=== PATIENT | female | born 1955 | race Caucasian/White ===

== ENCOUNTER → 2019-09-02 16:20 | Outpatient (CLI) | payer OTHER, SELFPAY ==
[2016-01-26 11:03] VITALS: BMI 23.6
== END ==
PROVIDERS: PCP Family Medicine; Referring Provider Urology; Visit Provider Urology
DX: N20.9 Urinary calculus, unspecified (principal)
CPT/HCPCS: 82360

== ENCOUNTER 2021-10-18 10:05 | Outpatient (CLI) | payer OTHER, SELFPAY ==
--- NOTE | 2021-10-18 10:16 | RAD_ITS ---
STUDY: AP SUPINE ABDOMEN AND PELVIS X-RAY--2 VIEWS OF 223 HOURS ON 10/18/2021 REASON FOR EXAM: 66-year-old female with flank pain--evaluate for urinary calculus. TECHNIQUE: A 2 view supine AP abdomen/pelvis x-ray series was performed per protocol. COMPARISON: None. FINDINGS: Mild demineralization. No organomegaly. Presence of multiple calcifications or calculi in both kidneys. Largest measures 6 mm in diameter. No calcifications or calculi in the region of the ureters or bladder. There are 2 pelvic phleboliths in the left pelvis. There is a question of an 8 centimeter diameter mass-like density overlying or part of the left kidney on one view. This may be artifactual. Computed tomography would be elucidative. There is [id number] constipation. There is no demonstration of other abnormalities. RAD/Abdomen Single View IMPRESSION: 1. Multiple calcifications are calculated regions of both kidneys, with the largest measuring 6 mm in diameter. 2. No calcifications or calculi in the region of the ureters or bladder. 3. Two pelvic phleboliths in the left pelvis. 4. Mild to moderate constipation. 5. Questionable 8 cm in diameter mass-like density overlying or part of the left kidney on one view. This may be artifactual. Computed tomography would be elucidative. Electronically Signed: Gaurav Sanchez MD at 17:33 EDT ,
== END 2021-10-18 23:59 | disposition home or self-care (01) ==
PROVIDERS: PCP Family Medicine; Referring Provider Registered Nurse; Visit Provider Registered Nurse
DX: N20.9 Urinary calculus, unspecified (principal)
CPT/HCPCS: 74018

== ENCOUNTER → 2022-02-13 | Outpatient (CLI) | payer OTHER, SELFPAY ==
--- NOTE | 2022-02-13 17:31 | CT_ITS ---
STUDY: CT ABDOMEN AND PELVIS WITH CONTRAST REASON FOR EXAM: Female, 66 years old. History of left renal cyst. RADIATION DOSAGE (If Supplied By Facility): CTDIvol = ( 15.43 ) mGy, DLP = ( 900.09 ) mGycm TECHNIQUE: Transaxial images were obtained from the dome of the diaphragm to the symphysis pubis without oral contrast. IV 100mL Isovue-300 was administered. Sagittal and coronal images were reconstructed. Individualized dose optimization techniques were used for this CT. COMPARISON: Comparison is made with prior study 01/26/2016. FINDINGS: Stable mild degree of increased markings in the anterior aspect of the left lower lobe suggestive of scarring. The visualized portions of the heart are within normal limits. There is decreased attenuation of the liver consistent with steatosis. Normal gallbladder and extrahepatic biliary system. Normal spleen. Normal pancreas. Normal bilateral adrenal glands. Multiple nonobstructive right intrarenal calculi. 1.3 cm cyst in the upper pole of the right kidney. There is a 7.5 cm x 6.6 cm cyst in the anterior lateral superior and midportion of the left kidney. Multiple nonobstructive left intrarenal calculi. These are essentially unchanged. Medullary sponge kidney should be ruled out. There is a small hiatal hernia. Normal small intestine. There are scattered colonic diverticula consistent with diverticulosis. The appendix is visualized and appears normal. There is diffuse atherosclerotic calcification of the abdominal aorta, without a demonstrated aneurysm. Normal inferior vena cava. Normal retroperitoneum. Normal urinary bladder. There is a small umbilical hernia containing fat. There are degenerative changes of the visualized lumbar spine. CT/Abdomen/Pelvis W IV Cont ONLY IMPRESSION: Large cyst in the left kidney. Multiple bilateral nonobstructive intrarenal calculi. These are unchanged. Medullary sponge kidney should be ruled out. Fatty infiltration of the liver. Electronically Signed: Boubacar Humphreys MD at 9:04 EDT ,
[2022-02-13 18:00] LABS: CREATININE FINGERSTICK < 0.9 mg/dL (0.55-1.02); EGFR FINGERSTICK > 60.0000 mL/min (>60)
== END | disposition home or self-care (01) ==
LOC: CT 17:26
PROVIDERS: PCP Family Medicine; Visit Provider Urology
DX: N28.1 Cyst of kidney, acquired (principal)
CPT/HCPCS: 74177; Q9967

== ENCOUNTER → 2025-06-02 | Outpatient (CLI) | payer MEDICARE, OTHER, SELFPAY ==
[2025-06-02 08:26] LABS: Mucous, Urine 0 SEEN /hpf (<or=2+); Red Blood Cells-Urine 0 SEEN /hpf (0-5)
[2025-06-02 10:19] LABS: Color, Urine Yellow (Yellow); Glucose, Dipstick Normal (Normal); Ketone-Dipstick Negative (Negative); Leukocyte Esterase-Dipstick 25 /ul (Negative); Nitrite-Dipstick Negative (Negative); Occult Blood-Urine 10 /ul (Negative); Protein-Dipstick 15 mg/dl (Negative); Specific Gravity, Urine 1.010 (1.002-1.030); Urine Bilirubin Dipstick Negative (Negative)
[2025-06-02 10:20] LABS: Hematocrit 46.8 % (37-47); Hemoglobin 15.4 g/dL (12.0-15.0); Immature Granulocytes Count 0.010 X10^3/uL (0.0-0.0); Mean Corp Hgb Conc 32.9 g/dL (32-36); Mean Corpuscular Volume 94.5 fL (81-99); Mean Platelet Vol. 9.8 fl (6.2-12.0); NRBC Flagged by Analyzer 0 % (0-5); Platelet Count 216 K/mm3 (150-450); RBC Distribution Width CV 12.3 % (11.6-14.6); RBC Distribution Width SD 42.5 fl (35.1-43.9); Red Blood Count 4.95 M/mm3 (4.2-5.4); White Blood Count 4.3 K/mm3 (4.4-11.0)
[2025-06-02 10:42] LABS: Creatinine, Urine (random) 80.50 mg/dL (28.00-217.00); Microalbumin,Random Urine 22.1 mg/L (<20 mg/L)
[2025-06-02 10:50] LABS: Squamous Epithelial Cells - UA 0-5 SEEN /hpf (5-10)
[2025-06-02 11:04] LABS: AST(SGOT) 30 U/L (<=31); Alanine Aminotransfer ALT/SGPT 31 U/L (<=34); Albumin, Serum 4.1 g/dL (3.4-4.8); Alkaline Phosphatase 55 U/L (35-104); Anion Gap 9 (5-15); BUN 14 mg/dL (4-19); BUN/Creat Ratio 15.6 RATIO (10-20); Calcium,Total 8.8 mg/dL (7.6-11.0); Carbon Dioxide 27.4 mmol/L (21.0-32.0); Chloride 105 mmol/L (98-108); Cholesterol 152 mg/dL (<=200); Globulin 2.8 g/dL (2.2-4.2); Glucose 100 mg/dL (70-99); Hepatitis C Antibody Nonreactive (Nonreactive); Low Density Lipoprotein Calc. 74 mg/dL; Potassium 4.2 mmol/L (3.3-5.1); Triglycerides 93 mg/dL; Very Low Density Lipoprotein 19 mg/dL (5-40); Vitamin D,25 Hydroxy 42.3 ng/mL (30-100); cholesterol:hdl ratio screen 2.51
== END | disposition home or self-care (01) ==
LOC: CIMLAB 08:24
PROVIDERS: PCP Internal Medicine; Referring Provider Internal Medicine; Visit Provider Internal Medicine
DX: E78.00 Pure hypercholesterolemia, unspecified (principal); Z86.32 Personal history of gestational diabetes; E03.9 Hypothyroidism, unspecified; M85.80 Other specified disorders of bone density and structure, unspecified site; I10 Essential (primary) hypertension
CPT/HCPCS: 36415; 80053; 80061; 81001; 82043; 82306; 82570; 83036; 84443; 85025; 86803

== ENCOUNTER → 2025-06-17 | Outpatient (CLI) | payer MEDICARE, OTHER, SELFPAY ==
--- NOTE | 2025-06-17 07:16 | BI_ITS ---
EXAM: SCRN MAMM (CAD)W/AMY BILAT DATE: 06/17/2025 CLINICAL HISTORY: F, Age 69 y/o , SCRN MAMM (CAD)W/AMY BILAT TECHNIQUE: Procedure Code: [id number] Modality: MG Procedure: SCRN MAMM (CAD)W/AMY BILAT COMPARISON: Prior exam(s) dated 05/18/2024, 12/10/2022. FINDINGS: TISSUE DENSITY: The breasts are heterogeneously dense, which may obscure small masses. The mammogram demonstrates that the patient has dense breasts. Supplemental screening with whole breast ultrasound or MRI may be considered for further evaluation. Bilateral Breast Mammographic Findings: No significant masses, calcifications or other abnormalities are identified. BI/SCRN MAMM (CAD)W/AMY BILAT IMPRESSION: There is no mammographic evidence of malignancy. OVERALL FINAL ASSESSMENT BI-RADS 1: NEGATIVE. RECOMMENDATION: Routine annual follow-up in 1 Year Additional Recommendation none A letter with findings and recommendations will be mailed to the patient. Reading Location: [id number]
--- OUTSIDE RECORDS SUMMARY | 2025-06-17 07:36 | XMS RPT_ITS | CCD ---
Author Organization [facility] Care Team Providers Care Composing Room Machinist Name Role Phone Keshawn French Primary Care Provider Mauro Tomlinson DO Primary Care Provider Mauro Tomlinson DO Primary Care Provider Keshawn French DO Primary Care Provider Keshawn French DO Primary Care Provider Mauro Tomlinson DO Primary Care Provider Keshawn French DO Primary Care Provider Davi SHOOK Mauro Wili Primary Care Provide r SELF Referring Unavailable [facility] Primary Care Unavail able RYAN BARBOSA Attending Unavailabl e [facility] Referring Unavail able [facility] Primary Care Unavail able MORENITA KAN Attending Unavailable [facility] Primary Care Unavail able RYAN BARBOSA Referring Unavailabl e [facility] Primary Care Unavail able RYAN BARBOSA Referring [facility]abl [facility] Primary Care Unavail able RYAN BARBOSA Referring Unavailabl e [facility] Primary Care Unavail able ELDON, YUMI Admitting Unavailable ELDON, YUMI Attending Unavailable ELDON, YUMI Referring Unavailable PETRIA, ADAMS Primary Care Unavailable PETRIA, ADAMS Primary Care Unavailable ELDON, YUMI Attending Unavailable PETRILLA, ADAMS Primary Care Unavailable MoecassoKeshawn Primary Care Unavailable Fast, Doris Attending Unavailable Fast, Doris Referring Unavailable Fast, Doris Primary Care Unavailable Fast, Doris Attending Unavailable Fast, Doris Primary Care Unavailable Fast, Doris Attending Unavailable Fast, Doris Referring Unavailable Allergies Allergy Classification Reported Allergen(s) Allergy Type Date of Onset Reaction(s) Facility Adhesive Tape (1 source) Adhesive Tape Substance Allergy 1 [facility] (1 source) Adhesive Tape Propensity to adverse reactions to drug 1 [facility] (20 sources) Wound Dressing Adhesive Drug Intolerance 1 [facility] (20 sources) Lisinopril; Translations: [LISINOPRIL] Propensity to adverse reactions 3 Cough [facility] (13 sources) Lisinopril Drug Allergy 4 Cough [facility] Medications Current Medications Medication Drug Class(es) Dates Sig (Normalized) Sig (Original) acetaminophen 325 mg / HYDROcodone bitartrate 5 mg oral tablet (3 sources) Opioid Agonist Start: 01-26-2016 take 1 tablet by mouth every four hours as needed Hydrocodone-Aceta minophen Active 1 - 2 TABLET PO EVERY 4 HOURS NEEDED January 26, 2016 1:32pm alendronic acid 70 mg oral tablet (20 sources) Bisphosphonate Start: 07-01-2022 End: 02-03-2025 take 1 tablet by mouth every week alendronate (Fosamax) 70 MG tablet Take 70 mg by mouth once a week. 07/01/2022 Active Comment on above: Take 1 tablet by tyrone one time a week. In AM with cup of water on empty stomach. Nothing else by mouth and stay upright for 30 min. atorvastatin 10 mg oral tablet (2 sources) HMG-CoA Reductase Inhibitor Start: 08-03-2022 End: 11-01-2022 take 1 tablet by mouth once daily atorvastatin (Lipitor) 10 MG tablet Take 1 tablet (10 mg) by mouth daily. 90 tablet 1 08/03/2022 11/01/2022 Active cetirizine hydrochloride 10 mg oral tablet (20 sources) Histamine-1 Receptor Antagonist Start: 04-14-2023 End: 08-29-2025 take 1 tablet by mouth once daily cetirizine (ZyrTEC) 10 MG tablet Indications: Sinus congestion Take 1 tablet (10 mg) by mouth daily. 90 tablet 3 09/03/2024 08/29/2025 Active Start: 11-13-2022 End: 03-25-2023 take 1 tablet by mouth once daily cetirizine (ZyrTEC) 10 MG tablet Indications: Sinus congestion Take 1 tablet (10 mg) by mouth daily. 30 tablet 1 01/24/2023 03/25/2023 Active cholecalciferol 0.125 mg oral tablet (20 sources) Vitamin D Start: 07-01-2020 take 1 tablet by mouth once daily cholecalciferol (VITAMIN D-3) 5,000 unit tab Indications: Vitamin D deficiency Take 1 tablet by mouth once daily. 90 tablet 3 07/01/2020 Active Start: 05-02-2016 take 1 capsule by mo [facility] in the morning cholecalciferol (Vitamin D-3) 25 MCG (1000 UT) capsule Take 5,000 Units by mouth in the morning. 05/02/2016 Active Start: 05-02-2016 vitamin D 1000 UNITS CAPS Take 5,000 Units by mouth daily 0 05/02/2016 Active Start: 05-02-2016 take 1 capsule by mo [facility] once daily vitamin D 1000 UNITS CAPS Take 1,000 Units by mouth daily 0 05/02/2016 Active Comment on above: Take 1 tablet by [facility] once daily. fluorouracil 50 mg/ml topical cream (7 sources) Nucleoside Metabolic Inhibitor Start: 01-07-20 25 Fluorouracil 5 % cream Apply to affected area two times a day. 01/06/2025 Active fluticasone propionate 0.05 mg/actuat metered dose nasal spray (20 sources) Corticosteroid Start: 04-16-20 End: 05-10-20 take 1 spray(s) nasal route once daily fluticasone (Flonase) 50 MCG/ACT nasal spray Administer 1 spray into each nostril daily. Shake gently. Before first use, prime pump. After use, clean tip and replace cap. 16 g 1 05/10/2025 Active Start: 11-13-2022 End: 04-28-2024 take 2 spray(s) nasal route twice daily fluticasone (Flonase) 50 MCG/ACT nasal spray Indications: Sinus congestion Administer 2 sprays into each nostril 2 times daily. Shake gently. Before first use, prime pump. After use, clean tip and replace cap. 16 g 1 04/29/2023 01/27/2024 Discontinued (Alternate therapy) levothyroxine sodium 0.075 mg oral tablet (20 sources) l-Thyroxine Start: 04-17-2022 Synthroid 75 M CG tablet 04/17/2022 Active Start: 01-26-2016 End: 02-15-2025 levothyroxine (SYNTHROID) 75 mcg tablet Indications: Postoperative hypothyroidism Take one pill daily, no pill on Sundays. 90 tablet 3 01/19/2024 02/15/2025 Discontinued Comment on above: Take one pill daily, no pill on Sundays. lisinopril 5 mg oral tablet (19 sources) Angiotensin Converting Enzyme Inhibitor Start: 0 End: 4 take 1 tablet by mouth once daily lisinopril 5 MG tablet Take 1 tablet (5 mg) by mouth daily. 90 tablet 1 07/18/2022 Active Comment on above: Take 5 mg by mouth o nce daily. losartan potassium 25 mg oral tablet (20 sources) Angiotensin 2 Receptor Angus Start: 4 End: 5 take 1 tablet by mouth once daily losartan (Cozaar) 50 MG tablet Take 1 tablet (50 mg) by mouth daily. 30 tablet 11 05/13/2024 05/17/2024 Discontinued (Patient refused) Start: 04-16-2024 End: 05-17-2025 take 1 tablet by mouth once daily losartan (Cozaar) 25 MG tablet Take 1 tablet (25 mg) by mouth daily. \ 90 tablet 1 03/08/2025 Active ondansetron 4 mg disintegrating oral tablet (3 sources) Serotonin-3 Receptor Antagonist Start: 01-26-2016 take 4 mg by mouth every eight hours as needed Ondansetron Active 4 MG PO EVERY 8 HOURS NEEDED January 26, 2016 1:32pm predniSONE 10 mg oral tablet (1 source) Start: 07-13-2020 predniSONE (DELTASONE) 10 MG tablet one q.i.d. for 2 days then one t.i.d. for 2 days then one b.i.d. for 2 days and one daily for 2 days. 20 tablet 0 07/13/2020 Active rosuvastatin calcium 10 mg oral tablet (5 sources) HMG-CoA Reductase Inhibitor Start: 01-21-2025 take 1 tablet by mouth once daily rosuvastatin (CRESTOR) 10 mg tablet Indications: Hypercholesterolemia Take 1 tablet by mouth once daily. 90 tablet 3 01/21/2025 Active Completed/Discontinued Medications Medication Drug Class(es) Dates Sig (Normalized) Sig (Original) docosahexaenoic acid 120 mg / eicosapentaenoic acid 180 mg oral capsule (11 sources) End: 07-25-2023 omega-3 (Fish Oil) 1000 MG capsule Take 3,000 mg by mouth. 0 07/25/2023 Discontinued (Therapy completed) Red Yeast Rice Extract (RED YEAST RICE PO) (5 sources) End: 07-25-2023 take 600 mg by mouth once daily Red Yeast Rice Extract (RED YEAST RICE PO) Take 600 mg by mouth daily. 0 07/25/2023 Discontinued (Therapy completed) take 600 mg by mouth once daily Red Yeast Rice Extract (RED YEAST RICE PO) Take 600 mg by mouth daily. 0 Active Problems Active Problems Problem Classification Problem Date Documented Da te Episodic/Chronic Complications of surgical procedures or medical care (20 sources) Postoperative hypothyroidism; Translations: [Postprocedural hypothyroidism] Onset: 03-05-2011 Chronic Diabetes or abnormal glucose tolerance complicating ; childbirth; or the puerperium (1 source) Personal history of gestational diabetes; Translations: [Personal history of gestational diabetes] Onset: 06-02-2025 Episodic Disorders of lipid metabolism (20 sources) Hypercholesterolemia ; Translations: [Pure hypercholesterolemia , unspecified] Onset: 12-18-2016 08-22-2017 Chronic Essential hypertension (20 sources) Essential hypertension; Translations: [Essential (primary) hypertension] Onset: 01-16-2023 01-16-2023 Chronic Genitourinary congenital anomalies (20 sources) Medullary sponge kidney; 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] Onset: 03-05-2011 08-22-2017 Chronic Menopausal disorders (6 sources) Premature menopause; Translations: [Asymptomatic premature menopause] Onset: 01-19-2025 01-19-2025 Chronic Nonspecific chest pain (1 source) Chest discomfort; Translations: [Other chest pain] 01-16-2023 Episodic Nutritional deficiencies (20 sources) Vitamin D deficiency; Translations: [Vitamin D deficiency, unspecified] Onset: 05-02-2016 Chronic Osteoarthritis (2 sources) Osteoarthritis of joint of right shoulder region; Translations: [Primary osteoarthritis, right shoulder] 04-27-2024 Chronic Other bone disease and musculoskeletal deformities (2 sources) Other specified disorders of bone density and structure, unspecified site; Translations: [Osteopenia, unspecified location] Onset: 08-16-2021 Episodic Other lower respiratory disease (1 source) Snoring; Translations: [Snoring] 04-16-2024 Episodic Other non-traumatic joint disorders (1 source) Chronic ankle pain; Translations: [Chronic pain of left ankle] Episodic Other non-traumatic joint disorders (5 sources) Pain in right shoulder; Translations: [Pain in joint, shoulder region] 04-16-2024 Episodic Other screening for suspected conditions (not mental disorders or infectious disease) (8 sources) Patient encounter status; Translations: [Encounter for screening for diabetes mellitus] Onset: 05-18-2024 01-16-2023 Episodic Other upper respiratory disease (18 sources) Allergic rhinitis; Translations: [Allergic rhinitis, unspecified] 04-16-2024 Chronic Other upper respiratory disease (5 sources) Congestion of nasal sinus; Translations: [Nasal congestion] 01-24-2023 Episodic Residual codes; unclassified (1 source) Other specified health status; Translations: [Other drug allergy] 01-16-2023 Episodic Spondylosis; intervertebral disc disorders; other back problems (1 source) Acute low back pain; Translations: [Acute low back pain without sciatica, unspecified back pain laterality] 06-07-2022 Episodic Thyroid disorders (20 sources) Hypothyroidism; Translations: [Hypothyroidism, unspecified] Onset: 03-05-2011 Resolved: 01-27-2024 08-22-2017 Chronic Past or Other Problems Problem Classification Problem Date Documented Da te Episodic/Chronic Other and unspecified benign neoplasm (20 sources) Polyp of ascending colon; Translations: [Polyp of colon] Onset: 01-16-2023 Resolved: 07-25-2023 01-16-2023 Episodic Other bone disease and musculoskeletal deformities (20 sources) Osteopenia; Translations: [Other specified disorders of bone density and structure, unspecified site] Onset: 04-14-2014 Episodic Other connective tissue disease (1 source) Pain in right thumb Episodic Other connective tissue disease (1 source) Digital mucous cyst Episodic Other endocrine disorders (15 sources) Hyperparathyroidism; Translations: [Hyperparathyroidism ] Onset: 04-02-2003 Resolved: 03-05-2011 03-05-2011 Chronic Other endocrine disorders (15 sources) Primary hyperparathyroidism; Translations: [Primary hyperparathyroidism] Onset: 03-05-2011 Resolved: 03-05-2011 03-05-2011 Chronic Other lower respiratory disease (20 sources) Angiotensin-converti ng-enzyme inhibitor adverse reaction; Translations: [Cough secondary to angiotensin converting enzyme inhibitor (DEVON-I)] Onset: 07-25-2023 07-25-2023 Episodic Other nutritional; endocrine; and metabolic disorders (20 sources) H/O: endocrine disorder; Translations: [Personal history of other endocrine, nutritional and metabolic disease] Onset: 08-22-2017 08-22-2017 Episodic Residual codes; unclassified (20 sources) History of colonoscopy; Translations: [Other specified postprocedural states] Onset: 07-25-2023 07-25-2023 Episodic Results Test Name Value Interpretation Reference Range Facility CBC W/Diff, Automatedon 11-0 Absolute Lymph 1.84 X10 3/uL Normal 0.83-4.51 [facility] Comment on above: Performed By: #### L 400.0001, L500.4050, L506.1001, L3890.6301, L501.9985, L100.0100, L501.9520, L500.4100, L502.0250 #### [facility] [address] [place], [address] Absolute Neut 2.0 X10 3/uL Normal 2.0-7.7 [facility] Comment on above: Performed By: #### L 400.0001, L500.4050, L506.1001, L3890.6301, L501.9985, L100.0100, L501.9520, L500.4100, L502.0250 #### [facility] [address] [place], [address] Basophils/100 WBC (Bld) 0.7 % Normal 0-1 [facility] Comment on above: Performed By: #### L 400.0001, L500.4050, L506.1001, L3890.6301, L501.9985, L100.0100, L501.9520, L500.4100, L502.0250 #### [facility] [address] [place], [address] Eosinophils/100 WBC (Bld) 1.6 % Normal 0-5 [facility] Comment on above: Performed By: #### L 400.0001, L500.4050, L506.1001, L3890.6301, L501.9985, L100.0100, L501.9520, L500.4100, L502.0250 #### [facility] [address] [place], [address] Erythrocyte distribution width (RBC) [Ratio] 12.3 % Normal 11.6-14.6 [facility] Comment on above: Performed By: #### L 400.0001, L500.4050, L506.1001, L3890.6301, L501.9985, L100.0100, L501.9520, L500.4100, L502.0250 #### [facility] [address] [place], [address] Hematocrit (Bld) [Volume fraction] 46.8 % Normal 37-47 [facility] Comment on above: Performed By: #### L 400.0001, L500.4050, L506.1001, L3890.6301, L501.9985, L100.0100, L501.9520, L500.4100, L502.0250 #### [facility] [address] [place], [address] Hemoglobin (Bld) [Mass/Vol] 15.4 g/dL High 12.0-15.0 [facility] Comment on above: Performed By: #### L 400.0001, L500.4050, L506.1001, L3890.6301, L501.9985, L100.0100, L501.9520, L500.4100, L502.0250 #### [facility] [address] [place], [address] IG% 0.200 Normal 0.0-0.9 [facility] Comment on above: Result Comment: IG% - Immature Granulocytes (promyelocytes, myelocytes and metamyelocytes) > 1% indicates that a LEFT SHIFT is Present. Performed By: #### L 400.0001, L500.4050, L506.1001, L3890.6301, L501.9985, L100.0100, L501.9520, L500.4100, L502.0250 #### [facility] [address] [place], [address] Lymphocytes/100 WBC (Bld) 42.8 % High 19-41 [facility] Comment on above: Performed By: #### L 400.0001, L500.4050, L506.1001, L3890.6301, L501.9985, L100.0100, L501.9520, L500.4100, L502.0250 #### [facility] [address] [place], [address] MCH (RBC) [Entitic mass] 31.1 pg Normal 27.0-32.0 [facility] Comment on above: Performed By: #### L 400.0001, L500.4050, L506.1001, L3890.6301, L501.9985, L100.0100, L501.9520, L500.4100, L502.0250 #### [facility] [address] [place], [address] MCHC (RBC) [Mass/Vol] 32.9 g/dL Normal 32-36 [facility] Comment on above: Performed By: #### L 400.0001, L500.4050, L506.1001, L3890.6301, L501.9985, L100.0100, L501.9520, L500.4100, L502.0250 #### [facility] [address] [place], [address] MCV (RBC) [Entitic vol] 94.5 fL Normal 81-99 [facility] Comment on above: Performed By: #### L 400.0001, L500.4050, L506.1001, L3890.6301, L501.9985, L100.0100, L501.9520, L500.4100, L502.0250 #### [facility] [address] [place], [address] Monocytes/100 WBC (Bld) 7.9 % Normal 0-10 [facility] Comment on above: Performed By: #### L 400.0001, L500.4050, L506.1001, L3890.6301, L501.9985, L100.0100, L501.9520, L500.4100, L502.0250 #### [facility] [address] [place], [address] Neutrophils/100 WBC (Bld) 46.8 % Low 47-70 [facility] Comment on above: Performed By: #### L 400.0001, L500.4050, L506.1001, L3890.6301, L501.9985, L100.0100, L501.9520, L500.4100, L502.0250 #### [facility] [address] [place], [address] Nucleated RBC (Bld) [#/Vol] 0 10*3/uL Normal 0-5 [facility] Comment on above: Performed By: #### L 400.0001, L500.4050, L506.1001, L3890.6301, L501.9985, L100.0100, L501.9520, L500.4100, L502.0250 #### [facility] [address] [place], [address] Platelet mean volume (Bld) [Entitic vol] 9.8 fL Normal 6.2-12.0 [facility] Comment on above: Performed By: #### L 400.0001, L500.4050, L506.1001, L3890.6301, L501.9985, L100.0100, L501.9520, L500.4100, L502.0250 #### [facility] [address] [place], [address] Platelets (Bld) [#/Vol] 216 10*3/uL Normal 150-450 [facility] Comment on above: Performed By: #### L 400.0001, L500.4050, L506.1001, L3890.6301, L501.9985, L100.0100, L501.9520, L500.4100, L502.0250 #### [facility] [address] [facility] [place], [address] RBC (Bld) [#/Vol] 4.95 10*6/uL Normal 4.2-5.4 [facility] Comment on above: Performed By: #### L 400.0001, L500.4050, L506.1001, L3890.6301, L501.9985, L100.0100, L501.9520, L500.4100, L502.0250 #### [facility] [address] [facility] [place], [address] RDW SD 42.5 fl Normal 35.1-43.9 [facility] Comment on above: Performed By: #### L 400.0001, L500.4050, L506.1001, L3890.6301, L501.9985, L100.0100, L501.9520, L500.4100, L502.0250 #### [facility] [address] [facility] [address] [place], [address] WBC (Bld) [#/Vol] 4.3 10*3/uL Low 4.4-11.0 [facility] Comment on above: Performed By: #### L 400.0001, L500.4050, L506.1001, L3890.6301, L501.9985, L100.0100, L501.9520, L500.4100, L502.0250 #### [facility] [address] [place], [place], [id number] Comprehensive Metabolic Prof ilon 06-02-2025 Albumin [Mass/Vol] 4.1 g/dL Normal 3.4-4.8 [facility] Comment on above: Performed By: #### L 400.0001, L500.4050, L506.1001, L3890.6301, L501.9985, L100.0100, L501.9520, L500.4100, L502.0250 #### [facility] [address] [place], [place], [id number] Albumin/Globulin [Mass ratio] 1.5 {ratio} Normal 0.9-2.4 [facility] Comment on above: Performed By: #### L 400.0001, L500.4050, L506.1001, L3890.6301, L501.9985, L100.0100, L501.9520, L500.4100, L502.0250 #### [facility] [address] [place], [place], [id number] ALK PHOS 55 U/L Normal 35-104 [facility] Comment on above: Performed By: #### L 400.0001, L500.4050, L506.1001, L3890.6301, L501.9985, L100.0100, L501.9520, L500.4100, L502.0250 #### [facility] [address] [place], [address] ALT [Catalytic activity/Vol] 31 U/L Normal <=34 [facility] Comment on above: Performed By: #### L 400.0001, L500.4050, L506.1001, L3890.6301, L501.9985, L100.0100, L501.9520, L500.4100, L502.0250 #### [facility] [address] [place], [address] AST [Catalytic activity/Vol] 30 U/L Normal <=31 [facility] Comment on above: Performed By: #### L 400.0001, L500.4050, L506.1001, L3890.6301, L501.9985, L100.0100, L501.9520, L500.4100, L502.0250 #### [facility] [address] [place], [address] Bilirubin [Mass/Vol] 0.76 mg/dL Normal 0.00-1.30 [facility] Comment on above: Performed By: #### L 400.0001, L500.4050, L506.1001, L3890.6301, L501.9985, L100.0100, L501.9520, L500.4100, L502.0250 #### [facility] [address] [place], [address] BUN/CRE 15.6 RATIO Normal 10-20 [facility] Comment on above: Performed By: #### L 400.0001, L500.4050, L506.1001, L3890.6301, L501.9985, L100.0100, L501.9520, L500.4100, L502.0250 #### [facility] [address] [place], [address] Calcium [Mass/Vol] 8.8 mg/dL Normal 7.6-11.0 [facility] Comment on above: Performed By: #### L 400.0001, L500.4050, L506.1001, L3890.6301, L501.9985, L100.0100, L501.9520, L500.4100, L502.0250 #### [facility] [address] [place], [address] Chloride [Moles/Vol] 105 mmol/L Normal 98-108 [facility] Comment on above: Performed By: #### L 400.0001, L500.4050, L506.1001, L3890.6301, L501.9985, L100.0100, L501.9520, L500.4100, L502.0250 #### [facility] [address] [place], [place], [id number] (968) CO2 [Moles/Vol] 27.4 mmol/L Normal 21.0-32.0 [facility] Comment on above: Performed By: #### L 400.0001, L500.4050, L506.1001, L3890.6301, L501.9985, L100.0100, L501.9520, L500.4100, L502.0250 #### [facility] [address] [place], [address] (100) Creatinine [Mass/Vol] 0.89 mg/dL Normal 0.70-1.20 [facility] Comment on above: Performed By: #### L 400.0001, L500.4050, L506.1001, L3890.6301, L501.9985, L100.0100, L501.9520, L500.4100, L502.0250 #### [facility] [address] [place], [place], [id number] [phone] Normal 5-15 [facility] Comment on above: Performed By: #### L 400.0001, L500.4050, L506.1001, L3890.6301, L501.9985, L100.0100, L501.9520, L500.4100, L502.0250 #### [facility] [address] [place], [place], [id number] (084 GFR/1.73 sq M.predicted among non-blacks MDRD (S/P/Bld) [Vol rate/Area] 70 mL/min/{1.73_m2} Normal >60 [facility] Comment on above: Result Comment: mL/m in/1.73m2 CKD-EPI Creatinine Equation (2020) Performed By: #### L 400.0001, L500.4050, L506.1001, L3890.6301, L501.9985, L100.0100, L501.9520, L500.4100, L502.0250 #### [facility] [address] [place], [address] Globulin (S) [Mass/Vol] 2.8 g/dL Normal 2.2-4.2 [facility] Comment on above: Performed By: #### L 400.0001, L500.4050, L506.1001, L3890.6301, L501.9985, L100.0100, L501.9520, L500.4100, L502.0250 #### [facility] [address] [place], [address] Glucose [Mass/Vol] 100 mg/dL High 70-99 [facility] Comment on above: Performed By: #### L 400.0001, L500.4050, L506.1001, L3890.6301, L501.9985, L100.0100, L501.9520, L500.4100, L502.0250 #### [facility] [address] [place], [address] Potassium [Moles/Vol] 4.2 mmol/L Normal 3.3-5.1 [facility] Comment on above: Performed By: #### L 400.0001, L500.4050, L506.1001, L3890.6301, L501.9985, L100.0100, L501.9520, L500.4100, L502.0250 #### [facility] [address] [place], [address] Sodium [Moles/Vol] 141 mmol/L Normal 133-145 [facility] Comment on above: Performed By: #### L 400.0001, L500.4050, L506.1001, L3890.6301, L501.9985, L100.0100, L501.9520, L500.4100, L502.0250 #### [facility] [address] [place], [address] T PROT 7.0 g/dL Normal 5.9-8.4 [facility] Comment on above: Performed By: #### L 400.0001, L500.4050, L506.1001, L3890.6301, L501.9985, L100.0100, L501.9520, L500.4100, L502.0250 #### [facility] [address] [place], [address] Urea nitrogen [Mass/Vol] 14 mg/dL Normal 4-19 [facility] Comment on above: Performed By: #### L 400.0001, L500.4050, L506.1001, L3890.6301, L501.9985, L100.0100, L501.9520, L500.4100, L502.0250 #### [facility] [address] [place], [address] Hemoglobin A1con 06-02-2025 HbA1c (Bld) [Mass fraction] 5.9 % High <=5.6 [facility] Comment on above: Result Comment: Norm al < 5.7 % Prediabetic 5.7 - 6.4 % Diabetic >or= 6.5 % Please note range changes. Performed By: #### L 400.0001, L500.4050, L506.1001, L3890.6301, L501.9985, L100.0100, L501.9520, L500.4100, L502.0250 #### [facility] [address] [place], [address] Hepatitis C Antibodyon 06-02 Hepatitis C Ab Non-Reactive Normal Nonreactive [facility] Comment on above: Result Comment: Reac tive: Presumptive evidence of antibodies to HCV. Follow CDC recommendations for supplemental testing. Non-Reactive: Antibodies to HCV were not detected; does not exclude the possibility of exposure to HCV Reactive Results are presumptive evidence of antibodies to HCV. Follow CDC recommendations for supplemental testing. Order confirmation testing: HCV Quant by PCR testing - HCVPCR #[id number] Non Reactive: < 0.8 Equivocal: >/= 0.8 to < 1.0 Reactive: >/= 1.0 The CDC requires that a reactive/equivocal HCV antibody result be sent out for confirmation. HCV Quant by PCR testing. Performed By: #### L 400.0001, L500.4050, L506.1001, L3890.6301, L501.9985, L100.0100, L501.9520, L500.4100, L502.0250 #### [facility] [address] [place], [place], [id number] Lipid Profileon 06-02-2025 CHOL:HDL 2.51 Normal [facility] Comment on above: Performed By: #### L 400.0001, L500.4050, L506.1001, L3890.6301, L501.9985, L100.0100, L501.9520, L500.4100, L502.0250 #### [facility] [address] [place], [place], [id number] Cholesterol [Mass/Vol] 152 mg/dL Normal <=200 [facility] Comment on above: Result Comment: Chol esterol level, Desirable <200 mg/dL Borderline high cholesterol 200-239 mg/dL High cholesterol >=240 mg/dL Recommendations of the NCEP Adult Treatment Panel for the following risk-cutoff thresholds for the [place] population. Performed By: #### L 400.0001, L500.4050, L506.1001, L3890.6301, L501.9985, L100.0100, L501.9520, L500.4100, L502.0250 #### [facility] [address] [place], [address] Cholesterol in HDL [Mass/Vol] 61 mg/dL Normal [facility] Comment on above: Result Comment: Kayy onal Cholesterol Education Program (NCEP) guidelines: <40 mg/dL: Low HDL-cholesterol (major risk factor for CHD) >= 60 mg/dL: High HDL-cholesterol (negative risk factor for CHD) HDL-cholesterol is affected by a number of factors, e.g. smoking, exercise, hormones, sex and age. Performed By: #### L 400.0001, L500.4050, L506.1001, L3890.6301, L501.9985, L100.0100, L501.9520, L500.4100, L502.0250 #### [facility] [address] [place], [place], [id number] Cholesterol in LDL [Mass/Vol] 74 mg/dL Normal [facility] Comment on above: Result Comment: Bord sqtoxk=934-496 mg/dL Higher Qnpa=388 mg/dL or greater Barry Equation 2020 for LDL-C Performed By: #### L 400.0001, L500.4050, L506.1001, L3890.6301, L501.9985, L100.0100, L501.9520, L500.4100, L502.0250 #### [facility] [address] [place], [address] Cholesterol in VLDL [Mass/Vol] 19 mg/dL Normal 5-40 [facility] Comment on above: Performed By: #### L 400.0001, L500.4050, L506.1001, L3890.6301, L501.9985, L100.0100, L501.9520, L500.4100, L502.0250 #### [facility] [address] [place], [address] Triglyceride [Mass/Vol] 93 mg/dL Normal [facility] Comment on above: Result Comment: The drugs N-Acetylcysteine and Metamizole may falsely depress this assay. Normal range: <150 mg/dL Borderline High: 150-199 mg/dL High: 200-499 mg/dL Very High: >500 mg/dL Performed By: #### L 400.0001, L500.4050, L506.1001, L3890.6301, L501.9985, L100.0100, L501.9520, L500.4100, L502.0250 #### [facility] [address] [place], [address] Microalb:Creat Ratio,Random URon 06-02-2025 Creatinine [Mass/Vol] 80.50 mg/dL Normal 28.00-217.00 [facility] Comment on above: Performed By: #### L 400.0001, L500.4050, L506.1001, L3890.6301, L501.9985, L100.0100, L501.9520, L500.4100, L502.0250 #### [facility] [address] [place], [address] MALB:CREAT 27.5 mg/g CRE Normal <30 mg/g CRE [facility] Comment on above: Performed By: #### L 400.0001, L500.4050, L506.1001, L3890.6301, L501.9985, L100.0100, L501.9520, L500.4100, L502.0250 #### [facility] [address] [place], [address] MICROALBUMIN,UR 22.1 mg/L Normal <20 mg/L [facility] Comment on above: Performed By: #### L 400.0001, L500.4050, L506.1001, L3890.6301, L501.9985, L100.0100, L501.9520, L500.4100, L502.0250 #### [facility] [address] [facility] [place], [address] Thyroid Stim Hormone (TSH)on 06-02-2025 TSH 1.300 uIU/mL Normal 0.300-4.200 [facility] Comment on above: Performed By: #### L 400.0001, L500.4050, L506.1001, L3890.6301, L501.9985, L100.0100, L501.9520, L500.4100, L502.0250 #### [facility] [address] [place], [place], [id number] Urinalysis, Completeon 06-02 EPI,SQUAMOUS 0-5 SEEN Normal 5-10 [facility] Comment on above: Order Comment: Urine , Random Performed By: #### L 400.0001, L500.4050, L506.1001, L3890.6301, L501.9985, L100.0100, L501.9520, L500.4100, L502.0250 #### [facility] [address] [place], [place], [id number] BACTERIA 0 SEEN Normal None Seen [facility] Comment on above: Order Comment: Urine , Random Performed By: #### L 400.0001, L500.4050, L506.1001, L3890.6301, L501.9985, L100.0100, L501.9520, L500.4100, L502.0250 #### [facility] [address] [place], [place], [id number] Mucus Ql (Urine sed) 0 SEEN Normal [facility] Comment on above: Order Comment: Urine , Random Performed By: #### L 400.0001, L500.4050, L506.1001, L3890.6301, L501.9985, L100.0100, L501.9520, L500.4100, L502.0250 #### [facility] [address] [place], [address] RBC 0 SEEN Normal 0-5 [facility] Comment on above: Order Comment: Urine , Random Performed By: #### L 400.0001, L500.4050, L506.1001, L3890.6301, L501.9985, L100.0100, L501.9520, L500.4100, L502.0250 #### [facility] [address] [place], [address] WBC 0 SEEN Normal 0-5 [facility] Comment on above: Order Comment: Urine , Random Performed By: #### L 400.0001, L500.4050, L506.1001, L3890.6301, L501.9985, L100.0100, L501.9520, L500.4100, L502.0250 #### [facility] [address] [place], [address] Vitamin D,25 Hydroxyon 06-02 Vitamin D 25-OH 42.3 ng/mL Normal 30-100 [facility] Comment on above: Result Comment: Denice min D Status Deficiency: <20 ng/mL (50nmol/L) Insufficiency: 20-30 ng/mL (50-75 nmol/L) Sufficiency: 30-100 ng/mL (75-250 nmol/L) Toxicity: >100 ng/mL (>250 nmol/L) Performed By: #### L 400.0001, L500.4050, L506.1001, L3890.6301, L501.9985, L100.0100, L501.9520, L500.4100, L502.0250 #### [facility] [address] [place], [address] 36on 05-10-2025 36 05/13/24 last seen No future appointment Normal [facility] BD DXA - AXIAL SKELETONon BD DXA - AXIAL SKELETON * * *Final Report* * * DATE OF EXAM: Mar 22 2025 8:31AM REJI 0804 - BD DXA - AXIAL SKELETON / PROCEDURE REASON: E28.319-Premature menopause * * * * Physician Interpretation * * * * EXAMINATION: DXA BONE DENSITOMETRY BD DXA - AXIAL SKELETON, BD DXA TRABECLR BONE SCORE (TBS) PATIENT DEMOGRAPHICS: Age: 69 years, Gender: Female SCANNER INFORMATION: DXA Model: [id number] Date Scanned: 03/22/2025 8:31 AM CLINICAL HISTORY: DIAGNOSTIC Premature menopause . RISK FACTORS FOR OSTEOPOROSIS AND ASSOCIATED FRACTURES REPORTED BY THIS PATIENT: Please refer to Bone Health Questionnaire in the EMR CURRENT THERAPY: Please refer to Bone Health Questionnaire in the EMR TECHNICAL LIMITATIONS: Degenerative disease of the spine RESULTS: Lumbar Spine (L1, L2, L3, L4): Total BMD: 1.060 g/cm2, T-score: -1.0 , Z-score: 0.3 Right Femoral Neck: 0.789 g/cm2 , T-score -1.8, Z-score -0.4 Right Total Hip: 0.889 g/cm2 , T-score -0.9, Z-score 0.2 Left Femoral Neck: 0.767 g/cm2 , T-score -2.0, Z-score -0.5 Left Total Hip: 0.897 g/cm2 , T-score -0.9 , Z-score 0.3 No comparison data - the patient has not had a previous bone density in the [facility] or the previous bone density was performed on a different DXA machine (new, updated model or different location) within the [facility]. VERTEBRAL FRACTURE ASSESSMENT Not performed. TRABECULAR BONE ASSESSMENT TBS score: 1.336 Bone micro-architecture: : normal (> 1.310) IMPRESSION: THE LOWEST T-SCORE IS -2.0 IN THE LEFT HIP 1) DIAGNOSIS (based on BMD alone): OSTEOPENIA Caution: Medical conditions other than osteoporosis may cause low bone density, such as osteomalacia or renal osteodystrophy. Clinical correlation is necessary. 2) FRACTURE RISK (Based on TBS adjusted FRAX): 10-year absolute fracture risk: - major osteoporotic fracture =10.9 % % - hip fracture = 1.9 % % - A diagnosis of Osteoporosis, a 10 year probability of hip fracture greater than or equal to 3% or a 10 year probability of any major osteoporosis-related fracture greater than or equal to 20% should be considered for treatment. - DXA scanner generated FRAX calculations may slightly differ from online FRAX calculations due to differences in software versions. - All recommendations and calculations are to be considered as guidelines and should not replace sound clinical judgement - Caution: Fracture risk may be increased independent of BMD in patients with corticosteroid use, age greater than 65 years, or a history of prior fragility fracture. RECOMMENDATIONS: Follow-up in 2 years or as clinically indicated. Patients that are taking corticosteroids, are transplant recipients or have hyperparathyroidism should have annual follow-up. Follow-up scans should always be done on the same machine for accurate comparison. FOR MORE INFORMATION ABOUT DIAGNOSIS AND TREATMENT: [facility] Center for Osteoporosis and Metabolic Bone Disease:? www.ccf.org/arthritis/ osteo National Osteoporosis Foundation:? www.nof.org International Society of Clinical Densitometry www.iscd.org Identification Clerk: PSCAlbert Transcribe Date/Time: Mar 22 2025 8:43A Dictated by : ELVI HOOVER DO This examination was interpreted and the report reviewed and electronically signed by: ELVI HOOVER DO on Mar 22 2025 8:44AM EST [id number] -2.0 [facility] BD DXA TRABECLR BONE SCORE ( TBS)on 03-22-2025 BD DXA TRABECLR BONE SCORE (TBS) * * *Final Report* * * DATE OF EXAM: Mar 22 2025 8:31AM REJI 0801 - BD DXA TRABECLR BONE SCORE (TBS) / PROCEDURE REASON: E28.319-Premature menopause * * * * Physician Interpretation * * * * EXAMINATION: DXA BONE DENSITOMETRY BD DXA - AXIAL SKELETON, BD DXA TRABECLR BONE SCORE (TBS) PATIENT DEMOGRAPHICS: Age: 69 years, Gender: Female SCANNER INFORMATION: DXA Model: [employer] [id number] Date Scanned: 03/22/2025 8:31 AM CLINICAL HISTORY: DIAGNOSTIC Premature menopause . RISK FACTORS FOR OSTEOPOROSIS AND ASSOCIATED FRACTURES REPORTED BY THIS PATIENT: Please refer to Bone Health Questionnaire in the EMR CURRENT THERAPY: Please refer to Bone Health Questionnaire in the EMR TECHNICAL LIMITATIONS: Degenerative disease of the spine RESULTS: Lumbar Spine (L1, L2, L3, L4): Total BMD: 1.060 g/cm2, T-score: -1.0 , Z-score: 0.3 Right Femoral Neck: 0.789 g/cm2 , T-score -1.8, Z-score -0.4 Right Total Hip: 0.889 g/cm2 , T-score -0.9, Z-score 0.2 Left Femoral Neck: 0.767 g/cm2 , T-score -2.0, Z-score -0.5 Left Total Hip: 0.897 g/cm2 , T-score -0.9 , Z-score 0.3 No comparison data - the patient has not had a previous bone density in the [facility] or the previous bone density was performed on a different DXA machine (new, updated model or different location) within the [facility]. VERTEBRAL FRACTURE ASSESSMENT Not performed. TRABECULAR BONE ASSESSMENT TBS score: 1.336 Bone micro-architecture: : normal (> 1.310) IMPRESSION: THE LOWEST T-SCORE IS -2.0 IN THE LEFT HIP 1) DIAGNOSIS (based on BMD alone): OSTEOPENIA Caution: Medical conditions other than osteoporosis may cause low bone density, such as osteomalacia or renal osteodystrophy. Clinical correlation is necessary. 2) FRACTURE RISK (Based on TBS adjusted FRAX): 10-year absolute fracture risk: - major osteoporotic fracture =10.9 % % - hip fracture = 1.9 % % - A diagnosis of Osteoporosis, a 10 year probability of hip fracture greater than or equal to 3% or a 10 year probability of any major osteoporosis-related fracture greater than or equal to 20% should be considered for treatment. - DXA scanner generated FRAX calculations may slightly differ from online FRAX calculations due to differences in software versions. - All recommendations and calculations are to be considered as guidelines and should not replace sound clinical judgement - Caution: Fracture risk may be increased independent of BMD in patients with corticosteroid use, age greater than 65 years, or a history of prior fragility fracture. RECOMMENDATIONS: Follow-up in 2 years or as clinically indicated. Patients that are taking corticosteroids, are transplant recipients or have hyperparathyroidism should have annual follow-up. Follow-up scans should always be done on the same machine for accurate comparison. FOR MORE INFORMATION ABOUT DIAGNOSIS AND TREATMENT: [facility] Center for Osteoporosis and Metabolic Bone Disease:? www.ccf.org/arthritis/ osteo National Osteoporosis Foundation:? www.nof.org International Society of Clinical Densitometry www.iscd.org Identification Clerk: JOANNE Transcribe Date/Time: Mar 22 2025 8:43A Dictated by : ELVI HOOVER, DO This examination was interpreted and the report reviewed and electronically signed by: ELVI HOOVER DO on Mar 22 2025 8:44AM EST [id number] -2.0 Normal [facility] DXA Femur [T-score] Mitchell martin 03-22-2025 * * *Final Report* * * DATE OF EXAM: Mar 22 2025 8:31AM REJI Burdick - BD DXA TRABECLR BONE SCORE (TBS) / PROCEDURE REASON: E28.319-Premature menopause * * * * Physician Interpretation * * * * EXAMINATION: DXA BONE DENSITOMETRY BD DXA - AXIAL SKELETON, BD DXA TRABECLR BONE SCORE (TBS) PATIENT DEMOGRAPHICS: Age: 69 years, Gender: Female SCANNER INFORMATION: DXA Model: [employer]+[id number] Date Scanned: 03/22/2025 8:31 AM CLINICAL HISTORY: DIAGNOSTIC Premature menopause . RISK FACTORS FOR OSTEOPOROSIS AND ASSOCIATED FRACTURES REPORTED BY THIS PATIENT: Please refer to Bone Health Questionnaire in the EMR CURRENT THERAPY: Please refer to Bone Health Questionnaire in the EMR TECHNICAL LIMITATIONS: Degenerative disease of the spine RESULTS: Lumbar Spine (L1, L2, L3, L4): Total BMD: 1.060 g/cm2, T-score: -1.0 , Z-score: 0.3 Right Femoral Neck: 0.789 g/cm2 , T-score -1.8, Z-score -0.4 Right Total Hip: 0.889 g/cm2 , T-score -0.9, Z-score 0.2 Left Femoral Neck: 0.767 g/cm2 , T-score -2.0, Z-score -0.5 Left Total Hip: 0.897 g/cm2 , T-score -0.9 , Z-score 0.3 No comparison data - the patient has not had a previous bone density in the [facility] or the previous bone density was performed on a different DXA machine (new, updated model or different location) within the [facility]. VERTEBRAL FRACTURE ASSESSMENT Not performed. TRABECULAR BONE ASSESSMENT TBS score: 1.336 Bone micro-architecture: : normal (> 1.310) [facility] Provider, Tina Stoner - 03/22/2025 * * *Final Report* * * DATE OF EXAM: Mar 22 2025 8:31AM REJI Burdick - BD DXA TRABECLR BONE SCORE (TBS) / PROCEDURE REASON: E28.319-Premature menopause * * * * Physician Interpretation * * * * EXAMINATION: DXA BONE DENSITOMETRY BD DXA - AXIAL SKELETON, BD DXA TRABECLR BONE SCORE (TBS) PATIENT DEMOGRAPHICS: Age: 69 years, Gender: Female SCANNER INFORMATION: DXA Model: [employer]+[id number] Date Scanned: 03/22/2025 8:31 AM CLINICAL HISTORY: DIAGNOSTIC Premature menopause . RISK FACTORS FOR OSTEOPOROSIS AND ASSOCIATED FRACTURES REPORTED BY THIS PATIENT: Please refer to Bone Health Questionnaire in the EMR CURRENT THERAPY: Please refer to Bone Health Questionnaire in the EMR TECHNICAL LIMITATIONS: Degenerative disease of the spine RESULTS: Lumbar Spine (L1, L2, L3, L4): Total BMD: 1.060 g/cm2, T-score: -1.0 , Z-score: 0.3 Right Femoral Neck: 0.789 g/cm2 , T-score -1.8, Z-score -0.4 Right Total Hip: 0.889 g/cm2 , T-score -0.9, Z-score 0.2 Left Femoral Neck: 0.767 g/cm2 , T-score -2.0, Z-score -0.5 Left Total Hip: 0.897 g/cm2 , T-score -0.9 , Z-score 0.3 No comparison data - the patient has not had a previous bone density in the [facility] or the previous bone density was performed on a different DXA machine (new, updated model or different location) within the [facility]. VERTEBRAL FRACTURE ASSESSMENT Not performed. TRABECULAR BONE ASSESSMENT TBS score: 1.336 Bone micro-architecture: : normal (> 1.310) IMPRESSION IMPRESSION: THE LOWEST T-SCORE IS -2.0 IN THE LEFT HIP 1) DIAGNOSIS (based on BMD alone): OSTEOPENIA Caution: Medical conditions other than osteoporosis may cause low bone density, such as osteomalacia or renal osteodystrophy. Clinical correlation is necessary. 2) FRACTURE RISK (Based on TBS adjusted FRAX): 10-year absolute fracture risk: - major osteoporotic fracture =10.9 % % - hip fracture = 1.9 % % - A diagnosis of Osteoporosis, a 10 year probability of hip fracture greater than or equal to 3% or a 10 year probability of any major osteoporosis-related fracture greater than or equal to 20% should be considered for treatment. - DXA scanner generated FRAX calculations may slightly differ from online FRAX calculations due to differences in software versions. - All recommendations and calculations are to be considered as guidelines and should not replace sound clinical judgement - Caution: Fracture risk may be increased independent of BMD in patients with corticosteroid use, age greater than 65 years, or a history of prior fragility fracture. RECOMMENDATIONS: Follow-up in 2 years or as clinically indicated. Patients that are taking corticosteroids, are transplant recipients or have hyperparathyroidism should have annual follow-up. Follow-up scans should always be done on the same machine for accurate comparison. FOR MORE INFORMATION ABOUT DIAGNOSIS AND TREATMENT: [facility] Center for Osteoporosis and Metabolic Bone Disease:? www.ccf.org/arthritis/ osteo National Osteoporosis Foundation:? www.nof.org International Society of Clinical Densitometry www.iscd.org Identification Clerk: JOANNE Transcribe Date/Time: Mar 22 2025 8:43A Dictated by : ELVI HOOVER DO This examination was interpreted and the report reviewed and electronically signed by: ELVI HOOVER DO on Mar 22 2025 8:44AM EST [facility] DXA Skeletal system.axial Vi ews for bone densityon 03-22-2025 * * *Final Report* * * DATE OF EXAM: Mar 22 2025 8:31AM REJI 0804 - BD DXA - AXIAL SKELETON / PROCEDURE REASON: E28.319-Premature menopause * * * * Physician Interpretation * * * * EXAMINATION: DXA BONE DENSITOMETRY BD DXA - AXIAL SKELETON, BD DXA TRABECLR BONE SCORE (TBS) PATIENT DEMOGRAPHICS: Age: 69 years, Gender: Female SCANNER INFORMATION: DXA Model: [employer] [id number] Date Scanned: 03/22/2025 8:31 AM CLINICAL HISTORY: DIAGNOSTIC Premature menopause . RISK FACTORS FOR OSTEOPOROSIS AND ASSOCIATED FRACTURES REPORTED BY THIS PATIENT: Please refer to Bone Health Questionnaire in the EMR CURRENT THERAPY: Please refer to Bone Health Questionnaire in the EMR TECHNICAL LIMITATIONS: Degenerative disease of the spine RESULTS: Lumbar Spine (L1, L2, L3, L4): Total BMD: 1.060 g/cm2, T-score: -1.0 , Z-score: 0.3 Right Femoral Neck: 0.789 g/cm2 , T-score -1.8, Z-score -0.4 Right Total Hip: 0.889 g/cm2 , T-score -0.9, Z-score 0.2 Left Femoral Neck: 0.767 g/cm2 , T-score -2.0, Z-score -0.5 Left Total Hip: 0.897 g/cm2 , T-score -0.9 , Z-score 0.3 No comparison data - the patient has not had a previous bone density in the [facility] or the previous bone density was performed on a different DXA machine (new, updated model or different location) within the [facility]. VERTEBRAL FRACTURE ASSESSMENT Not performed. TRABECULAR BONE ASSESSMENT TBS score: 1.336 Bone micro-architecture: : normal (> 1.310) [facility] Provider, Tina Simental [place] - 03/22/2025 * * *Final Report* * * DATE OF EXAM: Mar 22 2025 8:31AM REJI 0804 - BD DXA - AXIAL SKELETON / PROCEDURE REASON: E28.319-Premature menopause * * * * Physician Interpretation * * * * EXAMINATION: DXA BONE DENSITOMETRY BD DXA - AXIAL SKELETON, BD DXA TRABECLR BONE SCORE (TBS) PATIENT DEMOGRAPHICS: Age: 69 years, Gender: Female SCANNER INFORMATION: DXA Model: [employer] [id number] Date Scanned: 03/22/2025 8:31 AM CLINICAL HISTORY: DIAGNOSTIC Premature menopause . RISK FACTORS FOR OSTEOPOROSIS AND ASSOCIATED FRACTURES REPORTED BY THIS PATIENT: Please refer to Bone Health Questionnaire in the EMR CURRENT THERAPY: Please refer to Bone Health Questionnaire in the EMR TECHNICAL LIMITATIONS: Degenerative disease of the spine RESULTS: Lumbar Spine (L1, L2, L3, L4): Total BMD: 1.060 g/cm2, T-score: -1.0 , Z-score: 0.3 Right Femoral Neck: 0.789 g/cm2 , T-score -1.8, Z-score -0.4 Right Total Hip: 0.889 g/cm2 , T-score -0.9, Z-score 0.2 Left Femoral Neck: 0.767 g/cm2 , T-score -2.0, Z-score -0.5 Left Total Hip: 0.897 g/cm2 , T-score -0.9 , Z-score 0.3 No comparison data - the patient has not had a previous bone density in the [facility] or the previous bone density was performed on a different DXA machine (new, updated model or different location) within the [facility]. VERTEBRAL FRACTURE ASSESSMENT Not performed. TRABECULAR BONE ASSESSMENT TBS score: 1.336 Bone micro-architecture: : normal (> 1.310) IMPRESSION IMPRESSION: THE LOWEST T-SCORE IS -2.0 IN THE LEFT HIP 1) DIAGNOSIS (based on BMD alone): OSTEOPENIA Caution: Medical conditions other than osteoporosis may cause low bone density, such as osteomalacia or renal osteodystrophy. Clinical correlation is necessary. 2) FRACTURE RISK (Based on TBS adjusted FRAX): 10-year absolute fracture risk: - major osteoporotic fracture =10.9 % % - hip fracture = 1.9 % % - A diagnosis of Osteoporosis, a 10 year probability of hip fracture greater than or equal to 3% or a 10 year probability of any major osteoporosis-related fracture greater than or equal to 20% should be considered for treatment. - DXA scanner generated FRAX calculations may slightly differ from online FRAX calculations due to differences in software versions. - All recommendations and calculations are to be considered as guidelines and should not replace sound clinical judgement - Caution: Fracture risk may be increased independent of BMD in patients with corticosteroid use, age greater than 65 years, or a history of prior fragility fracture. RECOMMENDATIONS: Follow-up in 2 years or as clinically indicated. Patients that are taking corticosteroids, are transplant recipients or have hyperparathyroidism should have annual follow-up. Follow-up scans should always be done on the same machine for accurate comparison. FOR MORE INFORMATION ABOUT DIAGNOSIS AND TREATMENT: [facility] Center for Osteoporosis and Metabolic Bone Disease:? www.ccf.org/arthritis/ osteo National Osteoporosis Foundation:? www.nof.org International Society of Clinical Densitometry www.iscd.org Identification Clerk: JOANNE Transcribe Date/Time: Mar 22 2025 8:43A Dictated by : ELVI HOOVER DO This examination was interpreted and the report reviewed and electronically signed by: ELVI HOOVER DO on Mar 22 2025 8:44AM [place] No Panel InformationOrdered By: Cc Provider on 03-22-2025 LOWEST T-SCORE -2.0 [place] [facility] No Panel Informationon 03-22 IMPRESSION: THE LOWEST T-SCORE IS -2.0 IN THE LEFT HIP 1) DIAGNOSIS (based on BMD alone): OSTEOPENIA Caution: Medical conditions other than osteoporosis may cause low bone density, such as osteomalacia or renal osteodystrophy. Clinical correlation is necessary. 2) FRACTURE RISK (Based on TBS adjusted FRAX): 10-year absolute fracture risk: - major osteoporotic fracture =10.9 % % - hip fracture = 1.9 % % - A diagnosis of Osteoporosis, a 10 year probability of hip fracture greater than or equal to 3% or a 10 year probability of any major osteoporosis-related fracture greater than or equal to 20% should be considered for treatment. - DXA scanner generated FRAX calculations may slightly differ from online FRAX calculations due to differences in software versions. - All recommendations and calculations are to be considered as guidelines and should not replace sound clinical judgement - Caution: Fracture risk may be increased independent of BMD in patients with corticosteroid use, age greater than 65 years, or a history of prior fragility fracture. RECOMMENDATIONS: Follow-up in 2 years or as clinically indicated. Patients that are taking corticosteroids, are transplant recipients or have hyperparathyroidism should have annual follow-up. Follow-up scans should always be done on the same machine for accurate comparison. FOR MORE INFORMATION ABOUT DIAGNOSIS AND TREATMENT: [facility] for Osteoporosis and Metabolic Bone Disease:? [email or web address].org/arthritis/ osteo National Osteoporosis Foundation:? www.nof.org International Society of Clinical Densitometry www.iscd.org Identification Clerk: JOANNE Transcribe Date/Time: Mar 22 2025 8:43A Dictated by : ELVI HOOVER DO This examination was interpreted and the report reviewed and electronically signed by: ELVI HOOVER DO on Mar 22 2025 8:44AM [facility] Radiology Study observation (narrative) [facility] 03-10-2025 36 Left detailed messag e that Dr Tomlinson is going out on medical leave and we have no idea when he will be returning. Then he is also retiring in September of 2025. This might be a good time to look for a new provider since we have no one coming into our office to replace him. Normal [facility] 03-09-2025 36 Name of Caller: Devin Contact Reason for Appointment: Devin called asking who would now be doing her annual wellness with Dr Tomlinson out of the office. Please advise Office Name: [facility] Medication Refills need, if any: n/a Medication Name: n/a [facility] 36on 03-08-2025 36 Recent Visits Date Type Provider Dept 04/16/24 Office Visit Mauro Tomlinson DO [facility] Showing recent visits within past 365 days and meeting all other requirements Future Appointments Date Type Provider Dept 03/16/25 Appointment Mauro Tomlinson DO [facility] Showing future appointments within next 90 days and meeting all other requirements Requested Prescriptions Pending Prescriptions Disp Refills losartan (Cozaar) 25 MG tablet [Pharmacy Med Name: losartan 25 mg tablet] 90 tablet 3 Sig: Take 1 tablet (25 mg) by mouth daily. \ Provider: Mauro Tomlinson DO Verified pharmacy: yes Verified day(s) supplied: yes Verified refill(s) needed (previous prescription showing no refills in chart): Yes Have you received any controlled medications from any other provider? N/A Overdue for visit: N/A If yes - patient scheduled? N/A Most recent labs completed in chart? N/A None [facility] CNOVon 03-06-2025 CNOV Office Visit (NEUBSM ) DEVIN CHAPMAN ([id number]) 1955 F Date Time Provider Department 03/06/25 11:15 AM CCBS NI 1 ([facility]) NEUBSM During your visit today, we recorded the following information about you: Esteban Uribe PA-C 03/06/2025 11:32 AM Signed DATE: March 06, 2025 PT. NAME: Devin Chapman [facility]#: [id number] IRB [id number]. [facility] Brain Study (CCBS) Cuff Maker: Myra Moses MD, , Chapin Becker MD, Hack Driver: Shaina Costa and Email:[email or web address] Time: 1057 EKG/ECG was performed on patient. Patient tolerated procedure well. BP: 144/78 mmHg BP Site: left arm BP Position: sitting Cuff size: regular Pulse: 61 Resp: 12 SPO2: 96% Weight: 163 lb Height: 5ft 5in Have you received the Shingles Vaccine? Yes Age of first vaccination? 63 Year first vaccination was administered: 2018 Number of subsequent vaccinations: 0 Walk for 30 min in morning, floor core class Result of Physical Exam Body System Eyes: Normal ,blurry vision corrected with glasses Ears, Nose, Mouth and Throat: Abnormal ,finger rub not heard on right side Cardiovascular: Normal ,sinus bradycardia BPM 55 Respiratory: Normal Musculoskeletal: Normal Integumentary: Normal Handedness: Right hand Results of Mental Status Assessment Mental Assessments Attention: Abnormality Present: No Memory Working Memory: Abnormality Present: No Recent (Episodic) Memory: Abnormality Present: Yes ,1/3 spon; 2/3 with one clue Remote (Semantic) Memory: Abnormality Present: No Language Spontaneous Speech: Abnormality Present: No Comprehension: Abnormality Present: No Naming: Abnormality Present: No Repetition: Abnormality Present: No Reading: Abnormality Present: No Affect: Abnormality Present: No Craninal Nerve Assessment Visual Garcia: Normal EOM: Normal Nystagmus: Physiologic Pupils: Equal and reactive Ptosis: Absent Trigeminal: Normal CN VII: Normal CN VIII: Normal CN IX: Normal CN X: Normal CN XI: Normal CN XII: Normal Assessment of Motor and Bulk and Tones Motor Assessments Muscle bulk-global: Normal Muscle tone-global: Normal Motor Strength Assessment Shoulder flexion: Right 5 Left 5 Shoulder external rotation: Right 5 Left 5 Shoulder abduction: Right 5 Left 5 Shoulder adduction: Right 5 Left 5 Elbow flexion: Right 5 Left 5 Elbow extension: Right 5 Left 5 Wrist flexion: Right 5 Left 5 Wrist extension: Right 5 Left 5 Finger flexion/lock assembler: Right 5 Left 5 Flexor pollicis longus: Right 5 Left 5 Abductor pollicis brevis: Right 5 Left 5 Hip flexion: Right 5 Left 5 Hip extension: Right 5 Left 5 Hip abduction: Right 5 Left 5 Hip adduction: Right 5 Left 5 Knee flexion: Right 5 Left 5 Knee extension: Right 5 Left 5 Ankle eversion: Right 5 Left 5 Ankle inversion: Right 5 Left 5 Ankle plantar flexion: Right 5 Left 5 Ankle dorsiflexion: Right 5 Left 5 Extensor halluces longus: Right 5 Left 5 Flexor digitorum longus: Right 5 Left 5 Reflexes - MRC Grading Method Triceps: Right 1+ Left 1+ Biceps: Right 1+ Left 1+ Brachioradialis: Right 0 Left 0 Patellar: Right 2+ Left 2+ Achilles: Right 0 Left 0 Plantar: Right Downgoing Left Downgoing Weakness?: No Tremor: No Cerebellar/Coordinatio n Assessment [id number]-gr-Dznz: Abnormality present: No, Ddpn-at-Twwu: Abnormality present: No, Finger Tapping - Abnormality present: No Fist Open/Close - Abnormality present: No Pronation/Supination of the Hand - Abnormality present: No Toe Tapping - Abnormality present: No Heel Tapping - Abnormality present: No Gait Gait-global assessment: Normal Toe Walk: Normal Heel Walk: Normal Tandem Walk: Abnormal (mild difficulty- lost balance once) Romberg: Negative (pass) Sensory/Sensation Sensory System-globlal assessment: Normal Esteban Uribe PA-C Referring Provider: SELF [200] Allergies As of Date: 03/06/2025 Noted Allergy Reaction LISINOPRIL 01/19/2024 3 - Cough Date Reviewed: 01/19/2025 Reviewed by: Negra Caballero MA - Fully Assessed Primary Visit Diagnosis:Examination of participant in clinical trial [Z00.6] Prescriptions as of 03/06/2025 - levothyroxine (SYNTHROID) 75 mcg tablet TAKE 1 TABLET 6 (SIX) days a WEEK, NOT on Friday. - alendronate (FOSAMAX) 70 mg tablet Take 1 tablet by mouth one time a week. In AM with cup of water on empty stomach. Nothing else by mouth and stay upright for 30 min. - rosuvastatin (CRESTOR) 10 mg tablet Take 1 tablet by mouth once daily. - cetirizine (ZYRTEC) 10 mg tablet Take 10 mg by mouth once daily. - losartan (COZAAR) 25 mg tablet Take 25 mg by mouth once daily. - Fluorouracil 5 % cream Apply to affected area two times a day. (more content not included)... Normal [facility] Lipid 1996 panelon 08-06-202 5 Cholesterol [Mass/Vol] 155 mg/dL Normal <200 [facility] Comment on above: Order Comment: Yeimi trevor Type: BLOOD SPECIMEN Ordering Facility: [facility] Address: [address] [place] [address] Result Comment: <200 mg/dL, Desirable 200-239 mg/dL, Borderline high >239 mg/dL, High Performed By: #### 2 4331-1 #### [facility] CLIA [id number] [address] Cholesterol in HDL [Mass/Vol] 60 mg/dL Normal >39 [facility] Comment on above: Order Comment: Yeimi trevor Type: BLOOD SPECIMEN Ordering Facility: [facility] Address: [address] [place] [address] Result Comment: 40-5 9 mg/dL, Acceptable >59 mg/dL, High: Negative risk factor for coronary heart disease <40 mg/dL, Low: Positive risk factor for coronary heart disease Performed By: #### 2 4331-1 #### [facility] CLIA [id number] [address] Cholesterol in LDL [Mass/Vol] 78 mg/dL Normal <100 [facility] Comment on above: Order Comment: Yeimi trevor Type: BLOOD SPECIMEN Ordering Facility: [facility] Address: [address] [place] [address] Result Comment: <100 mg/dL, Optimal 100-129 mg/dL, Near optimal/above optimal 130-159 mg/dL, Borderline high 160-189 mg/dL, High >189 mg/dL, Very high Secondary prevention optimal LDL Cholesterol levels are recommended to be <70 mg/dL LDL cholesterol is calculated using the Barry-NIH equation. Performed By: #### 2 4331-1 #### [facility] CLIA [id number] [address] Cholesterol in LDL/Cholesterol in HDL [Mass ratio] 1.30 {ratio} Normal <2.54 [facility] Comment on above: Order Comment: Yeimi trevor Type: BLOOD SPECIMEN Ordering Facility: [facility] Address: [address] [place] [address] Result Comment: Kiki pizano: 1. National Cholesterol Education Program ATP III Guideline At-A-Glance Quick Desk Reference: National Heart, Lung, and Blood [place]. National Institutes of Health. 2001: NIH Publication No. 01-3305. 2. An International Atherosclerosis Society position paper: global recommendations for the management of dyslipidemia: executive summary, Atherosclerosis. 2014: 232(2):410-413. Performed By: #### 2 4331-1 #### [facility] CLIA [id number] [address] Cholesterol in VLDL [Mass/Vol] 14 mg/dL Normal <30 [facility] Comment on above: Order Comment: Yeimi trevor Type: BLOOD SPECIMEN Ordering Facility: [facility] Address: [address] [place] [address] Performed By: #### 2 4331-1 #### [facility] CLIA [id number] [address] Cholesterol non HDL [Mass/Vol] 95 mg/dL Normal <130 [facility] Comment on above: Order Comment: Yeimi murray Type: BLOOD SPECIMEN Ordering Facility: [facility] Address: [address] [place] [address] Result Comment: <130 mg/dL, Optimal 130-159 mg/dL, Near optimal/above optimal 160-189 mg/dL, Borderline high 190-219 mg/dL, High >219 mg/dL, Very high Secondary prevention optimal non HDL Cholesterol levels are recommended to be <100 mg/dL Performed By: #### 2 4331-1 #### [facility] CLIA [id number] [address] Cholesterol.total/Cho lesterol in HDL [Mass ratio] 2.58 {ratio} Normal <5.10 [facility] Comment on above: Order Comment: Yeimi murray Type: BLOOD SPECIMEN Ordering Facility: [facility] Address: [address] [place] [address] Performed By: #### 2 4331-1 #### [facility] CLIA [id number] [address] FASTING TIME 12 hrs Normal [facility] Comment on above: Order Comment: Yeimi trevor Type: BLOOD SPECIMEN Ordering Facility: [facility] Address: [address] [id number] Performed By: #### 2 4331-1 #### [facility] CLIA [id number] [address] [place] [address] [place] Triglyceride [Mass/Vol] 90 mg/dL Normal <150 [facility] Comment on above: Order Comment: Speci men Type: BLOOD SPECIMEN Ordering Facility: [facility] Address: [address] [place] [address] Result Comment: <150 mg/dL, Normal 150-199 mg/dL, Borderline high 200-499 mg/dL, High >499 mg/dL, Very high Performed By: #### 2 4331-1 #### [facility] CLIA [id number] [address] [place] CNOVon 01-19-2025 CNOV Office Visit (ENDMED ) DEVIN CHAPMAN ([id number]) 1955 F Date Time Provider Department 01/19/25 8:20 AM RYAN BARBOSA During your visit today, we recorded the following information about you: Pulse Blood pressure Weight Height 73/minute 144/85 74.3 kg 1.642 m Ryan Barbosa MD 01/19/2025 8:54 AM Signed Follow-up 69 year-old retired female, patient of Dr. Mauro Tomlinson, with primary hypothyroidism, osteopenia, and hypertension. Takes levothyroxine six days a week. She has past history of primary hyperparathyroidism, s/p right superior parathyroidectomy in 05/30, medullary sponge kidney with history of nephrocalcinosis and nephrolithiasis. Medication list reviewed, reconciled. Patient reports feeling well. No height loss or fragility fractures noted this year. No history of hypertension. No neck swelling, dysphagia. Has family history of osteoporosis. Maximal adult height is 65. Had COVID vaccination and flu shot. No longer on lisinopril (cough). Started alendronate in 06/2022. She deferred starting statin in 12/2023. Current Outpatient Medications on File Prior to Visit Medication Sig cetirizine (ZYRTEC) 10 mg tablet Take 10 mg by mouth once daily. losartan (COZAAR) 25 mg tablet Take 25 mg by mouth once daily. Fluorouracil 5 % cream Apply to affected area two times a day. alendronate (FOSAMAX) 70 mg tablet TAKE 1 TABLET BY MOUTH ONCE A WEEK IN THE MORNING WITH CUP OF WATER ON AN EMPTY STOMACH. NOTHING ELSE BY MOUTH AND STAY UPRIGHT FOR 30 MINUTES levothyroxine (SYNTHROID) 75 mcg tablet Take one pill daily, no pill on Sundays. cholecalciferol (VITAMIN D-3) 5,000 unit tab Take 1 tablet by mouth once daily. Review of patient's allergies indicates: No Known Allergies Answers submitted by the patient for this visit: Core Review of Systems (Submitted on 01/17/2025) Fever : No Night sweats: No Recent unintentional weight change: No Nasal Congestion: Yes Hearing Loss: Yes Vision Disturbance: No A cough: No Difficulty Breathing?: No Chest pain: No Irregular heartbeat: No Leg Swelling: No Nausea: No Diarrhea: No Black tarry stools: No Difficulty Urinating?: No Awaken at Night More Than Once to Urinate?: No Joint pain or stiffness: Yes Muscle aches: No Leg or Foot Discomfort at Night?: Yes A rash: No Dizziness: No Headaches: No Memory Loss: No Seizures: No BP 148/85 Pulse 73 Wt 74.3 kg (163 lb 12.8 oz) SpO2 98% BMI 27.79 kg/m? Weight up 2 pounds since 12/2023. Height stable. 5'4.37 General appearance: Well-appearing overweight (BMI > 25) female, alert, in no acute distress, well-hydrated, well nourished. BP elevated Repeat BP 144/85 Skin: Skin color, texture, turgor normal, no suspicious rashes or lesions Head: normocephalic, no masses, lesions, tenderness or abnormalities Eyes: Anicteric sclera. Pupils are equally round. Extraocular movements are intact. Ears: not examined Nose/Sinuses: Nares normal. No drainage or sinus tenderness. Oropharynx: Lips, mucosa, and tongue normal, teeth and gums not examined. Neck: Supple, no adenopathy; no palpable thyroid enlargement. Well-healed thyroidectomy incision. Lungs: Breathing unlabored. Heart: RRR. No ectopy Abdomen: deferred Extremities: No deformities, edema, skin discoloration, clubbing or cyanosis. Good capillary refill. Musculoskeletal: Spine range of motion not tested. Muscular strength intact, No joint swelling, deformity, or tenderness Neuro: Gait normal. Sensation grossly intact. DEXA bone densitometry in 06/2019 showed T-scores as follows: lumbar -0.8 (up 5%), hip -1.1 (up 5%), femoral neck -1.8 (unchanged). DEXA bone densitometry in 07/2021 showed T-scores as follows: lumbar -0.6, hip -1.3, femoral neck -2.0. FRAX 1.8/20.3 IMPRESSION: Osteopenia - continue bisphosphonate until 06/2027, check DEXA Hypothyroidism - check TSH, free T4 on the current levothyroxine dose Vitamin D deficiency - continue supplement Hyperlipidemia - defers statin, wants lipid panel re-check PLAN: Check TSH, free T4, lipid panel Will call with results Continue alendronate 70 mg once weekly Check bone density RTO in [address] French for regular health care needs Ryan Barbosa MD, FACP I spent a total of 30 minutes on the date of service which included preparing to see the patient, [id number] patient care, completing clinical documentation, performing a medically appropriate examination, counseling and educating the patient/family/caregiv er and ordering medications, tests, or procedures. Ryan Barbosa MD 01/19/2025 8:01 AM Addendum Schedule bone density Get labs done at [facility]. Will call with results. See me again in 12 months. BONE MINERAL DENSITY PATIENT INSTRUCTIONS Bone mi (more content not included)... Normal [facility] metabolic 2000 panelon 01-19-2025 Albumin [Mass/Vol] 4.2 g/dL 3.9 - 4.9 g/dL [facility] ALP [Catalytic activity/Vol] 56 U/L 34 - 123 U/L [facility] ALT [Catalytic activity/Vol] 20 U/L 7 - 38 U/L [facility] Anion gap [Moles/Vol] 11 mmol/L 8 - 15 mmol/L [facility] AST [Catalytic activity/Vol] 23 U/L 13 - 35 U/L [facility] Bilirubin [Mass/Vol] 0.7 mg/dL 0.2 - 1 .3 mg/dL [facility] Calcium [Mass/Vol] 8.7 mg/dL 8.5 - 10. 2 mg/dL [facility] Chloride [Moles/Vol] 104 mmol/L 98 - 10 7 mmol/L [facility] CO2 [Moles/Vol] 24 mmol/L 22 - 30 mmol/L [facility] Creatinine [Mass/Vol] 0.95 mg/dL 0.58 - 0.96 mg/dL [facility] GFR/1.73 sq M.predicted among non-blacks MDRD (S/P/Bld) [Vol rate/Area] 65 mL/min/{1.73_m2} - PINF [facility] Comment on above: Estimated Glomerular Filtration Rate (eGFR) is calculated using the 2020 CKD-EPI creatinine equation. This equation utilizes serum creatinine, sex, and age as parameters. The creatinine assay has traceable calibration to isotope dilution-mass spectrometry. Refer to KDIGO guidelines for clinical interpretation. In patients with unstable renal function, e.g. those with acute kidney injury, the eGFR may not accurately reflect actual GFR. Glucose [Mass/Vol] 99 mg/dL 74 - 99 mg/dL [facility] Comment on above: The [place] Diabete s Association (ADA) provides guidance for cutoff values for fasting glucose and random glucose. The ADA defines fasting as no caloric intake for at least 8 hours. Fasting plasma glucose results between 100 to 125 mg/dL indicate increased risk for diabetes (prediabetes). Fasting plasma glucose results greater than or equal to 126 mg/dL meet the criteria for diagnosis of diabetes. In the absence of unequivocal hyperglycemia, results should be confirmed by repeat testing. In a patient with classic symptoms of hyperglycemia or hyperglycemic crisis, random plasma glucose results greater than or equal to 200 mg/dL meet the criteria for diagnosis of diabetes. Reference: Standards of Medical Care in Diabetes 2016, [place] Diabetes Association. Diabetes Care. 2016.39(Suppl 1). Interpretation and review of laboratory results Normal [facility] Potassium [Moles/Vol] 4.1 mmol/L 3.7 - 5.1 mmol/L [facility] Protein [Mass/Vol] 7.2 g/dL 6.3 - 8.0 g/dL [facility] Sodium [Moles/Vol] 139 mmol/L 136 - 144 mmol/L [facility] Urea nitrogen [Mass/Vol] 18 mg/dL 7 - 21 mg/dL [facility] Albumin [Mass/Vol] 4.2 g/dL Normal 3.9-4.9 [facility] Comment on above: Order Comment: Speci men Type: BLOOD SPECIMEN Ordering Facility: [facility] Address: [address] [place] [address] Performed By: #### 3 016-3, 62011-3, 84178-9 #### [facility] CLIA [id number] [address] [place] [address] [place] ALP [Catalytic activity/Vol] 56 U/L Normal 34-123 [facility] Comment on above: Order Comment: Speci men Type: BLOOD SPECIMEN Ordering Facility: [facility] Address: [address] [place] [address] Performed By: #### 3 016-3, 55542-7, 31812-4 #### [facility] CLIA [id number] [address] [place] [address] [place] ALT [Catalytic activity/Vol] 20 U/L Normal 7-38 [facility] Comment on above: Order Comment: Speci men Type: BLOOD SPECIMEN Ordering Facility: [facility] Address: [address] [place] [address] Performed By: #### 3 016-3, 81935-9, 11207-8 #### [facility] CLIA [id number] [address] [place] [address] [place] Anion gap [Moles/Vol] 11 mmol/L Normal 8-15 [facility] Comment on above: Order Comment: Speci men Type: BLOOD SPECIMEN Ordering Facility: [facility] Address: [address] [place] [address] Performed By: #### 3 016-3, 17238-9, 27707-9 #### [facility] CLIA [id number] [address] [place] [address] [place] AST [Catalytic activity/Vol] 23 U/L Normal 13-35 [facility] Comment on above: Order Comment: Speci men Type: BLOOD SPECIMEN Ordering Facility: [facility] Address: [address] [place] [address] Performed By: #### 3 016-3, 10303-8, 10255-2 #### [facility] CLIA [id number] [address] [place] [address] [place] Bilirubin [Mass/Vol] 0.7 mg/dL Normal 0.2-1.3 [facility] Comment on above: Order Comment: Speci men Type: BLOOD SPECIMEN Ordering Facility: [facility] Address: [address] [place] [address] Performed By: #### 3 016-3, 23438-7, 54842-4 #### [facility] CLIA [id number] [address] [place] [address] [place] Calcium [Mass/Vol] 8.7 mg/dL Normal 8.5-10.2 [facility] Comment on above: Order Comment: Speci men Type: BLOOD SPECIMEN Ordering Facility: [facility] Address: [address] [place] [address] Performed By: #### 3 016-3, 82158-2, 56386-3 #### [facility] CLIA [id number] [address] [place] [address] [place] Chloride [Moles/Vol] 104 mmol/L Normal 98-107 [facility] Comment on above: Order Comment: Speci men Type: BLOOD SPECIMEN Ordering Facility: [facility] Address: [address] [place] [address] Performed By: #### 3 016-3, 96220-3, 29476-7 #### [facility] CLIA [id number] [address] [place] [address] [place] CO2 [Moles/Vol] 24 mmol/L Normal 22-30 [facility] Comment on above: Order Comment: Speci men Type: BLOOD SPECIMEN Ordering Facility: [facility] Address: [address] [place] [address] Performed By: #### 3 016-3, 14957-0, 44047-7 #### [facility] CLIA [id number] [address] [place] [address] [place] [facility] Creatinine [Mass/Vol] 0.95 mg/dL Normal 0.58-0.96 [facility] Comment on above: Order Comment: Yeimi murray Type: BLOOD SPECIMEN Ordering Facility: [facility] Address: [address] [place] [address] Performed By: #### 3 016-3, 24775-1, 45925-1 #### [facility] CLIA [id number] [address] Creatinine and Glomerular filtration rate.predicted panel (S/P/Bld) 65 mL/min/1.73m??? Normal >=60 [facility] Comment on above: Order Comment: Yeimi murray Type: BLOOD SPECIMEN Ordering Facility: [facility] Address: [address] [place] [address] Result Comment: Lorna mated Glomerular Filtration Rate (eGFR) is calculated using the 2020 CKD-EPI creatinine equation. This equation utilizes serum creatinine, sex, and age as parameters. The creatinine assay has traceable calibration to isotope dilution-mass spectrometry. Refer to KDIGO guidelines for clinical interpretation. In patients with unstable renal function, e.g. those with acute kidney injury, the eGFR may not accurately reflect actual GFR. Performed By: #### 3 016-3, 36972-9, 83491-4 #### [facility] CLIA [id number] [address] [place] Glucose [Mass/Vol] 99 mg/dL Normal 74-99 [facility] Comment on above: Order Comment: Yeimi men Type: BLOOD SPECIMEN Ordering Facility: [facility] Address: [address] [place] [address] Result Comment: The [place] Diabetes Association (ADA) provides guidance for cutoff values for fasting glucose and random glucose. The ADA defines fasting as no caloric intake for at least 8 hours. Fasting plasma glucose results between 100 to 125 mg/dL indicate increased risk for diabetes (prediabetes). Fasting plasma glucose results greater than or equal to 126 mg/dL meet the criteria for diagnosis of diabetes. In the absence of unequivocal hyperglycemia, results should be confirmed by repeat testing. In a patient with classic symptoms of hyperglycemia or hyperglycemic crisis, random plasma glucose results greater than or equal to 200 mg/dL meet the criteria for diagnosis of diabetes. Reference: Standards of Medical Care in Diabetes 2016, [place] Diabetes Association. Diabetes Care. 2016.39(Suppl 1). Performed By: #### 3 016-3, 96864-2, 69134-4 #### [facility] CLIA [id number] [address] [place] [address] [place] Potassium [Moles/Vol] 4.1 mmol/L Normal 3.7-5.1 [facility] Comment on above: Order Comment: Yeimi murray Type: BLOOD SPECIMEN Ordering Facility: [facility] Address: [address] [place] [address] Performed By: #### 3 016-3, 37989-7, 31701-8 #### [facility] CLIA [id number] [address] [place] [address] [place] Protein [Mass/Vol] 7.2 g/dL Normal 6.3-8.0 [facility] Comment on above: Order Comment: Yeimi murray Type: BLOOD SPECIMEN Ordering Facility: [facility] Address: [address] [place] [address] Performed By: #### 3 016-3, 12510-9, 49499-6 #### [facility] CLIA [id number] [address] [place] Sodium [Moles/Vol] 139 mmol/L Normal 136-144 [facility] Comment on above: Order Comment: Yeimi murray Type: BLOOD SPECIMEN Ordering Facility: [facility] Address: [address] [place] [address] Performed By: #### 3 016-3, 47125-7, 18190-3 #### [facility] CLIA [id number] [address] [place] Urea nitrogen [Mass/Vol] 18 mg/dL Normal 7-21 [facility] Comment on above: Order Comment: Yeimi murray Type: BLOOD SPECIMEN Ordering Facility: [facility] Address: [address] [place] [address] Performed By: #### 3 016-3, 32541-3, 37076-0 #### [facility] CLIA [id number] [address] [place] [address] [place] Lipid 1996 panelon 5 Cholesterol [Mass/Vol] 233 mg/dL High NINF - 200 mg/dL [facility] Comment on above: <200 mg/dL, Desirabl e 200-239 mg/dL, Borderline high >239 mg/dL, High Cholesterol in HDL [Mass/Vol] 60 mg/dL 39 - PINF mg/dL [facility] Comment on above: 40-59 mg/dL, Accepta ble >59 mg/dL, High: Negative risk factor for coronary heart disease <40 mg/dL, Low: Positive risk factor for coronary heart disease Cholesterol in LDL [Mass/Vol] 153 mg/dL High NINF - 100 mg/dL [facility] Comment on above: <100 mg/dL, Optimal 100-129 mg/dL, Near optimal/above optimal 130-159 mg/dL, Borderline high 160-189 mg/dL, High >189 mg/dL, Very high Secondary prevention optimal LDL Cholesterol levels are recommended to be <70 mg/dL LDL cholesterol is calculated using the Barry-NIH equation. Cholesterol in LDL/Cholesterol in HDL [Mass ratio] 2.55 {ratio} High NINF - 2.54 [facility] Comment on above: Reference: 1. National Cholesterol Education Program ATP III Guideline At-A-Glance Quick Desk Reference: National Heart, Lung, and Blood [place]. National Institutes of Health. 2001: NIH Publication No. 01-3305. 2. An International Atherosclerosis Society position paper: global recommendations for the management of dyslipidemia: executive summary, Atherosclerosis. 2014: 232(2):410-413. Cholesterol in VLDL [Mass/Vol] 21 mg/dL NINF - 30 mg/dL [facility] Cholesterol non HDL [Mass/Vol] 173 mg/dL High NINF - 130 mg/dL [facility] Comment on above: <130 mg/dL, Optimal 130-159 mg/dL, Near optimal/above optimal 160-189 mg/dL, Borderline high 190-219 mg/dL, High >219 mg/dL, Very high Secondary prevention optimal non HDL Cholesterol levels are recommended to be <100 mg/dL Cholesterol.total/Cho lesterol in HDL [Mass ratio] 3.88 {ratio} NINF - 5.10 [facility] Fasting Time 14 hrs [facility] Interpretation and review of laboratory results Abnormal [facility] Triglyceride [Mass/Vol] 115 mg/dL NINF - 150 mg/dL [facility] Comment on above: <150 mg/dL, Normal 150-199 mg/dL, Borderline high 200-499 mg/dL, High >499 mg/dL, Very high Cholesterol [Mass/Vol] 233 mg/dL High <200 [facility] Comment on above: Order Comment: Yeimi murray Type: BLOOD SPECIMEN Ordering Facility: [facility] Address: [address] [place] [address] Result Comment: <200 mg/dL, Desirable 200-239 mg/dL, Borderline high >239 mg/dL, High Performed By: #### 3 016-3, 99124-2, 20610-4 #### [facility] CLIA [id number] [address] Cholesterol in HDL [Mass/Vol] 60 mg/dL Normal >39 [facility] Comment on above: Order Comment: Yeimi murray Type: BLOOD SPECIMEN Ordering Facility: [facility] Address: [address] [place] [address] Result Comment: 40-5 9 mg/dL, Acceptable >59 mg/dL, High: Negative risk factor for coronary heart disease <40 mg/dL, Low: Positive risk factor for coronary heart disease Performed By: #### 3 016-3, 99258-7, 39119-9 #### [facility] CLIA [id number] [address] Cholesterol in LDL [Mass/Vol] 153 mg/dL High <100 [facility] Comment on above: Order Comment: Yeimi [facility] Type: BLOOD SPECIMEN Ordering Facility: [facility] Address: [address] [place] [address] Result Comment: <100 mg/dL, Optimal 100-129 mg/dL, Near optimal/above optimal 130-159 mg/dL, Borderline high 160-189 mg/dL, High >189 mg/dL, Very high Secondary prevention optimal LDL Cholesterol levels are recommended to be <70 mg/dL LDL cholesterol is calculated using the Barry-NIH equation. Performed By: #### 3 016-3, 41364-5, 97320-3 #### [facility] CLIA [id number] [address] Cholesterol in LDL/Cholesterol in HDL [Mass ratio] 2.55 {ratio} High <2.54 [facility] Comment on above: Order Comment: Speci men Type: BLOOD SPECIMEN Ordering Facility: [facility] Address: [address] [place] [address] Result Comment: Kiki pizano: 1. National Cholesterol Education Program ATP III Guideline At-A-Glance Quick Desk Reference: National Heart, Lung, and Blood [place]. National Institutes of Health. 2001: NIH Publication No. 01-3305. 2. An International Atherosclerosis Society position paper: global recommendations for the management of dyslipidemia: executive summary, Atherosclerosis. 2014: 232(2):410-413. Performed By: #### 3 016-3, 89764-8, #### [facility] CLIA [id number] [address] Cholesterol in VLDL [Mass/Vol] 21 mg/dL Normal <30 [facility] Comment on above: Order Comment: Chynai men Type: BLOOD SPECIMEN Ordering Facility: [facility] Address: [address] [place] [address] Performed By: #### 3 016-3, 50457-8, #### [facility] CLIA [id number] [address] Cholesterol non HDL [Mass/Vol] 173 mg/dL High <130 [facility] Comment on above: Order Comment: Speci men Type: BLOOD SPECIMEN Ordering Facility: [facility] Address: [address] [place] [address] Result Comment: <130 mg/dL, Optimal 130-159 mg/dL, Near optimal/above optimal 160-189 mg/dL, Borderline high 190-219 mg/dL, High >219 mg/dL, Very high Secondary prevention optimal non HDL Cholesterol levels are recommended to be <100 mg/dL Performed By: #### 3 016-3, 47684-8, 03249-6 #### [facility] CLIA [id number] [address] Cholesterol.total/Cho lesterol in HDL [Mass ratio] 3.88 {ratio} Normal <5.10 [facility] Comment on above: Order Comment: Speci men Type: BLOOD SPECIMEN Ordering Facility: [facility] Address: [address] [place] [address] Performed By: #### 3 016-3, 34579-5, 40592-8 #### [facility] CLIA [id number] [address] FASTING TIME 14 hrs Normal [facility] Comment on above: Order Comment: Speci men Type: BLOOD SPECIMEN Ordering Facility: [facility] Address: [address] [place] [address] Performed By: #### 3 016-3, 52318-8, 72856-1 #### [facility] CLIA [id number] [address] Triglyceride [Mass/Vol] 115 mg/dL Normal <150 [facility] Comment on above: Order Comment: Speci men Type: BLOOD SPECIMEN Ordering Facility: [facility] Address: [address] [place] [address] Result Comment: <150 mg/dL, Normal 150-199 mg/dL, Borderline high 200-499 mg/dL, High >499 mg/dL, Very high Performed By: #### 3 016-3, 98093-1, 58790-4 #### [facility] CLIA [id number] [address] OF [facility] No Panel Informationon 01-19 [facility] T4 Free SerPl-mCncon 025 Free T4 [Mass/Vol] 1.3 ng/dL Normal 0.9-1.7 [facility] Comment on above: Order Comment: Speci men Type: BLOOD SPECIMEN Ordering Facility: [facility] Address: [address] [place] [address] Performed By: #### 3 024-7 #### [facility] CLIA [id number] [address] [place] [address] [place] THYROID STIMULATING HORMONEo n 01-19-2025 TSH Qn 1.52 m[IU]/L [facility] TSH Qnon 01-19-2025 Interpretation and review of laboratory results Normal [facility] TSH SerPl-aCncon 01-19-2025 TSH Qn 1.520 m[IU]/L Normal 0.270-4.200 [facility] Comment on above: Order Comment: Speci men Type: BLOOD SPECIMEN Ordering Facility: [facility] Address: [facility] [place] [address] Performed By: #### 3 016-3, 84765-3, 18673-4 #### [facility] CLIA [id number] [address] [place] [address] [facility] Office Visiton 11-30-2024 Follow-up visit [id number] Devin Chapman 1955 F Date Provider Department Center 11/30/2024 [id number] LAU [facility] OB Offi Family History Problem Relation Age of Onset Dementia Mother 85 Comments: age 91 High Blood Pressure Mother Depression Father Comments: in 90s No Known Problems Sister No Known Problems Sister No Known Problems Brother Sleep apnea Brother Sleep apnea Brother No Known Problems Maternal Grandmother Comments: age 99 Alcohol abuse Maternal Grandfather Comments: in 60 No Known Problems Paternal Grandmother Comments: in 90s No Known Problems Paternal Grandfather Ovarian cancer Neg Hx Colon cancer Neg Hx Breast cancer Neg Hx Uterine cancer Neg Hx Family Status - Relation Status Age at Mother Father Sister Alive Sister Alive Brother Alive Brother Alive Brother Alive Maternal Grandmother Maternal Grandfather Paternal Grandmother Paternal Grandfather Neg Hx Level of Service:45928 [place] PERIODIC PREVENTIVE MED EST PATIENT 66YRS& OLDER Reason for Visit and Comments: Annual Exam [83] - Annual exam Normal [facility] Progress Noteon 11-30-2024 Progress Note Devin Chapman 11/30/2024 69 y.o. Chief Complaint Patient presents with Annual Exam Annual exam No LMP recorded. Patient is postmenopausal. Primary Care Physician: Mauro Tomlinson, The patient was seen and examined. She is here for her annual exam. Pap neg/neg 2021. Mg 05/20 wnl. Colonoscopy due 2027 polyps. dexa 2021 osteopenia. Fosamax through primary. Breast density c mri discussed. Will hold off for now. Elev bp asymptomatic Took meds Will fu with primary Poss fam ho skin cancer HPI : Devin Chapman is a 69 y.o. female OB History Para Term AB Living 6 3 3 SAB IAB Ectopic Multiple Live Births 3 # Outcome Date GA Lbr Malcolm/2nd Weight Sex Type Anes PTL Lv 6 Term 5 Term 4 Term 3 CS-Unspec 2 CS-Unspec 1 CS-Unspec Past Medical History: Diagnosis Date Allergic rhinitis Breast cancer screening by mammogram 04/2024 Eldon Cough secondary to angiotensin converting enzyme inhibitor (DEVON-I) 07/25/2023 H/O colonoscopy with polypectomy 11/2022 Pj- due 2027 History of hyperparathyroidism 2003 s/p Rt sup parathyroidectomy History of mononucleosis Hypercholesterolemia 2021 Attempting diet and exercise Labile essential hypertension 2021 Medullary sponge kidney History of nephrocalcinosis/lithi asis Osteopenia Postoperative primary hypothyroidism 2004 [facility] Statin intolerance Past Surgical History: Procedure Laterality Date SECTION (HISTORICAL) 3 pregnancies COLONOSCOPY 2016 2016 COLONOSCOPY W/ POLYPECTOMY 11/2022 Pj- due 2027 PARATHYROIDECTOMY Right 2003 Right sup lesion- Hashimotos also TUBAL LIGATION Family History Problem Relation Name Age of Onset Dementia Mother 85 age 91 High Blood Pressure Mother Depression Father in 90s No Known Problems Sister No Known Problems Sister No Known Problems Brother Sleep apnea Brother Sleep apnea Brother No Known Problems Maternal Grandmother age 99 Alcohol abuse Maternal Grandfather in 60 No Known Problems Paternal Grandmother in 90s No Known Problems Paternal Grandfather Ovarian cancer Neg Hx Colon cancer Neg Hx Breast cancer Neg Hx Uterine cancer Neg Hx Social History Socioeconomic History Marital status: Spouse name: Not on file Number of children: Not on file Years of education: Not on file Highest education level: Not on file Occupational History Not on file Tobacco Use Smoking status: Never Passive exposure: Never Smokeless tobacco: Never Vaping Use Vaping status: Never Used Substance and Sexual Activity Alcohol use: No Alcohol/week: 0.0 standard drinks of alcohol Drug use: No Sexual activity: Not on file Other Topics Concern Not on file Social History Narrative to Ferdinand (Hx of CAD) NS or drinker, Has 3 dtrs, first GD Rosalba born in 01/2022. 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 Enjoys [employer] and [employer] Social Drivers of Health Financial Resource Strain: Low Risk (11/28/2024) Overall Financial Resource Strain (CARDIA) Difficulty of Paying Living Expenses: Not hard at all Food Insecurity: No Food Insecurity (11/28/2024) Hunger Vital Sign Worried About Running Out of Food in the Last Year: Never true Ran Out of Food in the Last Year: Never true Transportation Needs: No Transportation Needs (11/28/2024) PRAPARE - Transportation Lack of Transportation (Medical): No Lack of Transportation (Non-Medical): No Physical Activity: Sufficiently Active (11/28/2024) Exercise Vital Sign Days of Exercise per Week: 3 days Minutes of Exercise per Session: 60 min Stress: No Stress Concern Present (11/28/2024) [place] [employer]ational [employer] - Occupational Stress Questionnaire Feeling of Stress : Not at all Social Connections: Unknown (11/28/2024) Social Connection and Isolation Panel [NHANES] Frequency of Communication with Friends and Family: More than three times a week Frequency of Social Gatherings with Friends and Family: Three times a week Attends Adventism Services: Patient declined Active Member of Clubs or Organizations: Yes Attends Club or Organization Meetings: More than 4 times per year Marital Status: Intimate Partner Violence: Not on file Housing Stability: Low Risk (11/28/2024) Housing Stability Vital Sign Unable to Pay for Housing in the Last Year: No Number of Times Moved in the Last Year: 0 Homeless in the Last Year: No MEDICATIONS: Current Outpatient Medications Medication Sig Dispense Refill alendronate (Fosamax) 70 MG tablet Take 70 mg by mouth once a week. cetirizine (ZyrTEC) 10 MG tablet Take 1 tablet (10 mg) by mouth daily. 90 tablet 3 cholecalciferol (Vitamin D-3) 25 MCG (1000 UT) capsule Take 5,000 Units by mouth in the morning. fluticasone (Flonase) 50 MCG/ACT nasal (more content not included)... [facility] Progress Note Insurance Claim Auditor was offere d to the patient for exam. Patient declined offer of junior financial analyst [facility] [id number] [facility] 36on 09-14-2024 36 Medication name: losartan (Cozaar) 25 MG tablet Medication dosage: 25 mg (Miligrams Monthly quantity needed: 30 How many day supply requestin days Medication route: oral (PO) Medication administration time(s): daily If taking medication PRN, reason for taking medication: N/A If this is a controlled substance do you receive this or any other controlled medication from any other doctor or facility: No Ordering provider: Dr. Tomlinson Date of last office visit: 04/16/2024 Date of next office visit: 01/27/2025 Date of last refill: (see medication tab): 05/17/2024 Updated/Validated preferred pharmacy: Yes Patient instructed to contact the pharmacy prior to picking up the medication: No [facility] 36on 09-03-2024 [address] [facility] DBT Breast - bilateral scree sharmainegon 05-18-2024 No mammographic evidence of malignancy. ASSESSMENT: Category 1 Negative RECOMMENDATION: Routine screening mammogram in 1 year. Bilateral CANCER RISK ASSESSMENT: This risk assessment is based on patient provided information collected in a risk survey taken at the time of this examination. LIFETIME BREAST CANCER RISK: [place] 8: 7.03% - If greater than or equal to 20%, consider annual mammogram and annual screening Breast MRI or follow up in high risk clinic. Is the patient at elevated risk based on the HBOC criteria? No (Hereditary Breast and Ovarian Cancer) - If Yes, consider genetic counseling and testing with high risk follow up Is the patient at elevated risk based on the Klein Syndrome criteria? No - If Yes, consider genetic counseling and testing with high risk follow up. Report Dictated on Electronically Signed By: Shirley Alexandre DO Electronically Signed Date/Time: 05/18/2024 2:13 PM [facility] Patient Name: DEVIN CHAPMAN : 1955 [id number] Exam Date/Time: 05/18/2024 12:45 Procedure: BI MAMMOGRAM SCREENING TOMOSYNTHESIS BILATERAL Ordering Provider: COLÓN EILEEN Reason For Exam: This exam was performed at: [address] [place] [address] PATIENT CANCER HISTORY: No Personal History of Cancer FAMILY CANCER HISTORY: No Family History of Cancer TECHNIQUE: 2D Bilateral CC and MLO 3D Bilateral CC and MLO Images reviewed with CAD Markings on images: BB's = Nipples, skin lesions Open jamul = Palpable Line = Scar COMPARISON: 12/10/2022, 04/03/2021, 04/15/2019, 02/20/2017, 08/30/14, 09/26/2011 TISSUE DENSITY: BIRADS C - The breasts are heterogeneously dense, which may obscure small masses. FINDINGS: No suspicious masses, architectural distortions or suspiciously clustered microcalcifications. No skin thickening or nipple retraction. No significant change from prior studies. [facility] Shirley Alexandre DO - 05/18/2024 Patient Name: DEVIN CHAPMAN : 1955 Exam Date/Time: 05/18/2024 12:45 Procedure: BI MAMMOGRAM SCREENING TOMOSYNTHESIS BILATERAL Ordering Provider: COLÓN EILEEN Reason For Exam: This exam was performed at: [address] [place] [address] PATIENT CANCER HISTORY: No Personal History of Cancer FAMILY CANCER HISTORY: No Family History of Cancer TECHNIQUE: 2D Bilateral CC and MLO 3D Bilateral CC and MLO Images reviewed with CAD Markings on images: BB's = Nipples, skin lesions Open jamul = Palpable Line = Scar COMPARISON: 12/10/2022, 04/03/2021, 04/15/2019, 02/20/2017, 08/30/14, 09/26/2011 TISSUE DENSITY: BIRADS C - The breasts are heterogeneously dense, which may obscure small masses. FINDINGS: No suspicious masses, architectural distortions or suspiciously clustered microcalcifications. No skin thickening or nipple retraction. No significant change from prior studies. IMPRESSION: No mammographic evidence of malignancy. ASSESSMENT: Category 1 Negative RECOMMENDATION: Routine screening mammogram in 1 year. Bilateral CANCER RISK ASSESSMENT: This risk assessment is based on patient provided information collected in a risk survey taken at the time of this examination. LIFETIME BREAST CANCER RISK: [place] 8: 7.03% - If greater than or equal to 20%, consider annual mammogram and annual screening Breast MRI or follow up in high risk clinic. Is the patient at elevated risk based on the HBOC criteria? No (Hereditary Breast and Ovarian Cancer) - If Yes, consider genetic counseling and testing with high risk follow up Is the patient at elevated risk based on the Klein Syndrome criteria? No - If Yes, consider genetic counseling and testing with high risk follow up. Report Dictated on Electronically Signed By: Shirley Alexandre DO Electronically Signed Date/Time: 05/18/2024 2:13 PM EDT [facility] Radiology Study observation (narrative) [facility] [employer] DBT Breast - bilateral scree ningOrdered By: Shirley Alexandre on 05-18-2024 [facility] [employer] Work Phone: 36on 05-14-2024 36 Placed call to alida ozuna to discuss provider direction. Message left on voicemail to return call. Please release message to patient: BP too high, I rec inc Losartan to 50 mg q day, new rx sent. Rech BP 4 wks Normal [facility] 36 ----- Message from Mauro Tomlinson DO sent at 05/13/2024 4:05 PM EDT ----- ----- Message ----- From: Charity Johnson MA Sent: 05/13/2024 2:04 PM EDT To: Mauro Tomlinson DO Normal [facility] Progress Noteon 05-13-2024 Progress Note Placed call to patie nt to discuss provider direction. Message left on voicemail to return call. Also, sent a MyChart message. Normal [facility] Progress Note BP too high, I rec i nc Losartan to 50 mg q day, new rx sent. Rech BP 4 wks, and to for coding Normal [facility] Progress Note The patient, Neville Chapman, identity was verified by name and . Supervising provider for clinic visit: Dr. Mauro Tomlinson Chief Complaint Patient presents with Blood Pressure Check Reason for visit: Elevated BP Reading at last visit - added new medication at last visit Devin Chapman has validated current medications Patient states compliant with medications as written: Yes BP medication taken prior to this visit? Yes Are you having any symptoms? No Current Blood Pressure: 144/85 Current Heart Rate: 66 Did Blood Pressure need rechecked: yes Second Blood Pressure Readin/88 Second Heart Rate: 72 Assessment/Plan: Devin was seen today for blood pressure check. Diagnoses and all orders for this visit: Essential hypertension elevated Future Appointments Date Time Provider Department Center 05/18/2024 1:00 PM [facility] BI EXAM ROOM 1 [facility] BREAST [facility] Imaging 11/30/2024 10:00 AM Yumi Colón MD [facility] OB Offi 01/27/2025 8:00 AM Mauro Tomlinson DO [facility] Cc'd provider blood pressure readings? Yes Normal [facility] Progress Note Patient saw YesWeAdt message. Normal [facility] CNOVon 03-14-2024 CNOV Office Visit (NEUBSM ) DEVIN CHAPMAN ([id number]) 1955 F Date Time Provider Department 03/14/24 1:45 PM MORENITA KAN During your visit today, we recorded the following information about you: Morenita Kan APRN.CNP 03/14/2024 4:28 PM Signed DATE: March 14, 2024 PT. NAME: Devin Chapman [facility]#: [id number] IRB #: [id number]. PROTOCOL: [facility] Brain Study Cuff Maker: Myra Moses MD, , Chapin Becker MD, [facility] social contact worker for study related questions: Shaina Costa Is today the participant's first study visit? Yes Were there changes made to the informed consent since the last visit? Not Applicable If yes, were changes reviewed and explained to subject? Not Applicable Was a new copy of the informed consent signed, placed in the chart, placed in the study file and was a copy given to the patient? Not Applicable Patient Identification was verified by asking the patients Name and Date Of : YES Subject continues to give consent for participation and for procedures related to study YES. Time: 1532 EKG/ECG was performed on patient. Patient tolerated procedure well. BP: 154 / 84 BP Site: left arm BP Position: sitting Cuff size: regular Pulse: 74 Resp: 16 SPO2: 99 Weight: 187 lbs Height: 5' 4 Result of Physical Exam Body System Eyes: Normal ,glasses Ears, Nose, Mouth and Throat: Normal Cardiovascular: Normal Respiratory: Normal Musculoskeletal: Normal Integumentary: Normal Handedness: Right hand Results of Mental Status Assessment Mental Assessments Attention: Abnormality Present: No Memory Working Memory: Abnormality Present: No Recent (Episodic) Memory: Abnormality Present: No Remote (Semantic) Memory: Abnormality Present: No Language Spontaneous Speech: Abnormality Present: No Comprehension: Abnormality Present: No Naming: Abnormality Present: No Repetition: Abnormality Present: No Reading: Abnormality Present: No Affect: Abnormality Present: No Craninal Nerve Assessment Visual Garcia: Normal EOM: Normal Nystagmus: Physiologic Pupils: Equal and reactive Ptosis: Absent Trigeminal: Normal CN VII: Normal CN VIII: Normal CN IX: Normal CN X: Normal CN XI: Normal CN XII: Normal Assessment of Motor and Bulk and Tones Motor Assessments Muscle bulk-global: Normal Muscle tone-global: Normal Motor Strength Assessment Shoulder flexion: Right 5 Left 5 Shoulder external rotation: Right 5 Left 5 Shoulder abduction: Right 5 Left 5 Shoulder adduction: Right 5 Left 5 Elbow flexion: Right 5 Left 5 Elbow extension: Right 5 Left 5 Wrist flexion: Right 5 Left 5 Wrist extension: Right 5 Left 5 Finger flexion/lock assembler: Right 4 Left 4 Flexor pollicis longus: Right 4 Left 4 Abductor pollicis brevis: Right 5 Left 5 Hip flexion: Right 5 Left 5 Hip extension: Right 5 Left 5 Hip abduction: Right 5 Left 5 Hip adduction: Right 5 Left 5 Knee flexion: Right 5 Left 5 Knee extension: Right 5 Left 5 Ankle eversion: Right 5 Left 5 Ankle inversion: Right 5 Left 5 Ankle plantar flexion: Right 5 Left 5 Ankle dorsiflexion: Right 5 Left 5 Extensor halluces longus: Right 5 Left 5 Flexor digitorum longus: Right 5 Left 5 Reflexes - MRC Grading Method Triceps: Right 2+ Left 2+ Biceps: Right 2+ Left 2+ Brachioradialis: Right 2+ Left 2+ Patellar: Right 2+ Left 2+ Achilles: Right 0 Left 0 Plantar: Right Downgoing Left Downgoing Weakness?: No Tremor: No Cerebellar/Coordinatio n Assessment [id number]: Abnormality present: No, Relo-og-Aovm: Abnormality present: No, Finger Tapping - Abnormality present: No Fist Open/Close - Abnormality present: No Pronation/Supination of the Hand - Abnormality present: No Toe Tapping - Abnormality present: No Heel Tapping - Abnormality present: No Gait Gait-global assessment: Normal Toe Walk: Normal Heel Walk: Normal Tandem Walk: Normal Romberg: Negative (pass) Sensory/Sensation Sensory System-globlal assessment: Normal Morenita Altamahaw, 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.LABORER [employer] Allergies As of Date: 03/14/2024 Noted Allergy Reaction LISINOPRIL 01/19/2024 3 - Cough Date Reviewed: 01/19/2024 Reviewed by: Ann Austin MA - Fully Assessed Primary Visit Diagnosis:Research exam [Z00.6] Prescriptions as of 03/14/2024 - levothyroxine (SYNTHROID) 75 mcg tablet Take one pill daily, no pill on Sundays. - alendronate (FOSAMAX) 70 mg tablet TAKE 1 TABLET BY MOUTH ONCE A WEEK IN THE MORNING WITH CUP OF WATER ON AN EMPTY STOMACH. NOTHING ELSE BY MOUTH AND STAY UPRIGHT FOR 30 MINUTES - cholecalciferol (VITAMIN D-3) 5,000 unit tab Take 1 tablet by mouth once daily. Problem List As Of Date 03/14/2024 Noted Resolved Hyperparathyroidism [252.0] (more content not included)... Normal [facility] Comprehensive metabolic 2000 panelon 01-19-2024 Albumin [Mass/Vol] 4.4 g/dL 3.9 - 4.9 g/dL [facility] ALP [Catalytic activity/Vol] 62 U/L 34 - 123 U/L [facility] ALT [Catalytic activity/Vol] 22 U/L 7 - 38 U/L [facility] Anion gap [Moles/Vol] 11 mmol/L 8 - 15 mmol/L [facility] AST [Catalytic activity/Vol] 21 U/L 13 - 35 U/L [facility] Bilirubin [Mass/Vol] 0.6 mg/dL 0.2 - 1 .3 mg/dL [facility] Calcium [Mass/Vol] 8.7 mg/dL 8.5 - 10. 2 mg/dL [facility] Chloride [Moles/Vol] 104 mmol/L 98 - 10 7 mmol/L [facility] CO2 [Moles/Vol] 27 mmol/L 22 - 30 mmol/L [facility] Creatinine [Mass/Vol] 0.93 mg/dL 0.58 - 0.96 mg/dL [facility] GFR/1.73 sq M.predicted among non-blacks MDRD (S/P/Bld) [Vol rate/Area] 68 mL/min/{1.73_m2} - PINF [facility] Comment on above: Estimated Glomerular Filtration Rate (eGFR) is calculated using the 2020 CKD-EPI creatinine equation. This equation utilizes serum creatinine, sex, and age as parameters. The creatinine assay has traceable calibration to isotope dilution-mass spectrometry. Refer to KDIGO guidelines for clinical interpretation. In patients with unstable renal function, e.g. those with acute kidney injury, the eGFR may not accurately reflect actual GFR. Glucose [Mass/Vol] 96 mg/dL 74 - 99 mg/dL [facility] Comment on above: The [place] Diab[employer] s Association (ADA) provides guidance for cutoff values for fasting glucose and random glucose. The ADA defines fasting as no caloric intake for at least 8 hours. Fasting plasma glucose results between 100 to 125 mg/dL indicate increased risk for diabetes (prediabetes). Fasting plasma glucose results greater than or equal to 126 mg/dL meet the criteria for diagnosis of diabetes. In the absence of unequivocal hyperglycemia, results should be confirmed by repeat testing. In a patient with classic symptoms of hyperglycemia or hyperglycemic crisis, random plasma glucose results greater than or equal to 200 mg/dL meet the criteria for diagnosis of diabetes. Reference: Standards of Medical Care in Diabetes 2016, [place] Diabetes Association. Diabetes Care. 2016.39(Suppl 1). Interpretation and review of laboratory results Normal [facility] Potassium [Moles/Vol] 4.2 mmol/L 3.7 - 5.1 mmol/L [facility] Protein [Mass/Vol] 7.2 g/dL 6.3 - 8.0 g/dL Cl [facility] Sodium [Moles/Vol] 142 mmol/L 136 - 144 mmol/L [facility] Urea nitrogen [Mass/Vol] 17 mg/dL 7 - 21 mg/dL [facility] Lipid 1996 panelon 4 Cholesterol [Mass/Vol] 215 mg/dL High NINF - 200 mg/dL [facility] Comment on above: <200 mg/dL, Desirabl e 200-239 mg/dL, Borderline high >239 mg/dL, High Cholesterol in HDL [Mass/Vol] 59 mg/dL 39 - PINF mg/dL [facility] Comment on above: 40-59 mg/dL, Accepta ble >59 mg/dL, High: Negative risk factor for coronary heart disease <40 mg/dL, Low: Positive risk factor for coronary heart disease Cholesterol in LDL [Mass/Vol] 128 mg/dL High NINF - 100 mg/dL [facility] Comment on above: <100 mg/dL, Optimal 100-129 mg/dL, Near optimal/above optimal 130-159 mg/dL, Borderline high 160-189 mg/dL, High >189 mg/dL, Very high Secondary prevention optimal LDL Cholesterol levels are recommended to be < 70 mg/dL Cholesterol in LDL/Cholesterol in HDL [Mass ratio] 2.17 {ratio} NINF - 2.54 [facility] Comment on above: Reference: 1. National Cholesterol Education Program ATP III Guideline At-A-Glance Quick Desk Reference: National Heart, Lung, and Blood [place]. National Institutes of Health. 2001: NIH Publication No. 01-3305. 2. An International Atherosclerosis Society position paper: global recommendations for the management of dyslipidemia: executive summary, Atherosclerosis. 2014: 232(2):410-413. Cholesterol in VLDL [Mass/Vol] 28 mg/dL NINF - 30 mg/dL [facility] Cholesterol non HDL [Mass/Vol] 156 mg/dL High NINF - 130 mg/dL [facility] Comment on above: <130 mg/dL, Optimal 130-159 mg/dL, Near optimal/above optimal 160-189 mg/dL, Borderline high 190-219 mg/dL, High >219 mg/dL, Very high Secondary prevention optimal non HDL Cholesterol levels are recommended to be <100 mg/dL Cholesterol.total/Cho lesterol in HDL [Mass ratio] 3.64 {ratio} NINF - 5.10 [facility] Fasting Time 16 hrs [facility] Interpretation and review of laboratory results Abnormal [facility] Triglyceride [Mass/Vol] 138 mg/dL NINF - 150 mg/dL [facility] Comment on above: <150 mg/dL, Normal 150-199 mg/dL, Borderline high 200-499 mg/dL, High >499 mg/dL, Very high No Panel Informationon 01-18 [facility] THYROID STIMULATING HORMONEo n 01-19-2024 TSH Qn 1.810 m[IU]/L [facility] TSH Qnon 01-19-2024 Interpretation and review of laboratory results Normal [facility] 25-hydroxyvitamin D3 [Mass/V ol]on 07-25-2023 Interpretation and review of laboratory results Abnormal [employer] Therapy is based on measurement of Total 25-OHD with the following classification levels: Less than 20 ng/mL: Indicative of Vit D deficiency 20-30 ng/mL: Suggests Vit D insufficiency Optimal: Greater than or equal to 30 ng/mL Test performed by [employer] Competitive Immunoassay, measuring Total Vitamin D, not individual fractions. [facility] CBC W Auto Differential pane l (Bld)Ordered By: Lupis Dupree on 07-25-2023 Basophils (Bld) [#/Vol] 0.0 10*3/uL 0.0 - 0.2 10*3/uL [employer] Basophils/100 WBC (Bld) 0.7 % 0.0 - 2.0 % [employer] Eosinophils (Bld) [#/Vol] 0.1 10*3/uL 0.0 - 0.5 10*3/uL [employer] Eosinophils/100 WBC (Bld) 1.3 % 1.0 - 6.0 % [employer] Erythrocyte distribution width (RBC) [Ratio] 12.8 % 11.5 - 14.5 % [employer] Hematocrit (Bld) [Volume fraction] 46.3 % 35.0 - 47.0 % [facility] Hemoglobin (Bld) [Mass/Vol] 15.7 g/dL 11.7 - 16.0 g/dL [facility] Immature granulocytes (Bld) [#/Vol] 0.0 10*3/uL NINF - 0.0 10*3/uL [facility] Immature granulocytes/100 WBC (Bld) 0.3 % High NINF - 0.0 % [facility] Interpretation and review of laboratory results Abnormal [facility] Lymphocytes (Bld) [#/Vol] 2.3 10*3/uL 1.0 - 4.3 10*3/uL [facility] Lymphocytes/100 WBC (Bld) 38.4 % 20.0 - 40.0 % [facility] MCH (RBC) [Entitic mass] 31.7 pg 26.0 - 34.0 pg [facility] MCHC (RBC) [Mass/Vol] 33.9 % 32.0 - 36.0 % [facility] MCV (RBC) [Entitic vol] 93.5 fL 80.0 - 98.0 fL [facility] Monocytes (Bld) [#/Vol] 0.4 10*3/uL 0.0 - 0.8 10*3/uL [facility] Monocytes/100 WBC (Bld) 7.2 % 2.0 - 10.0 % [facility] Neutrophils (Bld) [#/Vol] 3.1 10*3/uL 1.8 - 7.0 10*3/uL [facility] Neutrophils/100 WBC (Bld) 52.1 % 40.0 - 80.0 % [facility] Platelet mean volume (Bld) [Entitic vol] 9.2 fL 7.4 - 12.4 fL [facility] Comment on above: MPV is a calculated measurement using platelet volume ratio Platelets (Bld) [#/Vol] 217 10*3/uL 140 - 440 10*3/uL [facility] RBC (Bld) [#/Vol] 4.95 10*6/uL 3.8 - 5.20 10*6/uL [facility] WBC (Bld) [#/Vol] 6.0 10*3/uL 3.6 - 10.7 10*3/uL [facility] Comprehensive metabolic 1998 panelon 07-25-2023 Albumin [Mass/Vol] 4.3 g/dL 3.5 - 5.0 g/dL [facility] ALP [Catalytic activity/Vol] 62 U/L 38 - 126 U/L [facility] ALT [Catalytic activity/Vol] 35 U/L High 0 - 34 U/L [facility] Anion gap [Moles/Vol] 8 mmol/L 3 - 13 mmol/L [facility] AST [Catalytic activity/Vol] 34 U/L 15 - 46 U/L [facility] Bilirubin [Mass/Vol] 0.9 mg/dL 0.2 - 1 .3 mg/dL [facility] Calcium [Mass/Vol] 8.6 mg/dL 8.4 - 10. 4 mg/dL [facility] Chloride [Moles/Vol] 105 mmol/L 98 - 10 7 mmol/L [facility] CO2 [Moles/Vol] 27 mmol/L 22 - 30 mmol/L [facility] Creatinine [Mass/Vol] 0.77 mg/dL 0.52 - 1.04 mg/dL [facility] GFR/1.73 sq M.predicted MDRD (S/P/Bld) [Vol rate/Area] 84.7 mL/min/{1.73_m2} [facility] Comment on above: Calculation based on the Chronic Kidney Disease Epidemiology Collaboration (CKD-EPI) equation refit without adjustment for race Glucose [Mass/Vol] 82 mg/dL 70 - 100 mg/dL [facility] Potassium [Moles/Vol] 4.2 mmol/L 3.5 - 5.1 mmol/L [facility] Protein [Mass/Vol] 7.2 g/dL 6.3 - 8.2 g/dL [facility] Sodium [Moles/Vol] 140 mmol/L 135 - 145 mmol/L [facility] Urea nitrogen [Mass/Vol] 18 mg/dL High 7 - 17 mg/dL [facility] Free T4 [Mass/Vol]on 023 Free T4 Dialysis [Mass/Vol] 1.69 ng/dL 0.78 - 2.19 ng/dL [facility] Interpretation and review of laboratory results Normal [facility] Lipid 1996 panelon 3 Cholesterol [Mass/Vol] 248 mg/dL High NINF - 200 mg/dL [facility] Cholesterol in HDL [Mass/Vol] 67 mg/dL High 40 - 60 mg/dL [facility] Cholesterol in LDL [Mass/Vol] 153 mg/dL High 0 - <100 [facility] Cholesterol.total/Cho lesterol in HDL [Mass ratio] 4 {ratio} [facility] Comment on above: Ref Range: < 3 Low Risk for CHD 3-6 Mod Risk for CHD > 6 High Risk for CHD Triglyceride [Mass/Vol] 139 mg/dL NINF - 150 mg/dL [facility] No Panel Informationon 07-25 Interpretation and review of laboratory results Abnormal [facility] TSHon 07-25-2023 TSH Qn 1.628 m[IU]/L [facility] TSH Qnon 07-25-2023 Interpretation and review of laboratory results Normal [facility] Vitamin D Deficiency Screeni ng (Vit D 25)on 07-25-2023 25-hydroxyvitamin D3 [Mass/Vol] 28 ng/mL Low 30 - 100 ng/mL [facility] ECG 12 leadon 01-16-2023 [facility] T4 FREE/FREE THYROXon 2021 Free T4 [Mass/Vol] 1.4 ng/dL 0.9 - 1.7 ng/dL [facility] TSH BLDon 07-01-2022 TSH Qn 0.955 m[IU]/L 0.270 - 4.200 mIU/L [facility] VITAMIN D 25 HYDROXYon 07-01 25-hydroxyvitamin D3 [Mass/Vol] 31.5 ng/mL 31.0 - 80.0 ng/mL [facility] Basophil percentageon 2021 Basophil percentage < 0.9 mg[facility] Work [facility]: No Panel Informationon 02-13 Bedside Estimated GFR (eGFR) > 60.0000 mL/min >60 [facility] Work Phone: BLANKA URIEL DIGITAL SCREEN BILA TERALOrdered By: Keshawn French on 04-03-2021 Patient Name: DEVIN CHAPMAN Mammography ACCESSION EXAM DATE/TIME PROCEDURE ORDERING PROVIDER [id number] 04/03/2021 10:54 EDT [facility] Breast Tomosynthesis DO [facility]EN[facility] PAUL E. [facility] Scr CPT code 23666 [id number] Reason For Exam (MG Breast Tomosynthesis BI Scr) screening Report TIME SINCE LAST MAMMOGRAM: Last mammogram was performed 2 years ago. REASON FOR EXAM: screening, asymptomatic. PROCEDURE: MG BREAST TOMOSYNTHESIS BL SCR: 2020 - 2D/3D Procedure 3D Bilateral CC and MLO view(s) were taken. 2D Bilateral CC and MLO view(s) were taken. Prior study comparison: April 15, 2019, bilateral MG breast tomosynthesis bl scr performed at [facility]. February 20, 2017, bilateral MG mammogram digital screening performed at [facility]. August 30, 2014, bilateral screening mammogram performed at [facility]. TISSUE DENSITY: BIRADS C - The breast tissue is heterogeneously dense, which could obscure underlying abnormalities. . PATIENT CANCER HISTORY: No Personal History of Cancer FAMILY CANCER HISTORY: No Family History of Cancer FINDINGS: No suspicious masses, architectural distortions or suspiciously clustered microcalcifications are identified. There is no evidence of skin thickening or nipple retraction. There are no significant changes when compared with prior studies. No mammographic evidence of malignancy. Markings on images: BB's = Nipples; skin lesions Open jamul = Palpable Line = Scar 2D digital mammography and tomosynthesis imaging were performed and reviewed with CAD. Mammography Report ASSESSMENT: Category 1 Negative RECOMMENDATION: Routine screening mammogram of both breasts in 1 year. . Report Dictated on Cancer Risk Assessment: This risk assessment is based on patient provided information collected in a risk survey taken at the time of this examination. Lifetime breast cancer risk: Low Risk - If greater than or equal to 20%, consider annual mammogram and annual screening Breast MRI or follow up in high risk clinic. A score of Low Risk indicates a score of less than 20%. Is the patient at elevated risk based on the HBOC criteria? No (Hereditary Breast and Ovarian Cancer) - If yes, consider genetic counseling and testing with high risk follow up. Is the patient at elevated risk based on the Klein Syndrome criteria? No - If yes, consider genetic counseling and testing with high risk follow up. --- Final --- Signed Date and Time: 04/03/2021 11:45 am Signed by: MD SHERRON, ANA ANTONY Work Phone: Will, [facility] Incoming Radiology Results From [employer] - 04/03/2021 1:13 PM EDT Patient Name: DEVIN CHAPMAN Mammography ACCESSION EXAM DATE/TIME PROCEDURE ORDERING PROVIDER [id number] 04/03/2021 10:54 EDT MG Breast Tomosynthesis DO [facility] CPT code [id number] Reason For Exam (MG Breast Tomosynthesis BI Scr) screening Report TIME SINCE LAST MAMMOGRAM: Last mammogram was performed 2 years ago. REASON FOR EXAM: screening, asymptomatic. PROCEDURE: MG BREAST TOMOSYNTHESIS BL SCR: 2020 - 2D/3D Procedure 3D Bilateral CC and MLO view(s) were taken. 2D Bilateral CC and MLO view(s) were taken. Prior study comparison: April 15, 2019, bilateral MG breast tomosynthesis bl scr performed at [facility]. February 20, 2017, bilateral MG mammogram digital screening performed at [facility]. August 30, 2014, bilateral screening mammogram performed at [facility]. TISSUE DENSITY: BIRADS C - The breast tissue is heterogeneously dense, which could obscure underlying abnormalities. . PATIENT CANCER HISTORY: No Personal History of Cancer FAMILY CANCER HISTORY: No Family History of Cancer FINDINGS: No suspicious masses, architectural distortions or suspiciously clustered microcalcifications are identified. There is no evidence of skin thickening or nipple retraction. There are no significant changes when compared with prior studies. No mammographic evidence of malignancy. Markings on images: BB's = Nipples; skin lesions Open jamul = Palpable Line = Scar 2D digital mammography and tomosynthesis imaging were performed and reviewed with CAD. Mammography Report ASSESSMENT: Category 1 Negative RECOMMENDATION: Routine screening mammogram of both breasts in 1 year. . Report Dictated on Cancer Risk Assessment: This risk assessment is based on patient provided information collected in a risk survey taken at the time of this examination. Lifetime breast cancer risk: Low Risk - If greater than or equal to 20%, consider annual mammogram and annual screening Breast MRI or follow up in high risk clinic. A score of Low Risk indicates a score of less than 20%. Is the patient at elevated risk based on the HBOC criteria? No (Hereditary Breast and Ovarian Cancer) - If yes, consider genetic counseling and testing with high risk follow up. Is the patient at elevated risk based on the Klein Syndrome criteria? No - If yes, consider genetic counseling and testing with high risk follow up. --- Final --- Signed Date and Time: 04/03/2021 11:45 am Signed by: MD SHERRON, ANA [employer] Work Phone: [employer] Work Phone: MG Breast Tomosynthesis Scr Blon 04-03-2021 MG Breast Tomosynthesis Scr Bl Patient Name: DEVIN CHAPMAN Mammography ACCESSION EXAM DATE/TIME PROCEDURE ORDERING PROVIDER [id number] 04/03/2021 10:54 EDT MG Breast Tomosynthesis DO FRENCH PAUL E[employer] CPT code [id number] Reason For Exam (MG Breast Tomosynthesis BI Scr) screening Report TIME SINCE LAST MAMMOGRAM: Last mammogram was performed 2 years ago. REASON FOR EXAM: screening, asymptomatic. PROCEDURE: MG BREAST TOMOSYNTHESIS BL SCR: 2020 - 2D/3D Procedure 3D Bilateral CC and MLO view(s) were taken. 2D Bilateral CC and MLO view(s) were taken. Prior study comparison: April 15, 2019, bilateral MG breast tomosynthesis bl scr performed at [facility]. February 20, 2017, bilateral MG mammogram digital screening performed at [facility]. August 30, 2014, bilateral screening mammogram performed at [facility]. TISSUE DENSITY: BIRADS C - The breast tissue is heterogeneously dense, which could obscure underlying abnormalities. . PATIENT CANCER HISTORY: No Personal History of Cancer FAMILY CANCER HISTORY: No Family History of Cancer FINDINGS: No suspicious masses, architectural distortions or suspiciously clustered microcalcifications are identified. There is no evidence of skin thickening or nipple retraction. There are no significant changes when compared with prior studies. No mammographic evidence of malignancy. Markings on images: BB's = Nipples; skin lesions Open jamul = Palpable Line = Scar 2D digital mammography and tomosynthesis imaging were performed and reviewed with CAD. Mammography Report ASSESSMENT: Category 1 Negative RECOMMENDATION: Routine screening mammogram of both breasts in 1 year. . Report Dictated on Cancer Risk Assessment: This risk assessment is based on patient provided information collected in a risk survey taken at the time of this examination. Lifetime breast cancer risk: Low Risk - If greater than or equal to 20%, consider annual mammogram and annual screening Breast MRI or follow up in high risk clinic. A score of Low Risk indicates a score of less than 20%. Is the patient at elevated risk based on the HBOC criteria? No (Hereditary Breast and Ovarian Cancer) - If yes, consider genetic counseling and testing with high risk follow up. Is the patient at elevated risk based on the Klein Syndrome criteria? No - If yes, consider genetic counseling and testing with high risk follow up. Final Signed Date and Time: 04/03/2021 11:45 am Signed by: MD SHERRON, ANA [facility] MRI UE Non Joint w/o Contras t on 11-24-2020 MRI UE Non Joint w/o Contrast Right Patient Name: DEVIN CHAPMAN Magnetic Resonance Imaging ACCESSION EXAM DATE/TIME PROCEDURE ORDERING PROVIDER [id number] 11/24/2020 16:19 EDT MRI Up Ext Non Joint w/o MD CHRISTY, KEL R Contrast Right CPT code 24464 Reason For Exam (MRI Up Ext Non Joint w/o Contrast Right) RUPTURE OF RADIAL COOATERARAL LIGAMENT RT THUMB;RUPTURE OF RADIAL COOATERARAL LIGAMENT RT THUMB Report Examination: MRI right thumb Clinical Indication: RUPTURE OF RADIAL COLLATERAL LIGAMENT RT THUMB Comparison: None Findings: Multiplanar multisequence high field strength MRI images were obtained through the right upper extremity, thumb without contrast. There is mild triscaphe and first carpal metacarpal cartilage thinning. Tiny osteophytes at the first carpal metacarpal joint. No significant subluxation. Ligaments and capsule appear intact. There is slight thinning of the radial collateral ligament at the metacarpal phalangeal joint with a tiny 3 mm partial-thickness likely chronic tear along the dorsal margin proximally series 6 image five and series 3 image three and representing approximately 25 percent of the radial collateral ligament. No evidence of tendon tear or tenosynovitis. There is mild metacarpal phalangeal cartilage thinning with tiny osteophytes, minimal osteoarthropathy. There is cartilage thinning along the interphalangeal joint with small accessory bone volar aspect best appreciated on sagittal series 4. Impression: 1. Mild osteoarthropathy of the thumb. 2. Small likely chronic partial tear of the radial collateral ligament metacarpal phalangeal joint along its dorsal aspect more proximally involving approximately 25 percent of the ligament. Magnetic Resonance Imaging Report Report Dictated on Workstation: [id number] Final Dictating Physician: MD REN ANTHONY J Signed Date and Time: 11/26/2020 8:19 pm Signed by: MD REN ANTHONY J Transcribed Date and Time: 11/26/2020 8:20 Normal [facility] CR Finger(s) Min 2 Views [facility] 11-10-2020 CR Finger(s) Min 2 Views Right Patient Name: DEVIN CHAPMAN Diagnostic Radiology ACCESSION EXAM DATE/TIME PROCEDURE ORDERING PROVIDER [id number] 11/10/2020 09:33 EDT CR Finger(s) Min 2 Views MD CHRISTY, KEL Pride Right CPT code 65372 Reason For Exam (CR Finger(s) Min 2 Views Right) Chronic pain of right thumb Report RIGHT THUMB: CLINICAL INDICATION: Chronic pain TECHNIQUE: AP and less Lateral and oblique COMPARISON: 07/19/2019. FINDINGS: There is no evidence for fracture or dislocation. No bone lesion is identified. There is no soft tissue abnormality. IMPRESSION: Normal right thumb. Report Dictated on Workstation: [employer] Final Dictated: 11/11/2020 4:10 am Dictating Physician: MD BAER JEFFREY Signed Date and Time: 11/11/2020 4:11 am Signed by: MD BAER JEFFREY Transcribed Date and Time: 11/11/2020 4:10 Normal [facility] CR Ankle 3+ Views Lefton CR Ankle 3+ Views Left Patient Name: DEVIN CHAPMAN Diagnostic Radiology ACCESSION EXAM DATE/TIME PROCEDURE ORDERING PROVIDER [id number] 07/13/2020 16:48 EST CR Ankle 3+ Views Left DO FRENCH PAUL E. CPT code 78082 Reason For Exam (CR Ankle 3+ Views Left) ' Report Left ankle: 07/13/2020. Clinical Information: Pain. Findings: 3 weightbearing views of the left ankle reveal the bones to be well mineralized. There is no evidence of fracture or dislocation. The ankle mortise is intact. There is a moderately large plantar calcaneal spur. Impression: No acute process. Plantar spur. Report Dictated on Final Dictating Physician: MD PAULINO RISA Signed Date and Time: 07/13/2020 7:14 pm Signed by: MD PAULINO RISA Transcribed Date and Time: 07/13/2020 7:15 Normal [facility] XR ANKLE LEFT (MIN 3 VIEWS)o n 07-13-2020 Patient Name: DEVIN CHAPMAN Diagnostic Radiology ACCESSION EXAM DATE/TIME PROCEDURE ORDERING PROVIDER [id number] 07/13/2020 16:48 EST CR Ankle 3+ Views Left DO FRENCH PAUL E. CPT code 49116 Reason For Exam (CR Ankle 3+ Views Left) ' Report Left ankle: 07/13/2020. Clinical Information: Pain. Findings: 3 weightbearing views of the left ankle reveal the bones to be well mineralized. There is no evidence of fracture or dislocation. The ankle mortise is intact. There is a moderately large plantar calcaneal spur. Impression: No acute process. Plantar spur. Report Dictated on --- Final --- Dictating Physician: MD PAULINO RISA Signed Date and Time: 07/13/2020 7:14 pm Signed by: MD PAULINO RISA Transcribed Date and Time: 07/13/2020 7:15 [employer] Felipe Solis Incoming Radiology Results From [facility] - 07/13/2020 7:15 PM EST Patient Name: DEVIN CHAPMAN Diagnostic Radiology ACCESSION EXAM DATE/TIME PROCEDURE ORDERING PROVIDER [id number] 07/13/2020 16:48 EST CR Ankle 3+ Views Left DO FRENCH PAUL E. CPT code 32177 Reason For Exam (CR Ankle 3+ Views Left) ' Report Left ankle: 07/13/2020. Clinical Information: Pain. Findings: 3 weightbearing views of the left ankle reveal the bones to be well mineralized. There is no evidence of fracture or dislocation. The ankle mortise is intact. There is a moderately large plantar calcaneal spur. Impression: No acute process. Plantar spur. Report Dictated on --- Final --- Dictating Physician: MD PAULINO RISA Signed Date and Time: 07/13/2020 7:14 pm Signed by: MD PAULINO RISA Transcribed Date and Time: 07/13/2020 7:15 [employer] Vital Signs Date Time Vital Sign Value Performing Clinician Justin zhong 01-19-2025 08:06-0400 Diastolic blood pressure 85 mm[Hg] Ryan Barbosa MD Work Phone: [facility] 01-19-2025 08:06-0400 Systolic blood pressure 144 mm[Hg] Ryan Barbosa MD Work Phone: [facility] 01-19-2025 07:53-0400 Body height 164.2 cm Ryan Barbosa MD Work Phone: [facility] 01-19-2025 07:53-0400 Body mass index (BMI) [Ratio] 27.56 kg/m2 Ryan Barbosa MD Work Phone: [facility] 01-19-2025 07:53-0400 Body weight 74.3 kg Ryan Barbosa MD Work Phone: [facility] 01-19-2025 07:53-0400 Heart rate 73 /min Ryan Barbosa MD Work Phone: [facility] 01-19-2025 07:53-0400 SaO2% (BldA) [Mass fraction] 98 % Ryan Barbosa MD Work Phone: [facility] 11-30-2024 10:44-0400 Diastolic blood pressure 90 mm[Hg] Yumi Colón MD Work Phone: [facility] [employer] 11-30-2024 10:44-0400 Systolic blood pressure 140 mm[Hg] Yumi Colón MD Work Phone: [facility] [employer] 11-30-2024 10:13-0400 Heart rate 73 /min Yumi Colón MD Work Phone: [facility] [employer] 11-30-2024 10:12-0400 Body height 165.1 cm Yumi Colón MD Work Phone: [facility] [employer] 11-30-2024 10:12-0400 Body mass index (BMI) [Ratio] 27.12 kg/m2 Yumi Colón MD Work Phone: [facility] [employer] 11-30-2024 10:12-0400 Body weight 73.94 kg Yumi Colón MD Work Phone: [facility] [employer] 05-18-2024 12:51-0400 Body height 165.1 cm Yumi Colón MD Work Phone: [facility] [employer] 05-18-2024 12:51-0400 Body mass index (BMI) [Ratio] 26.63 kg/m2 Yumi Colón MD Work Phone: [facility] [employer] 05-18-2024 12:51-0400 Body weight 72.58 kg Yumi Colón MD Work Phone: [facility] [employer] 05-13-2024 14:02-0400 Diastolic blood pressure 88 mm[Hg] [facility] [employer] 05-13-2024 14:02-0400 Heart rate 72 /min [facility] [employer] 05-13-2024 14:02-0400 Systolic blood pressure 144 mm[Hg] [facility] Schedule [facility] [employer] 05-10-2024 10:41-0400 Body height 165.1 cm Samy Teran MD Work Phone: [employer] 05-10-2024 10:41-0400 Body mass index (BMI) [Ratio] 27.12 kg/m2 Samy Teran MD Work Phone: [employer] 05-10-2024 10:41-0400 Body weight 73.94 kg Samy Teran MD Work Phone: [facility] [employer] 05-10-2024 10:41-0400 Diastolic blood pressure 82 mm[Hg] Samy Teran MD Work Phone: [employer] 05-10-2024 10:41-0400 Systolic blood pressure 128 mm[Hg] Samy Teran MD Work Phone: [facility] [employer] 04-16-2024 07:31-0400 Body height 165.1 cm Mauro Tomlinson DO Work Phone: [employer] 04-16-2024 07:31-0400 Body mass index (BMI) [Ratio] 27.12 kg/m2 Mauro Zavalaa DO Work Phone: [employer] 04-16-2024 07:31-0400 Body temperature 97 [degF] Mauro Zavalaa DO Work Phone: [employer] 04-16-2024 07:31-0400 Body weight 73.94 kg Mauro Zavalaa DO Work Phone: [employer] 04-16-2024 07:31-0400 Diastolic blood pressure 84 mm[Hg] Mauro Zavalaa DO Work Phone: [employer] 04-16-2024 07:31-0400 Heart rate 64 /min Mauro Zavalaa DO Work Phone: [employer] 04-16-2024 07:31-0400 SaO2% (BldA) [Mass fraction] 96 % Mauro Zavalaa DO Work Phone: [employer] 04-16-2024 07:31-0400 Systolic blood pressure 144 mm[Hg] Mauro Palominoanne mariea DO Work Phone: [facility] [employer] 02-24-2024 15:05-0400 Diastolic blood pressure 82 mm[Hg] [facility] [employer] 02-24-2024 15:05-0400 Heart rate 77 /min [facility] [employer] 02-24-2024 15:05-0400 SaO2% (BldA) [Mass fraction] 98 % [facility] [employer] 02-24-2024 15:05-0400 Systolic blood pressure 124 mm[Hg] [facility] Schedule [facility] [employer] 01-27-2024 09:06-0400 Diastolic blood pressure 92 mm[Hg] Mauro Tomlinson DO Work Phone: [facility] [employer] 01-27-2024 09:06-0400 Heart rate 72 /min Mauro Tomlinson DO Work Phone: [facility] [employer] 01-27-2024 09:06-0400 Systolic blood pressure 144 mm[Hg] Mauro Tomlinson DO Work Phone: [facility] [employer] 01-27-2024 08:27-0400 Body height 162.6 cm Mauro Tomlinson DO Work Phone: [facility] [employer] 01-27-2024 08:27-0400 Body mass index (BMI) [Ratio] 27.64 kg/m2 Mauro Tomlinson DO Work Phone: [facility] [employer] 01-27-2024 08:27-0400 Body temperature 97 [degF] Mauro Tomlinson DO Work Phone: [facility] [employer] 01-27-2024 08:27-0400 Body weight 73.03 kg Mauro Tomlinson DO Work Phone: [facility] [employer] 01-27-2024 08:27-0400 SaO2% (BldA) [Mass fraction] 96 % Mauro Tomlinson DO Work Phone: [facility] [employer] 01-19-2024 08:32-0400 Diastolic blood pressure 79 mm[Hg] Ryan Barbosa MD Work Phone: [facility] 01-19-2024 08:32-0400 Systolic blood pressure 123 mm[Hg] Ryan Barbosa MD Work Phone: [facility] 01-19-2024 08:10-0400 Body height 163.5 cm Ryan Barbosa MD Work Phone: [facility] 01-19-2024 08:10-0400 Body mass index (BMI) [Ratio] 27.38 kg/m2 Ryan Barbosa MD Work Phone: [facility] 01-19-2024 08:10-0400 Body weight 73.2 kg Ryan Barbosa MD Work Phone: [facility] 01-19-2024 08:10-0400 Heart rate 59 /min Ryan Barbosa MD Work Phone: [facility] 01-19-2024 08:10-0400 SaO2% (BldA) [Mass fraction] 96 % Ryan Barbosa MD Work Phone: [facility] 11-25-2023 09:33-0400 Body height 165.1 cm Yumi Colón MD Work Phone: [facility] 11-25-2023 09:33-0400 Body mass index (BMI) [Ratio] 27.46 kg/m2 Yumi Colón MD Work Phone: [facility] [employer] 11-25-2023 09:33-0400 Body weight 74.84 kg Yumi Colón MD Work Phone: [facility] [employer] 11-25-2023 09:33-0400 Diastolic blood pressure 81 mm[Hg] Yumi Colón MD Work Phone: [facility] [employer] 11-25-2023 09:33-0400 Heart rate 64 /min Yumi Colón MD Work Phone: [facility] [employer] 11-25-2023 09:33-0400 Systolic blood pressure 131 mm[Hg] Yumi Colón MD Work Phone: [facility] [employer] 07-25-2023 11:32-0500 Diastolic blood pressure 86 mm[Hg] Mauro Tomlinson DO Work Phone: [facility] [employer] 07-25-2023 11:32-0500 Heart rate 68 /min Mauro Tomlinson DO Work Phone: [facility] [employer] 07-25-2023 11:32-0500 Systolic blood pressure 136 mm[Hg] Mauro Tomlinson DO Work Phone: [facility] [employer] 07-25-2023 10:41-0500 Body height 165.1 cm Mauro Tomlinson DO Work Phone: [facility] [employer] 07-25-2023 10:41-0500 Body mass index (BMI) [Ratio] 27.46 kg/m2 Mauro Tomlinson DO Work Phone: [facility] [employer] 07-25-2023 10:41-0500 Body temperature 97.3 [degF] Mauro Tomlinson DO Work Phone: [facility] [employer] 07-25-2023 10:41-0500 Body weight 74.84 kg Mauro Tomlinson DO Work Phone: [facility] [employer] 07-25-2023 10:41-0500 SaO2% (BldA) [Mass fraction] 97 % Mauro Tomlinson DO Work Phone: [facility] [employer] 01-16-2023 07:48-0400 Body height 165.1 cm Rich Santizo PA-C Work Phone: [facility] [employer] 01-16-2023 07:48-0400 Body mass index (BMI) [Ratio] 27.46 kg/m2 Rich Santizo PA-C Work Phone: [facility] [employer] 01-16-2023 07:48-0400 Body temperature 97.7 [degF] Rich Santizo PA-C Work Phone: [facility] [employer] 01-16-2023 07:48-0400 Body weight 74.84 kg Rich Santizo PA-C Work Phone: [facility] [employer] 01-16-2023 07:48-0400 Diastolic blood pressure 75 mm[Hg] Rich Santizo PA-C Work Phone: [facility] [employer] 01-16-2023 07:48-0400 Heart rate 67 /min Rich Santizo PA-C Work Phone: [facility] 01-16-2023 07:48-0400 SaO2% (BldA) [Mass fraction] 95 % Rich Santizo PA-C Work Phone: [facility] 01-16-2023 07:48-0400 Systolic blood pressure 118 mm[Hg] Rich Santizo PA-C Work Phone: [facility] 07-01-2022 11:34-0500 Body height 163.7 cm Ryan Barbosa MD Work Phone: [facility] 07-01-2022 11:34-0500 Body weight 73.12 kg Ryan Barbosa MD Work Phone: [facility] 07-01-2022 11:34-0500 Diastolic blood pressure 81 mm[Hg] Ryan Barbosa MD Work Phone: [facility] 07-01-2022 11:34-0500 Heart rate 69 /min Ryan Barbosa MD Work Phone: [facility] 07-01-2022 11:34-0500 Respiratory rate 16 /min Ryan Barbosa MD Work Phone: [facility] 07-01-2022 11:34-0500 SaO2% (BldA) [Mass fraction] 99 % Ryan Barbosa MD Work Phone: [facility] 07-01-2022 11:34-0500 Systolic blood pressure 139 mm[Hg] Ryan Barbosa MD Work Phone: [facility] Encounters Encounter Date Encounter Type Care Provider Facility Start: 06-17-2025 ambulatory Doris Fast Facility:[facility] Start: 06-02-2025 ambulatory Doris Fast Facility:[facility] Start: 05-26-[address] [facility] Facility: [facility] Start: 05-10-2025 End: 05-10-2025 Refill Mauro Tomlinson DO Work Phone: [facility] Start: 03-22-2025 ambulatory RYAN BARBOSA Facility:[facility] Start: 03-22-2025 End: 03-22-2025 Subsequent hospital visit by physician [facility] Radiology Comment on above: Premature menopause [E28.319] Start: 03-07-2025 End: 03-08-2025 Refill Mauro Jeffery Davi SHOOK Work Phone: [facility] Start: 03-06-2025 End: 03-06-2025 Patient encounter procedure [facility] ([facility]) Research Comment on above: Examination of parti cipant in clinical trial (Primary Dx) Start: 03-06-2025 End: 03-06-2025 ambulatory [facility] Research Coordinator Research Comment on above: Research ([id number]) Start: 03-06-2025 Patient encounter procedure [facility] Start: 03-02-2025 End: 03-02-2025 ambulatory RYAN BARBOSA Facility:[facility] Start: 02-15-2025 End: 02-15-2025 Refill Ryan Barbosa MD Work Phone: Endocrinology Comment on above: Refill Request Start: 02-03-2025 End: 02-03-2025 Refill Ryan Barbosa MD Work Phone: Endocrinology Comment on above: Refill Request Start: 01-20-2025 End: 01-20-2025 Follow-up encounter Ryan Barbosa MD Work Phone: [facility] Provider Adult Start: 01-19-2025 End: 01-19-2025 Patient encounter procedure Ryan Barbosa MD Work Phone: Endocrinology Comment on above: Postoperative hypoth yroidism (Primary Dx); Hypercholesterolemia; Hypertension, unspecified type; Osteopenia, unspecified location; Premature menopause Start: 01-19-2025 End: 01-19-2025 ambulatory RYAN BARBOSA Facility:[facility] Start: 11-30-2024 End: 11-30-2024 Patient encounter procedure Yumi Colón MD Work Phone: [facility] Work Phone: Start: 11-30-2024 End: 11-30-2024 Periodic preventive med est patient 65yrs& older Yumi Colón MD Work Phone: [facility] Obstetrics and Gynecology [facility] Comment on above: Well woman exam with routine gynecological exam (Primary Dx); Encounter for screening mammogram for malignant neoplasm of breast Start: 11-30-2024 End: 11-30-2024 ambulatory [facility] Start: 11-30-2024 End: 11-30-2024 Encounter for gynecological examination (general) (routine) without abnormal findings [facility] Start: 10-31-2024 End: 11-01-2024 Refill Ryan Barbosa MD Work Phone: Endocrinology Comment on above: Refill Request Start: 09-14-2024 End: 09-14-2024 Refill Mauro Jeffery Davi DO Work Phone: [facility] Start: 09-03-2024 End: 09-03-2024 Refill Mauro Gil Davi DO [facility] Comment on above: Sinus congestion Start: 05-18-2024 End: 05-18-2024 Subsequent hospital visit by physician Yumi Colón MD Work Phone: [facility] Comment on above: Encounter for screen ing mammogram for malignant neoplasm of breast Start: 05-18-2024 End: 05-18-2024 ambulatory [facility] Start: 05-17-2024 End: 05-17-2024 Orders Only Mauro Palominoanne mariereji DO Work Phone: [facility] Start: 05-13-2024 End: 05-13-2024 Clinical Support [facility] Fp Schedule [facility] Comment on above: Essential hypertensi on Start: 05-10-2024 End: 05-10-2024 Office outpatient new 30 minutes Samy Teran MD Work Phone: [facility] Orthopedics [facility] Comment on above: Acute pain of right shoulder; Osteoarthritis of right shoulder, unspecified osteoarthritis type Start: 04-27-2024 End: 04-27-2024 Telephone encounter Mauro Gil Davi DO Work Phone: [facility] Comment on above: Referral (Dr Iverson) Start: 04-16-2024 End: 04-21-2024 Telephone encounter Mauro Gil Davi SHOOK Work Phone: [facility] Comment on above: Appointment (Resched ule nurse visit) Start: 04-16-2024 End: 04-16-2024 Subsequent hospital visit by physician Mauro Jeffery Davi SHOOK Work Phone: [facility] Radiology Comment on above: Acute pain of right shoulder Start: 04-16-2024 End: 04-16-2024 Office outpatient visit 25 minutes Mauro Tomlinson DO Work Phone: [facility] Comment on above: Essential hypertensi on (Primary Dx); Snoring; Acute pain of right shoulder; Hypercholesterolemia Start: 03-14-2024 End: 03-14-2024 Chart abstracting Cornelius Jeffrey Research Coordinator Work Phone: Neurology Comment on above: Informed Consent (IR B [id number]) Start: 03-14-2024 End: 03-14-2024 ambulatory Laure Briggs Research Coordinator Neurology Comment on above: Informed Consent (IR B [id number]) Start: 03-14-2024 End: 03-14-2024 Patient encounter procedure Morenita Hung 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[employer] Work Phone: Neurology Comment on above: Research exam (Prima ry Dx) Start: 03-14-2024 End: 03-14-2024 Patient encounter status 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 Hung 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.[employer] Work Phone: [facility] Work Phone: Start: 02-24-2024 End: 02-24-2024 Clinical Support [facility] Fp Schedule [facility] Family Medicine Comment on above: Labile essential hyp ertension Start: 01-27-2024 End: 01-27-2024 Office outpatient visit 15 minutes Mauro Tomlinson DO Work Phone: [facility] Family Medicine Comment on above: Labile essential hyp ertension (Primary Dx); Hypercholesterolemia; Postoperative primary hypothyroidism Start: 01-20-2024 Telephone encounter Ryan Barbosa MD Work Phone: Endocrinology Comment on above: Results Start: 01-19-2024 End: 01-19-2024 Patient encounter procedure Ryan Barbosa MD Work Phone: Endocrinology Comment on above: Postoperative hypoth yroidism (Primary Dx); Osteopenia, unspecified location; Vitamin D deficiency; Hypercholesterolemia; Hypertension, unspecified type Start: 12-01-2023 Refill Ryan Barbosa MD Work Phone: Endocrinology Comment on above: Refill Request Start: 12-01-2023 Refill Ryan Barbosa MD Work Phone: Endocrinology Comment on above: Refill Request Start: 11-25-2023 End: 11-25-2023 Patient encounter procedure Yumi Colón MD Work Phone: [facility] [employer] Work Phone: Start: 11-25-2023 End: 11-25-2023 Periodic preventive med est patient 65yrs& older Yumi Colón MD Work Phone: [facility] Comment on above: Women's annual routi ne gynecological examination (Primary Dx); Encounter for screening mammogram for malignant neoplasm of breast Start: 07-29-2023 Refill Mauro pedroza DO Work Phone: [facility] Family Medicine Comment on above: Sinus congestion Start: 07-25-2023 End: 07-25-2023 Office outpatient visit 25 minutes Mauro Tomlinson DO Work Phone: [facility] Family Medicine Comment on above: Hypercholesterolemia (Primary Dx); Cough secondary to angiotensin converting enzyme inhibitor (DEVON-I); Labile essential hypertension; Primary hypothyroidism; Vitamin D deficiency; Osteopenia, unspecified location Start: 04-28-2023 Refill Mauro pedroza DO Work Phone: [facility] Comment on above: Sinus congestion Start: 04-12-2023 Refill Mauro pedroza DO Work Phone: [facility] Comment on above: Sinus congestion Start: 01-24-2023 Refill Mauro pedroza DO Work Phone: [facility] Comment on above: Sinus congestion Start: 01-16-2023 End: 01-16-2023 Office outpatient visit 25 minutes Rich Santizo PA-C Work Phone: [facility] Comment on above: Essential hypertensi on (Primary Dx); Hypercholesterolemia; Screening for diabetes mellitus; Chest pressure; Statin intolerance; Polyp of ascending colon, unspecified type Start: 12-30-2022 Refill Keshawn garcía DO Work Phone: [facility] Start: 11-29-2022 Refill Ryan Barbosa MD Work Phone: Endocrinology Comment on above: Refill Request Start: 11-16-2022 ambulatory Maria Luisa Palomo RN [facility] Clinical Communication Start: 11-16-2022 Patient encounter procedure Maria Luisa diaz RN [facility] Clinical Communication Start: 09-19-2022 Telephone encounter Keshawn long DO Work Phone: [facility] Comment on above: notes for colonoscop y Start: 09-06-2022 Telephone encounter Keshawn long DO Work Phone: [facility] Comment on above: Referral Start: 07-01-2022 End: 07-01-2022 Patient encounter procedure Ryan Barbosa MD Work Phone: Endocrinology Comment on above: Postoperative hypoth yroidism (Primary Dx); Vitamin D deficiency; Osteopenia, unspecified location Start: 06-07-2022 Telephone encounter Keshawn long DO Work Phone: [facility] Comment on above: Medication Problem ( HYDROcodone-acetaminophen ([place]) 5-325 MG tablet //) Start: 02-13-2022 End: 02-13-2022 Patient encounter procedure Tc Morales [facility], [facility] Start: 10-18-2021 End: 10-18-2021 Patient encounter procedure Tc Morales [facility], [facility] Start: 04-03-2021 End: 04-03-2021 Subsequent hospital visit by physician Keshawn French DO Work Phone: [facility] Comment on above: Arrived Start: 11-10-2020 End: 11-10-2020 Subsequent hospital visit by physician Kel Collazo MD Work Phone: [facility] X-[facility] Start: 07-13-2020 End: 07-13-2020 Subsequent hospital visit by physician Keshawn French Work Phone: [facility] Comment on above: Chronic pain of left ankle Start: 07-19-2019 End: 07-19-2019 Subsequent hospital visit by physician Keshawn French DO Work Phone: [facility] Comment on above: Pain of right thumb; Digital mucinous cyst Start: 04-15-2019 End: 04-15-2019 Subsequent hospital visit by physician Keshawn French Work Phone: [facility] Comment on above: Arrived Procedures Date Procedure Procedure Detail Performing Clinician Start: 03-22-2025 BD DXA TRABECULAR KYLIE NE SCORE (TBS) Ryan Barbosa MD Work Phone: Start: 03-22-2025 Dxa bone density denice dy 1/> sites axial skel Ryan Barbosa MD Work Phone: Start: 03-02-2025 Lipid 1996 panel - S mitchell or Plasma [facility] Research Coordinator Start: 01-19-2025 Lipid 1996 panel - S mitchell or Plasma Ryan Barbosa MD Work Phone: Start: 01-19-2025 Thyrotropin [Units/v olume] in Serum or Plasma Mauro Tomlinson DO Work Phone: Start: 05-18-2024 End: 05-18-2024 Mammography Yumi Colón MD Work Phone: Start: 01-19-2024 Lipid 1996 panel - S mitchell or Plasma Ryan Barbosa MD Work Phone: Start: 01-19-2024 Thyrotropin [Units/v olume] in Serum or Plasma Mauro Tomlinson DO Work Phone: Start: 07-25-2023 Lipid 1996 panel - S mitchell or Plasma Mauro Tomlinson DO Work Phone: Start: 07-25-2023 Thyrotropin [Units/v olume] in Serum or Plasma Mauro Tomlinson DO Work Phone: Start: 01-16-2023 Ecg routine ecg w/le ast 12 lds w/i&r Rich Santizo PA-C Work Phone: Start: 12-10-2022 Mammography Keshawn cruz DO Work Phone: Start: 11-28-2022 Colonoscopy Keshawn cruz DO Work Phone: Start: 07-18-2022 Lipid 1996 panel - S mitchell or Plasma Keshawn French DO Work Phone: Start: 07-01-2022 Thyrotropin [Units/v olume] in Serum or Plasma Keshawn French DO Work Phone: Start: 02-13-2022 Computed tomography of abdomen and pelvis with intravenous contrast Start: 10-18-2021 Diagnostic radiograp hy of abdomen Start: 04-03-2021 End: 04-03-2021 Screening digital breast tomosynthesis bi Keshawn French DO Work Phone: Start: 07-25-2020 Lipid 1996 panel - S mitchell or Plasma Ryan Barbosa MD Work Phone: Start: 07-13-2020 Radex ankle complete minimum 3 views Keshawn French Work Phone: Start: 04-27-2019 Microscopic observat ion [Identifier] in Cervix by Cyto stain Keshawn French DO Work Phone: Start: 09-29-2008 Mammography Ryan sharma MD Work Phone: Start: 03-05-2008 Colonoscopy Ryan sharma MD Work Phone: Plan of Treatment Date Care Activity Detail Author Start: 10-01-2034 DTaP/Tdap/Td Vaccine s (2 - Td or Tdap) DTaP/Tdap/Td Vaccines (2 - Td or Tdap) [facility] Start: 10-01-2034 Urine microalbumin profile DTaP,Tdap,Td Vaccine (2 - Td or Tdap) [facility] Start: 11-28-2032 Screening for malign ant neoplasm of colon [facility] Start: 03-02-2030 Lipid panel Lipid Screening [facility] Start: 01-19-2030 Lipid panel Lipid Screening [facility] Start: 01-18-2029 Lipid panel Lipid Screening [facility] Start: 07-25-2028 Lipid panel Lipid Panel [facility] Start: 01-20-2028 Diabetes Screening Diabetes Screenin [facility] Start: 11-29-2027 Screening for malign ant neoplasm of colon [facility] Start: 07-18-2027 Lipid panel Lipid Panel [facility] Start: 03-03-2027 Colon cancer screen colonoscopy Colon cancer screen colonoscopy [place], [place] Start: 03-03-2027 Screening for malign ant neoplasm of colon Colon cancer screen colonoscopy [place], [place] Start: 01-18-2027 Diabetes Screening Diabetes Screenin [facility] Start: 01-19-2026 Thyroid stimulating hormone measurement TSH Level [facility] Start: 01-19-2026 End: 01-19-2026 Patient encounter procedure 01/19/2026 8:40 AM EDT Office Visit Endocrinology [address] [place] [id number] Ryan Barbosa MD [address] [place] [id number] one year follow up Endocrinology Comment on above: one year follow up Start: 12-06-2025 End: 12-06-2025 Patient encounter procedure 12/06/2025 10:00 AM EDT Office Visit [facility] Obstetrics and Gynecology - [address] [place] [address] Yumi Colón MD [address] [place], [place] [id number] [facility] Obstetrics and Gynecology [facility] Start: 07-25-2025 Lipid panel [facility] Start: 05-18-2025 Screening for malign ant neoplasm of breast [facility] Start: 03-28-2025 COVID-19 Vaccine ( season) COVID-19 Vaccine ( season) [facility] Start: 03-28-2025 Influenza vaccination Influenza Vacc ine (#1) [facility] Start: 03-22-2025 End: 03-22-2025 Patient encounter procedure 03/22/2025 8:30 AM EDT Appointment Radiology [address] [place] [address] Premature menopause [E28.319] Radiology Comment on above: Premature menopause [E28.319] Start: 03-16-2025 End: 03-16-2025 Patient encounter procedure 03/16/2025 8:20 AM EDT Office Visit [facility] [address] [place] [address] Mauro Tomlinson DO [address] [place] [address] [facility] Start: 03-06-2025 End: 03-06-2025 Patient encounter procedure Research Comment on above: #4 YR 2 #[id number] Start: 03-02-2025 End: 03-02-2025 ambulatory 03/02/2025 8:15 AM EDT Results Only [facility] [address] [place] [address] [facility] Start: 01-27-2025 End: 01-27-2025 Patient encounter procedure [facility] Start: 01-19-2025 End: 04-20-2025 Thyroxine (T4) free [Mass/volume] in Serum or Plasma [facility] Work Phone: Comment on above: Expected: 01/19/2025 , Expires: 04/20/2025 Start: 01-19-2025 End: 01-19-2025 Patient encounter procedure 01/19/2025 8:20 AM EDT Office Visit Endocrinology [address] [place] [address] [address] [place] [address] Ryan Barbosa MD [address] [place] [address] [address] [place] [address] Postoperative Hypothyroidism Endocrinology Comment on above: Postoperative Hypoth yroidism Start: 01-18-2025 BP Controlled (<130/80) BP Controlle d (<130/80) [facility] Start: 01-18-2025 Thyroid stimulating hormone measurement TSH Level [facility] Start: 11-30-2024 End: 01-30-2026 DBT Breast - bilateral screening Bilateral screening mammogram with tomosynthesis Imaging Routine Encounter for screening mammogram for malignant neoplasm of breast Expected: 11/30/2024, Expires: 01/30/2026 [facility] Work Phone: Comment on above: Expected: 11/30/2024 , Expires: 01/30/2026 Start: 11-30-2024 End: 11-30-2024 Patient encounter procedure [facility] Start: 11-24-2024 Covid-19 Vaccine () Covid-19 Vaccine () [facility] Start: 07-28-2024 Advance Directive Discussion Advance Directive Discussion [facility] Start: 07-26-2024 End: 07-26-2024 Patient encounter procedure 07/26/2024 7:00 AM EST Office Visit [facility] Family Medicine [address] [place] [address] Mauro Tomlinson DO [address] [place] [address] [facility] Start: 07-25-2024 Thyroid stimulating hormone measurement TSH Level [facility] Start: 07-19-2024 Diabetes Screening Diabetes Screenin g [facility] Start: 05-18-2024 End: 05-18-2024 Patient encounter procedure 05/18/2024 1:00 PM EDT Appointment [facility] [address] [place] [address] Yumi Colón MD [address] [place], [place] [address] [facility] Start: 05-13-2024 End: 05-13-2024 Clinical Support 05/13/2024 1:40 PM EDT Clinical Support [facility] [address] [place] [address] [facility] Start: 04-29-2024 Lipid panel Lipid screen [place], [place] Start: 04-29-[address] Lipid screen [facility] Work Phone: Start: 04-27-2024 Cervical cancer screen Cervical canc er screen [facility] Work Phone: Start: 04-27-2024 Screening for malign ant neoplasm of cervix [place], [place] Start: 04-16-2024 End: 04-16-2025 XR Clavicle - right Views [facility] Comment on above: Expected: 04/16/2024 , Expires: 04/16/2025 Once for 1 Occurrenc es starting 04/16/2024 until 04/16/2024 Start: 04-16-2024 End: 04-16-2025 XR Shoulder - right 2 Views [facility] Work Phone: Comment on above: Expected: 04/16/2024 , Expires: 04/16/2025 Once for 1 Occurrenc es starting 04/16/2024 until 04/16/2024 Start: 03-28-2024 COVID-19 Vaccine () COVID-19 Vaccine () [facility] Start: 03-28-2024 COVID-19 Vaccine ( season) COVID-19 Vaccine () [facility] Start: 03-28-2024 Influenza vaccination [facility] Start: 02-24-2024 End: 02-24-2024 Clinical Support 02/24/2024 3:00 PM EDT Clinical Support [facility] Medicine [address] [place] [address] [facility] Start: 01-27-2024 End: 01-27-2024 Patient encounter procedure 01/27/2024 8:30 AM EDT Office Visit [facility] Medicine [address] [place] [address] Mauro Tomlinson DO [address] [place] [address] [facility] Start: 01-19-2024 End: 04-19-2024 25-hydroxyvitamin D3 [Mass/volume] in Serum or Plasma [facility] Comment on above: Expected: 01/19/2024 , Expires: 04/19/2024 Start: 01-19-2024 End: 04-19-2024 Thyroxine (T4) free [Mass/volume] in Serum or Plasma [facility] Work Phone: Comment on above: Expected: 01/19/2024 , Expires: 04/19/2024 Start: 01-19-2024 End: 01-19-2024 Patient encounter procedure 01/19/2024 8:20 AM EDT Office Visit Endocrinology [address] [place] [phone] Ryan Barbosa MD [address] [place] [phone] Annual Thyroid Check Endocrinology Comment on above: Annual Thyroid Check Start: 12-11-2023 Screening for malign ant neoplasm of breast [facility] Start: 11-25-2023 End: 01-24-2025 DBT Breast - bilateral screening Bilateral screening mammogram with tomosynthesis Imaging Routine Encounter for screening mammogram for malignant neoplasm of breast Expected: 11/25/2023, Expires: 01/24/2025 [facility] [employer] Work Phone: Comment on above: Expected: 11/25/2023 , Expires: 01/24/2025 Start: 11-25-2023 End: 11-25-2023 Patient encounter procedure [facility] Start: 09-13-2023 Covid-19 Vaccine () Covid-19 Vaccine () [facility] Start: 07-28-2023 Advance Directive Discussion Advance Directive Discussion [facility] Start: 07-28-2023 Behavioral Health Screening Behavioral Health Screening [facility] Start: 07-17-2023 End: 07-17-2023 Patient encounter procedure [facility] Start: 07-01-2023 Thyroid stimulating hormone measurement TSH Level [facility] Start: 04-03-2023 Screening for malign ant neoplasm of breast Breast cancer screen [facility] Work Phone: Start: 03-28-2023 Covid-19 Vaccine () Covid-19 Vaccine () [facility] Start: 03-28-2023 Influenza vaccination [facility] Start: 03-09-2023 Lipid screen Lipid screen [facility] [place] Start: 01-16-2023 End: 01-16-2024 Comprehensive metabolic 1998 panel - Serum or Plasma Comprehensive metabolic panel Lab Routine Screening for diabetes mellitus Essential hypertension Expected: 01/16/2023 (Approximate), Expires: 01/16/2024 [facility] [employer] Work Phone: Comment on above: Expected: 01/16/2023 (Approximate), Expires: 01/16/2024 Start: 01-16-2023 End: 01-16-2023 Patient encounter procedure 01/16/2023 Office Visit Family Medicine Rich Santizo PA-C [address] [place] [address] [facility] Start: 11-19-2022 End: 11-19-2022 Patient encounter procedure 11/19/2022 Office Visit Obstetrics and Gynecology Yumi Colón MD [address] [place] [address], [address] [place] [address] [facility] Start: 07-28-2022 ADVANCE DIRECTIVE DISCUSSION ADVANCE DIRECTIVE DISCUSSION [facility] Start: 07-28-2022 DEPRESSION ASSESSMENT DEPRESSION ASS ESSMENT [facility] Start: 07-19-2022 Pneumococcal Vaccine : 65+ (2 of 2 - PCV) Pneumococcal Vaccine: 65+ (2 of 2 - PCV) [facility] Start: 04-27-2022 Screening for malign ant neoplasm of cervix Pap smear [facility] Work Phone: Start: 04-03-2022 Screening for malign ant neoplasm of breast [facility] Start: 03-28-2022 Influenza vaccination [facility] Start: 03-26-2022 COVID-19 VACCINE (5 - Booster for Moderna series) COVID-19 VACCINE (5 - Booster for Moderna series) [facility] Start: 03-26-2022 COVID-19 Vaccine (5 - Moderna series) COVID-19 Vaccine (5 - Moderna series) [facility] Start: 07-28-2021 ADVANCE DIRECTIVE DISCUSSION ADVANCE DIRECTIVE DISCUSSION [facility] Start: 07-28-2021 DEPRESSION ASSESSMENT DEPRESSION ASS ESSMENT [facility] Start: 07-25-2021 Creatinine measurement Creatinine mo nitoring [facility] Work Phone: Start: 07-25-2021 Potassium monitoring Potassium monit oring [facility] Work Phone: Start: 07-24-2021 End: 07-24-2021 Patient encounter procedure 07/24/2021 Office Visit Family Medicine Keshawn French, DO [address] [place], [place] [phone] [facility] Start: 2021 PNEUMOCOCCAL: 65+ (1 - PCV) PNEUMOCOCCAL: 65+ (1 - PCV) [facility] Start: 06-27-2021 Medicare Annual Wellness Visit Medicare Annual Wellness Visit [facility] Start: 04-15-2021 Breast cancer screen [facility] Work Phone: Start: 04-15-2021 Screening for malign ant neoplasm of breast Breast cancer screen [place], [place] Start: 03-28-2021 Influenza vaccination [facility] Work Phone: Start: 11-24-2020 End: 11-24-2020 Patient encounter procedure 11/24/2020 Appointment [facility] Start: 07-25-2020 End: 07-25-2020 Office Visit 07/25/2020 Office Visit Family Medicine Keshawn French, DO [address] [place], [place] [phone] [facility] Start: 06-17-2020 DIABETES SCREEN DIABETES SCREEN [facility] Start: 04-29-2020 Creatinine measurement Creatinine mo nitoring [place], [place] Start: 04-29-2020 Potassium monitoring Potassium monit [place]ing [place] Start: 03-28-2020 Influenza vaccination Flu vaccine (# 1) [place] Start: 04-27-2019 End: 04-27-2019 Office Visit 04/27/2019 Office Visit Obstetrics and Gynecology Yumi Colón MD [address] [place] [address], [address] [place], [place] [id number] [facility] Start: 03-28-2019 Influenza vaccination Flu vaccine (# 1) [place] Start: 02-20-2019 Breast cancer screen [facility] [place] [place] Start: 03-05-2018 Screening for malign ant neoplasm of colon [facility] Start: 08-30-2017 Cervical cancer screen Cervical canc er screen [place], [place] Start: 2016 RSV Vaccine (1 - 1-d ose 60+ series) RSV Vaccine (1 - 1-dose 60+ series) [facility] Start: 03-05-2015 LIPID SCREEN LIPID SCREEN [facility] Start: 09-29-2009 Mammography MAMMOGRAM [facility] Start: 03-05-2009 Colonoscopy COLONOSCOPY [facility] Start: 03-05-2009 COLORECTAL CANCER SCREENING COLORECTAL CANCER SCREENING [facility] Start: 03-05-2009 Screening for malign ant neoplasm of colon [facility] Start: 2006 Shingles Vaccine (1 of 2) Shingles Vaccine (1 of 2) [place] Start: 2006 SHINGRIX VACCINE (1 of 2) SHINGRIX VACCINE (1 of 2) [facility] Start: 2001 COLOGUARD (FIT-DNA) COLOGUARD (FIT-D NA) [facility] Start: [address] COLONOGRAPHY [facility] Start: 2001 FECAL OCCULT BLOOD FECAL OCCULT BLOO D [facility] Start: 2001 Screening for malign ant neoplasm of colon [facility] Start: 2001 SIGMOIDOSCOPY SIGMOIDOSCOPY [facility] Start: 1975 DTaP/Tdap/Td vaccine (1 - Tdap) DTaP/Tdap/Td vaccine (1 - Tdap) [place] Start: 1975 DTaP/Tdap/Td Vaccine s (1 - Tdap) DTaP/Tdap/Td Vaccines (1 - Tdap) [facility] Start: 1975 Urine microalbumin profile [facility] Start: 1974 ANNUAL PCP TEAM DIRECTOR [employer] DISEASE VISIT ANNUAL PCP TEAM CHRONIC DISEASE VISIT [facility] Start: 1974 Anxiety Screening Anxiety Screening [facility] Start: 1974 Depression Screening Depression Scre ening [facility] Start: 1974 Diabetes mellitus screening Diabetes Screening [facility] Start: 1974 HEPATITIS C SCREENING HEPATITIS C [facility] Start: 1974 Hepatitis C screening Hepatitis C [facility] Start: 1971 HIV screen HIV screen [place] Start: 1971 HIV screening [facility] screen [facility] [place] Start: 1968 Depression Screening Depression Scre ening [facility] Start: 1967 DTaP/Tdap/Td vaccine (1 - Tdap) DTaP/Tdap/Td vaccine (1 - Tdap) [facility] Work Phone: Start: 1956 Hepatitis B Vaccines (1 of 3 - 3-dose series) Hepatitis B Vaccines (1 of 3 - 3-dose series) [facility] Start: 1956 Hepatitis C screen Hepatitis C joaquim ward [place], [place] Start: 1956 Hepatitis C screening Hepatitis C kenny calero [place], [place] Start: 1956 Medicare Annual Wellness (AWV) Medicare Annual Wellness (AWV) [facility] Start: 1956 Screening for malign ant neoplasm of colon [facility] Start: 1956 Thyroid stimulating hormone measurement TSH testing [facility] Work Phone: Start: 1956 TSH Qn TSH testing [place], [place] Start: 1956 TSH testing TSH testing [place] End: 02-18-2026 BD DXA TRABECULAR BONE SCORE (TBS) BD DXA TRABECULAR BONE SCORE (TBS) Radiology Routine Premature menopause 1 Occurrences starting 01/19/2025 until 02/18/2026 [facility] Comment on above: 1 Occurrences starti ng 01/19/2025 until 02/18/2026 End: 02-18-2026 DXA Skeletal system.axial Views for bone density DXA-AXIAL SKELETON Radiology Routine Premature menopause 1 Occurrences starting 01/19/2025 until 02/18/2026 [facility] Comment on above: 1 Occurrences starti ng 01/19/2025 until 02/18/2026 End: 04-15-2019 Screening digital breast tomosynthesis bi Blanka Uriel Digital Screen Bilateral Imaging Routine Once for 1 Occurrences starting 04/15/2019 until 04/15/2019 [place] Comment on above: Once for 1 Occurrenc es starting 04/15/2019 until 04/15/2019 Screening digital breast tomosynthesis bi Blanka Uriel Digital Screen Bilateral Imaging Routine 04/15/2019 2:08 PM EDT [place] End: 11-10-2020 XR FINGER RIGHT (MIN 2 VIEWS) XR FINGER RIGHT (MIN 2 VIEWS) Imaging Routine Once for 1 Occurrences starting 11/10/2020 until 11/10/2020 [facility] Work Phone: Comment on above: Once for 1 Occurrenc es starting 11/10/2020 until 11/10/2020 XR FINGER RIGHT (MIN 2 VIEWS) XR FINGER RIGHT (MIN 2 VIEWS) Imaging Routine 11/10/2020 9:24 AM EDT [employer] Work Phone: End: 07-19-2019 XR HAND RIGHT (MIN 3 VIEWS) XR HAND RIGHT (MIN 3 VIEWS) Imaging Routine Pain of right thumb Digital mucinous cyst 1 Occurrences starting 07/19/2019 until 07/19/2019 [employer] Work Phone: Comment on above: 1 Occurrences starti ng 07/19/2019 until 07/19/2019 XR HAND RIGHT (MIN 3 VIEWS) XR HAND RIGHT (MIN 3 VIEWS) Imaging Routine Pain of right thumb Digital mucinous cyst 07/19/2019 1:35 PM EST [employer] Work Phone: Immunizations Immunization Date Immunization Notes Care Provider Fa rosalina 04-16-2024 Seasonal trivalent influenza vaccine, adjuvanted, preservative free Mauro Tomlinson DO Work Phone: [facility] [employer] 04-16-2024 influenza virus vacc ine, unspecified formulation Ryan Barbosa MD Work Phone: [facility] 06-26-2023 RSV, recombinant, protein subunit RSVpreF, adjuvant reconstituted, 0.5 mL, PF Mauro Tomlinson DO Work Phone: [facility] [employer] 05-13-2023 influenza virus vacc ine, unspecified formulation Mauro Tomlinson DO Work Phone: [facility] [employer] 05-13-2023 Influenza, Seasonal, Quadrivalent, Adjuvanted Mauro Tomlinson DO Work Phone: [facility] [employer] 07-18-2022 Pneumococcal Conjuga te PCV20, Pf (Prevnar 20) Maria Luisa Palomo RN [facility] [employer] 07-19-2021 pneumococcal polysaccharide vaccine, 23 valent Maria Luisa Palomo RN [facility] [employer] 04-27-2021 Influenza, High-dose Seasonal, Quadrivalent, Preservative Free Maria Luisa Palomo RN [facility] 04-27-2021 influenza virus vacc ine, unspecified formulation Keshawn French DO Work Phone: [facility] [employer] 05-03-2019 influenza, injectabl e, quadrivalent, contains preservative Keshawn French DO Work Phone: [facility] Work Phone: 11-28-2018 zoster vaccine recombinant Keshawn French DO Work Phone: [facility] [employer] 08-15-2018 zoster vaccine recombinant Keshawn French DO Work Phone: [facility] 08-22-2017 Zoster Vac Recomb Adjuvanted (SHINGRIX) 50 MCG SUSR Keshawn French [place], [place] 05-27-2016 influenza, injectabl e, quadrivalent, contains preservative Keshawn French [facility] Payers Date Payer Category Payer Self-pay [id number] 2022 Medicare supplementa l policy (as second payer) O MEDICARE SUPPLEMENT [id number] 2022 Medicare [id number] 2022 Unknown [id number] 2021 Medicare [id number] 2021 Medicare [id number] 2019 Private Health Insurance [id number] 2015 Private Health Insurance [id number] 2015 Private Health Insurance [facility] xxxxxxxxx 2015-Present [phone] [address] [place] [address] xxxxxxxxx [id number] Unknown [id number] Unknown [id number] Unknown [id number] Social History Date Type Detail Facility Start: 07-13-2020 End: 05-18-2024 Tobacco smoking status TNIS Never smoker [facility] Start: 07-13-2020 End: 05-18-2024 Tobacco use and exposure [facility] Start: 07-13-2020 End: 05-10-2025 Alcohol intake Current non-drinker of alcohol (finding) [employer] Work Phone: Start: 07-15-2019 History SDOH Alcohol Frequency 1 [employer] Work Phone: Start: 07-15-2019 History SDOH Social Connections Phone 5 [employer] Work Phone: Start: 07-15-2019 History SDOH Social Connections Get Together 3 [facility] Work Phone: Start: 07-15-2019 History SDOH Social Connections [facility] Work Phone: Start: 07-15-2019 History SDOH Physica l Activity MPS 6 [facility] Work Phone: Start: 07-15-2019 History SDOH IPV Fear 2 S [facility] Work Phone: Start: 1955 Sex Assigned At Not on file [facility] Start: 03-05-2018 End: 11-28-2024 Alcohol intake No [employer] Start: 06-21-2022 End: 01-16-2023 Exposure to SARS-CoV-2 (event) Not sure [facility] Start: 12-01-2020 End: 11-28-2024 Alcohol intake [facility] Start: 01-26-2016 [facility] ever smoked [facility] Work Phone: Start: 1955 Sex Assigned At Female W [facility] Work Phone: Start: 07-01-2022 End: 01-19-2025 Alcohol intake Not Asked [facility] Start: 06-28-2012 National Score (1-10 0), lower number is lower risk 66 [facility] Start: 02-25-2022 Sex Female (finding) [facility] Has the [employer], or [employer] threatened to shut off services in your home in past 12Mo No [facility] Do you belong to any clubs or organizations such as yarsani groups, unions, fraternal or athletic groups, or school groups? Yes [facility] Are you now , , , , never or living with a partner? [facility] How often to you hav e a drink containing alcohol? Monthly or less [facility] How many standard dr inks containing alcohol do you have on a typical day? 1 or 2 [facility] How often do you hav e 6 or more drinks on 1 occasion? Never [facility] Do you feel stress - tense, restless, nervous, or anxious, or unable to sleep at night because your mind is troubled all the time - these days [OSQ] Not at all [facility] (I/We) worried jory er (my/our) food would run out before (I/we) got money to buy more. Never true [facility] NEGATED: Highlighted rowStart: NINF History of tobacco use Passive smoker [facility] Functional Status Date Assessment Result Facility 04-14-2014 Are you deaf, or do you have serious difficulty hearing No 04/14/2014 2:18 PM Jaclyn Davies Ma No [facility] 04-14-2014 Are you blind, or do you have serious difficulty seeing, even when wearing glasses No 04/14/2014 2:18 PM Jaclyn Davies Ma No [facility] 04-14-2014 Do you have serious difficulty walking or climbing stairs No 04/14/2014 2:18 PM EDT Jaclyn Torres Ma [facility] 04-14-2014 Do you have difficul ty dressing or bathing No 04/14/2014 2:18 PM EDT Jaclyn Torres Ma [facility] 04-14-2014 Because of a physica l, mental, or emotional condition, do you have difficulty doing errands alone such as visiting a physician's office or shopping No 04/14/2014 2:18 PM EDT Jaclyn Torres Ma [facility] Mental Status Date Assessment Result Facility 04-14-2014 Because of a physica l, mental, or emotional condition, do you have serious difficulty concentrating, remembering, or making decisions No 04/14/2014 2:18 PM EDT Jaclyn Torres Ma [facility] Clinical Notes 03-05-2011 to 05-10-2025 Telephone Encounter - Johnna Manuel LPN - 05/10/2025 8:26 AM EDTTelephone Encounter - Johnna Manuel LPN - 05/10/2025 8:26 AM Amna Beltran RT(R) - 03/22/2025 8:30 AM EDTPatient Instructions Note Date & Type Note Facility 05-10-2025 Telephone encounter Note 05/13/24 last seen No future appointment [facility] 05-10-2025 Miscellaneous Notes 05/13/24 last seen No future appointment documented in this encounter [facility] 03-22-2025 History of Present illness Narrative Radiology Service Progress Note PATIENT NAME: Devin Chapman DATE OF SERVICE: March 22, 2025 TIME: 8:18 AM PATIENT IDENTITY VERIFICATION COMPLETED USING TWO (2) IDENTIFIERS: Name and Date of confirmed by patient verbally. FALL SCREENING: Has the patient had 2 falls in the last year or 1 fall with injury or currently using an Ambulatory Assistive Device (Walker, Cane, Wheelchair, Crutches, etc.)? No PATIENT GENDER DATA: Assigned female at . status: : No status: NO. PATIENT RELEVANT IMPLANT DATA REVIEWED: Not Applicable PATIENT PRESENTS WITH AN IMPLANTABLE OR ATTACHED BEER MAKER: No RADIOLOGY DEPARTMENT: Bone Density PERIPHERAL IV DATA: Not applicable SIGNED BY: ANCA Lewis) March 22, 2025 8:18 AM documented in this encounter [facility] 03-22-2025 Note HNO ID: [id number] Author: AMNA MEJIA RT (R) Service: Radiology Author Type: Technologist Type: Progress Notes Filed: 03/22/2025 08:18 Note Text: Radiology Service Progress Note PATIENT NAME: Devin Chapman DATE OF SERVICE: March 22, 2025 TIME: 8:18 AM PATIENT IDENTITY VERIFICATION COMPLETED USING TWO (2) IDENTIFIERS: Name and Date of confirmed by patient verbally. FALL SCREENING: Has the patient had 2 falls in the last year or 1 fall with injury or currently using an Ambulatory Assistive Device (Walker, Cane, Wheelchair, Crutches, etc.)? No PATIENT GENDER DATA: Assigned female at . status: : No status: NO. PATIENT RELEVANT IMPLANT DATA REVIEWED: Not Applicable PATIENT PRESENTS WITH AN IMPLANTABLE OR ATTACHED BEER MAKER: No RADIOLOGY DEPARTMENT: Bone Density PERIPHERAL IV DATA: Not applicable SIGNED BY: ANCA Lewis) March 22, 2025 8:18 AM [facility] 03-08-2025 Telephone encounter Note Recent Visits Date Type Provider Dept 04/16/24 Office Visit Mauro Tomlinson DO [facility] Showing recent visits within past 365 days and meeting all other requirements Future Appointments Date Type Provider Dept 03/16/25 Appointment DO Jovany Diaz [facility] Showing future appointments within next 90 days and meeting all other requirements Requested Prescriptions Pending Prescriptions Disp Refills losartan (Cozaar) 25 MG tablet [Pharmacy Med Name: losartan 25 mg tablet] 90 tablet 3 Sig: Take 1 tablet (25 mg) by mouth daily. \ Provider: Mauro Tomlinson DO Verified pharmacy: yes Verified day(s) supplied: yes Verified refill(s) needed (previous prescription showing no refills in chart): Yes Have you received any controlled medications from any other provider? N/A Overdue for visit: N/A If yes - patient scheduled? N/A Most recent labs completed in chart? N/A None [facility] 03-08-2025 Miscellaneous Notes Recent Visits Date Type Provider Dept 04/16/24 Office Visit Mauro Tomlinson DO [facility] Showing recent visits within past 365 days and meeting all other requirements Future Appointments Date Type Provider Dept 03/16/25 Appointment Mauro Tomlinson DO [facility] Showing future appointments within next 90 days and meeting all other requirements Requested Prescriptions Pending Prescriptions Disp Refills losartan (Cozaar) 25 MG tablet [Pharmacy Med Name: losartan 25 mg tablet] 90 tablet 3 Sig: Take 1 tablet (25 mg) by mouth daily. \ Provider: Mauro Tomlinson DO Verified pharmacy: yes Verified day(s) supplied: yes Verified refill(s) needed (previous prescription showing no refills in chart): Yes Have you received any controlled medications from any other provider? N/A Overdue for visit: N/A If yes - patient scheduled? N/A Most recent labs completed in chart? N/A None documented in this encounter [facility] 03-06-2025 History of Present illness Narrative DATE: March 06, 2025 PT. NAME: Devin Mclain Adela [facility]#: [id number] IRB [id number]. [facility] Brain Study (BS) Cuff Maker: Myra Moses MD, , Chapin Becker MD, Hack Driver: Shaina Costa and Email:[email or web address] Time: 1057 EKG/ECG was performed on patient. Patient tolerated procedure well. BP: 144/78 mmHg BP Site: left arm BP Position: sitting Cuff size: regular Pulse: 61 Resp: 12 SPO2: 96% Weight: 163 lb Height: 5ft 5in Have you received the Shingles Vaccine? Yes Age of first vaccination? 63 Year first vaccination was administered: 2017 Number of subsequent vaccinations: 0 Walk for 30 min in morning, floor core class Result of Physical Exam Body System Eyes: Normal ,blurry vision corrected with glasses Ears, Nose, Mouth and Throat: Abnormal ,finger rub not heard on right side Cardiovascular: Normal ,sinus bradycardia BPM 55 Respiratory: Normal Musculoskeletal: Normal Integumentary: Normal Handedness: Right hand Results of Mental Status Assessment Mental Assessments Attention: Abnormality Present: No Memory Working Memory: Abnormality Present: No Recent (Episodic) Memory: Abnormality Present: Yes ,1/3 spon; 2/3 with one clue Remote (Semantic) Memory: Abnormality Present: No Language Spontaneous Speech: Abnormality Present: No Comprehension: Abnormality Present: No Naming: Abnormality Present: No Repetition: Abnormality Present: No Reading: Abnormality Present: No Affect: Abnormality Present: No Craninal Nerve Assessment Visual Garcia: Normal EOM: Normal Nystagmus: Physiologic Pupils: Equal and reactive Ptosis: Absent Trigeminal: Normal CN VII: Normal CN VIII: Normal CN IX: Normal CN X: Normal CN XI: Normal CN XII: Normal Assessment of Motor and Bulk and Tones Motor Assessments Muscle bulk-global: Normal Muscle tone-global: Normal Motor Strength Assessment Shoulder flexion: Right 5 Left 5 Shoulder external rotation: Right 5 Left 5 Shoulder abduction: Right 5 Left 5 Shoulder adduction: Right 5 Left 5 Elbow flexion: Right 5 Left 5 Elbow extension: Right 5 Left 5 Wrist flexion: Right 5 Left 5 Wrist extension: Right 5 Left 5 Finger flexion/lock assembler: Right 5 Left 5 Flexor pollicis longus: Right 5 Left 5 Abductor pollicis brevis: Right 5 Left 5 Hip flexion: Right 5 Left 5 Hip extension: Right 5 Left 5 Hip abduction: Right 5 Left 5 Hip adduction: Right 5 Left 5 Knee flexion: Right 5 Left 5 Knee extension: Right 5 Left 5 Ankle eversion: Right 5 Left 5 Ankle inversion: Right 5 Left 5 Ankle plantar flexion: Right 5 Left 5 Ankle dorsiflexion: Right 5 Left 5 Extensor halluces longus: Right 5 Left 5 Flexor digitorum longus: Right 5 Left 5 Reflexes - MRC Grading Method Triceps: Right 1+ Left 1+ Biceps: Right 1+ Left 1+ Brachioradialis: Right 0 Left 0 Patellar: Right 2+ Left 2+ Achilles: Right 0 Left 0 Plantar: Right Downgoing Left Downgoing Weakness?: No Tremor: No Cerebellar/Coordination Assessment Fzkuan-hl-Ejnr: Abnormality present: No, Urki-tb-Aega: Abnormality present: No, Finger Tapping - Abnormality present: No Fist Open/Close - Abnormality present: No Pronation/Supination of the Hand - Abnormality present: No Toe Tapping - Abnormality present: No Heel Tapping - Abnormality present: No Gait Gait-global assessment: Normal Toe Walk: Normal Heel Walk: Normal Tandem Walk: Abnormal (mild difficulty- lost balance once) Romberg: Negative (pass) Sensory/Sensation Sensory System-globlal assessment: Normal Esteban Uribe PA-C documented in this encounter [facility] 03-06-2025 Note HNO ID: [id number] Author: ESTEBAN URIBE PA-C Service: ? Author Type: Physician Final Cleaner Type: Progress Notes Filed: 03/06/2025 11:32 Note Text: DATE: March 06, 2025 PT. NAME: Devin Chapman [facility]#: [id number] IRB [id number]. [facility] Brain Study (BS) Cuff Maker: Myra Moses MD, , Chapin Becker MD, Hack Driver: Shaina Costa and Email:[email or web address] Time: 1057 EKG/ECG was performed on patient. Patient tolerated procedure well. BP: 144/78 mmHg BP Site: left arm BP Position: sitting Cuff size: regular Pulse: 61 Resp: 12 SPO2: 96% Weight: 163 lb Height: 5ft 5in Have you received the Shingles Vaccine? Yes Age of first vaccination? 63 Year first vaccination was administered: 2017 Number of subsequent vaccinations: 0 Walk for 30 min in morning, floor core class Result of Physical Exam Body System Eyes: Normal ,blurry vision corrected with glasses Ears, Nose, Mouth and Throat: Abnormal ,finger rub not heard on right side Cardiovascular: Normal ,sinus bradycardia BPM 55 Respiratory: Normal Musculoskeletal: Normal Integumentary: Normal Handedness: Right hand Results of Mental Status Assessment Mental Assessments Attention: Abnormality Present: No Memory Working Memory: Abnormality Present: No Recent (Episodic) Memory: Abnormality Present: Yes ,1/3 spon; 2/3 with one clue Remote (Semantic) Memory: Abnormality Present: No Language Spontaneous Speech: Abnormality Present: No Comprehension: Abnormality Present: No Naming: Abnormality Present: No Repetition: Abnormality Present: No Reading: Abnormality Present: No Affect: Abnormality Present: No Craninal Nerve Assessment Visual Garcia: Normal EOM: Normal Nystagmus: Physiologic Pupils: Equal and reactive Ptosis: Absent Trigeminal: Normal CN VII: Normal CN VIII: Normal CN IX: Normal CN X: Normal CN XI: Normal CN XII: Normal Assessment of Motor and Bulk and Tones Motor Assessments Muscle bulk-global: Normal Muscle tone-global: Normal Motor Strength Assessment Shoulder flexion: Right 5 Left 5 Shoulder external rotation: Right 5 Left 5 Shoulder abduction: Right 5 Left 5 Shoulder adduction: Right 5 Left 5 Elbow flexion: Right 5 Left 5 Elbow extension: Right 5 Left 5 Wrist flexion: Right 5 Left 5 Wrist extension: Right 5 Left 5 Finger flexion/lock assembler: Right 5 Left 5 Flexor pollicis longus: Right 5 Left 5 Abductor pollicis brevis: Right 5 Left 5 Hip flexion: Right 5 Left 5 Hip extension: Right 5 Left 5 Hip abduction: Right 5 Left 5 Hip adduction: Right 5 Left 5 Knee flexion: Right 5 Left 5 Knee extension: Right 5 Left 5 Ankle eversion: Right 5 Left 5 Ankle inversion: Right 5 Left 5 Ankle plantar flexion: Right 5 Left 5 Ankle dorsiflexion: Right 5 Left 5 Extensor halluces longus: Right 5 Left 5 Flexor digitorum longus: Right 5 Left 5 Reflexes - MRC Grading Method Triceps: Right 1+ Left 1+ Biceps: Right 1+ Left 1+ Brachioradialis: Right 0 Left 0 Patellar: Right 2+ Left 2+ Achilles: Right 0 Left 0 Plantar: Right Downgoing Left Downgoing Weakness?: No Tremor: No Cerebellar/Coordination Assessment Wvgozc-ap-Zznn: Abnormality present: No, Ejwj-oz-Qold: Abnormality present: No, Finger Tapping - Abnormality present: No Fist Open/Close - Abnormality present: No Pronation/Supination of the Hand - Abnormality present: No Toe Tapping - Abnormality present: No Heel Tapping - Abnormality present: No Gait Gait-global assessment: Normal Toe Walk: Normal Heel Walk: Normal Tandem Walk: Abnormal (mild difficulty- lost balance once) Romberg: Negative (pass) Sensory/Sensation Sensory System-globlal assessment: Normal Esteban Uribe PA-C [facility] 03-06-2025 Note HNO ID: [id number] Author: RICH AGUILLON Research Coordinator Service: ? Author Type: Research Type: Progress Notes Filed: 03/06/2025 09:57 Note Text: [facility] Brain Study ([facility]): Biomarkers and Predictors of Neurological Disorders Patient/Research Subject Name: Devin Chapman Research Study IRB #: [id number] [facility] Brain Study ([facility]): Neurological Disorders Biorepository and Data Registry Verbal Confirmation of Continued Consent Occurred On: March 06, 2025 at 9:30 Participant has previously consented on the most updated version of the informed consent, version 3.6, dated 07/28/2023 and IRB approved on 03/06/2024. Participant arrived for study visit today and verbally reconfirmed their understanding and consent to participate in the study. Rich Aguillon, Research Coordinator [facility] 03-06-2025 History of Present illness Narrative [facility] Brain Study ([facility]): Biomarkers and Predictors of Neurological Disorders Patient/Research Subject Name: Devin Chapman Research Study IRB #: [id number] [facility] Brain Study ([facility]): Neurological Disorders Biorepository and Data Registry Verbal Confirmation of Continued Consent Occurred On: March 06, 2025 at 9:30 Participant has previously consented on the most updated version of the informed consent, version 3.6, dated 07/28/2023 and IRB approved on 03/06/2024. Participant arrived for study visit today and verbally reconfirmed their understanding and consent to participate in the study. Rich Aguillon Research Coordinator DATE:March 06, 2025 PT. NAME: Devin Chapman [facility]#: [id number] IRB #: [id number] A. PROTOCOL: [facility] Brain Study Cuff Maker: Myra Moses MD, , Chapin Becker MD, [facility] social contact worker for study related questions: Shaina Costa Subject continues to give consent for participation and for procedures related to study YES. Were there changes made to the informed consent since the last visit? no. If yes, were changes reviewed and explained to subject? N/a Was a new copy of the informed consent signed, placed in the chart, placed in the study file and was a copy given to the patient? no Patient Identification was verified by asking the patient's Name and Date Of : YES Time: 9:50 Blood drawn with vacutainer and labs drawn per protocol. Butterfly removed after blood draw and secured with sterile gauze. Patient tolerated procedure well. Rich Aguillon Research Coordinator documented in this encounter [facility] 03-06-2025 Note HNO ID: [id number] Author: RICH AGUILLON Research Coordinator Service: ? Author Type: Research Type: Progress Notes Filed: 03/06/2025 09:57 Note Text: DATE:March 06, 2025 PT. NAME: Devin Chapman [facility]#: [id number] IRB #: [id number]. PROTOCOL: [facility] Brain Study Cuff Maker: Myra Moses MD, , Chapin Becker MD, [facility] social contact worker for study related questions: Shaina Costa Subject continues to give consent for participation and for procedures related to study YES. Were there changes made to the informed consent since the last visit? no. If yes, were changes reviewed and explained to subject? N/a Was a new copy of the informed consent signed, placed in the chart, placed in the study file and was a copy given to the patient? no Patient Identification was verified by asking the patient's Name and Date Of : YES Time: 9:50 Blood drawn with vacutainer and labs drawn per protocol. Butterfly removed after blood draw and secured with sterile gauze. Patient tolerated procedure well. Rich Aguillon Research Coordinator [facility] 02-15-2025 Telephone encounter Note Prescription Refill Information The patient has been identified by name and date of : Yes Caregiver verified no other encounters exist for this prescription request: Yes Caregiver confirmed with patient/requestor that no other refills are due, in the near future, with this provider at this time: Yes The last office visit in the department: 01/19/2025 Does the patient have a future office visit with this provider/department: Yes. 01/19/2026 Requested Prescriptions Pending Prescriptions Disp Refills levothyroxine (SYNTHROID) 75 mcg tablet [Pharmacy Med Name: levothyroxine 75 mcg tablet] 90 tablet 3 Sig: TAKE 1 TABLET 6 (SIX) days a WEEK, NOT on Friday. Lora Mead MA February 15, 2025 9:09 AM [facility] 02-15-2025 Miscellaneous Notes Prescription Refill Information The patient has been identified by name and date of : Yes Caregiver verified no other encounters exist for this prescription request: Yes Caregiver confirmed with patient/requestor that no other refills are due, in the near future, with this provider at this time: Yes The last office visit in the department: 01/19/2025 Does the patient have a future office visit with this provider/department: Yes. 01/19/2026 Requested Prescriptions Pending Prescriptions Disp Refills levothyroxine (SYNTHROID) 75 mcg tablet [Pharmacy Med Name: levothyroxine 75 mcg tablet] 90 tablet 3 Sig: TAKE 1 TABLET 6 (SIX) days a WEEK, NOT on Dez. Lora Mead MA February 15, 2025 9:09 AM documented in this encounter [facility] 02-03-2025 Telephone encounter Note Prescription Refill Information PLEASE RE-SEND TO [facility] The patient has been identified by name and date of : Yes Caregiver verified no other encounters exist for this prescription request: Yes Caregiver confirmed with patient/requestor that no other refills are due, in the near future, with this provider at this time: Yes The last office visit in the department: 01/19/2025 Does the patient have a future office visit with this provider/department: Yes. 01/19/2026 Requested Prescriptions Pending Prescriptions Disp Refills alendronate (FOSAMAX) 70 mg tablet 12 tablet 3 Sig: Take 1 tablet by mouth one time a week. In AM with cup of water on empty stomach. Nothing else by mouth and stay upright for 30 min. Lora Mead MA February 03, 2025 1:22 PM [facility] 02-03-2025 Miscellaneous Notes Prescription Refill Information PLEASE RE-SEND TO [facility] The patient has been identified by name and date of : Yes Caregiver verified no other encounters exist for this prescription request: Yes Caregiver confirmed with patient/requestor that no other refills are due, in the near future, with this provider at this time: Yes The last office visit in the department: 01/19/2025 Does the patient have a future office visit with this provider/department: Yes. 01/19/2026 Requested Prescriptions Pending Prescriptions Disp Refills alendronate (FOSAMAX) 70 mg tablet 12 tablet 3 Sig: Take 1 tablet by mouth one time a week. In AM with cup of water on empty stomach. Nothing else by mouth and stay upright for 30 min. Lora Mead MA February 03, 2025 1:22 PM documented in this encounter [facility] 01-19-2025 Instructions Ryan Barbosa MD - 01/19/2025 8:01 AM EDT Schedule bone density Get labs done at [facility]. Will call with results. See me again in 12 months. BONE MINERAL DENSITY PATIENT INSTRUCTIONS ======= Bone mineral density testing measures the amount of calcium in certain parts of your bones. This information determines how strong your bones are. The test is used to detect osteoporosis, a disease in which the bone's mineral content and density are low, increasing a person's risk of fractures. The lumbar spine (lower back) and the hip are the skeletal sites usually examined. For the test, remember that: 1. You cannot take this test if you are . 2. Eat a normal diet on the day of the test. 3. Take your medications as you normally would. 4. DO NOT take calcium supplements (such as Tums) for 24 hours before the test. 5. On the day of the test, leave valuables (jewelry or credit cards) at home. 6. The test should be performed prior to oral, rectal or IV contrast studies, or at least 7 days after any of these studies. For the test, you may be asked to wear a hospital gown. You will lie on your back, on a padded table, in a comfortable position. Generally, you can resume your usual activities immediately. documented in this encounter [facility] 01-19-2025 Note HNO ID: [id number] Author: RYAN BARBOSA MD Service: ? Author Type: Physician Type: Progress Notes Filed: 01/19/2025 08:54 Note Text: Follow-up 69 year-old retired female, patient of Dr. Mauro Tomlinson, with primary hypothyroidism, osteopenia, and hypertension. Takes levothyroxine six days a week. She has past history of primary hyperparathyroidism, s/p right superior parathyroidectomy in 05/30, medullary sponge kidney with history of nephrocalcinosis and nephrolithiasis. Medication list reviewed, reconciled. Patient reports feeling well. No height loss or fragility fractures noted this year. No history of hypertension. No neck swelling, dysphagia. Has family history of osteoporosis. Maximal adult height is 65. Had COVID vaccination and flu shot. No longer on lisinopril (cough). Started alendronate in 06/2022. She deferred starting statin in 12/2023. Current Outpatient Medications on File Prior to Visit Medication Sig cetirizine (ZYRTEC) 10 mg tablet Take 10 mg by mouth once daily. losartan (COZAAR) 25 mg tablet Take 25 mg by mouth once daily. Fluorouracil 5 % cream Apply to affected area two times a day. alendronate (FOSAMAX) 70 mg tablet TAKE 1 TABLET BY MOUTH ONCE A WEEK IN THE MORNING WITH CUP OF WATER ON AN EMPTY STOMACH. NOTHING ELSE BY MOUTH AND STAY UPRIGHT FOR 30 MINUTES levothyroxine (SYNTHROID) 75 mcg tablet Take one pill daily, no pill on Sundays. cholecalciferol (VITAMIN D-3) 5,000 unit tab Take 1 tablet by mouth once daily. Review of patient's allergies indicates: No Known Allergies Answers submitted by the patient for this visit: Core Review of Systems (Submitted on 01/17/2025) Fever : No Night sweats: No Recent unintentional weight change: No Nasal Congestion: Yes Hearing Loss: Yes Vision Disturbance: No A cough: No Difficulty Breathing?: No Chest pain: No Irregular heartbeat: No Leg Swelling: No Nausea: No Diarrhea: No Black tarry stools: No Difficulty Urinating?: No Awaken at Night More Than Once to Urinate?: No Joint pain or stiffness: Yes Muscle aches: No Leg or Foot Discomfort at Night?: Yes A rash: No Dizziness: No Headaches: No Memory Loss: No Seizures: No BP 148/85 Pulse 73 Wt 74.3 kg (163 lb 12.8 oz) SpO2 98% BMI 27.79 kg/m? Weight up 2 pounds since 12/2023. Height stable. 5'4.37 General appearance: Well-appearing overweight (BMI > 25) female, alert, in no acute distress, well-hydrated, well nourished. BP elevated Repeat BP 144/85 Skin: Skin color, texture, turgor normal, no suspicious rashes or lesions Head: normocephalic, no masses, lesions, tenderness or abnormalities Eyes: Anicteric sclera. Pupils are equally round. Extraocular movements are intact. Ears: not examined Nose/Sinuses: Nares normal. No drainage or sinus tenderness. Oropharynx: Lips, mucosa, and tongue normal, teeth and gums not examined. Neck: Supple, no adenopathy; no palpable thyroid enlargement. Well-healed thyroidectomy incision. Lungs: Breathing unlabored. Heart: RRR. No ectopy Abdomen: deferred Extremities: No deformities, edema, skin discoloration, clubbing or cyanosis. Good capillary refill. Musculoskeletal: Spine range of motion not tested. Muscular strength intact, No joint swelling, deformity, or tenderness Neuro: Gait normal. Sensation grossly intact. DEXA bone densitometry in 06/2019 showed T-scores as follows: lumbar -0.8 (up 5%), hip -1.1 (up 5%), femoral neck -1.8 (unchanged). DEXA bone densitometry in 07/2021 showed T-scores as follows: lumbar -0.6, hip -1.3, femoral neck -2.0. FRAX 1.8/20.3 IMPRESSION: Osteopenia - continue bisphosphonate until 06/2027, check DEXA Hypothyroidism - check TSH, free T4 on the current levothyroxine dose Vitamin D deficiency - continue supplement Hyperlipidemia - defers statin, wants lipid panel re-check PLAN: Check TSH, free T4, lipid panel Will call with results Continue alendronate 70 mg once weekly Check bone density RTO in [address] French for regular health care needs Ryan Barbosa MD, FACP I spent a total of 30 minutes on the date of service which included preparing to see the patient, [id number] patient care, completing clinical documentation, performing a medically appropriate examination, counseling and educating the patient/family/caregiver and ordering medications, tests, or procedures. [facility] 01-19-2025 History of Present illness Narrative Follow-up 69 year-old retired female, patient of Dr. Mauro Tomlinson, with primary hypothyroidism, osteopenia, and hypertension. Takes levothyroxine six days a week. She has past history of primary hyperparathyroidism, s/p right superior parathyroidectomy in 05/30, medullary sponge kidney with history of nephrocalcinosis and nephrolithiasis. Medication list reviewed, reconciled. Patient reports feeling well. No height loss or fragility fractures noted this year. No history of hypertension. No neck swelling, dysphagia. Has family history of osteoporosis. Maximal adult height is 65. Had COVID vaccination and flu shot. No longer on lisinopril (cough). Started alendronate in 06/2022. She deferred starting statin in 12/2023. Current Outpatient Medications on File Prior to Visit Medication Sig cetirizine (ZYRTEC) 10 mg tablet Take 10 mg by mouth once daily. losartan (COZAAR) 25 mg tablet Take 25 mg by mouth once daily. Fluorouracil 5 % cream Apply to affected area two times a day. alendronate (FOSAMAX) 70 mg tablet TAKE 1 TABLET BY MOUTH ONCE A WEEK IN THE MORNING WITH CUP OF WATER ON AN EMPTY STOMACH. NOTHING ELSE BY MOUTH AND STAY UPRIGHT FOR 30 MINUTES levothyroxine (SYNTHROID) 75 mcg tablet Take one pill daily, no pill on Sundays. cholecalciferol (VITAMIN D-3) 5,000 unit tab Take 1 tablet by mouth once daily. Review of patient's allergies indicates: No Known Allergies Answers submitted by the patient for this visit: Core Review of Systems (Submitted on 01/17/2025) Fever : No Night sweats: No Recent unintentional weight change: No Nasal Congestion: Yes Hearing Loss: Yes Vision Disturbance: No A cough: No Difficulty Breathing?: No Chest pain: No Irregular heartbeat: No Leg Swelling: No Nausea: No Diarrhea: No Black tarry stools: No Difficulty Urinating?: No Awaken at Night More Than Once to Urinate?: No Joint pain or stiffness: Yes Muscle aches: No Leg or Foot Discomfort at Night?: Yes A rash: No Dizziness: No Headaches: No Memory Loss: No Seizures: No BP 148/85 Pulse 73 Wt 74.3 kg (163 lb 12.8 oz) SpO2 98% BMI 27.79 kg/m Weight up 2 pounds since 12/2023. Height stable. 5'4.37 General appearance: Well-appearing overweight (BMI > 25) female, alert, in no acute distress, well-hydrated, well nourished. BP elevated Repeat BP 144/85 Skin: Skin color, texture, turgor normal, no suspicious rashes or lesions Head: normocephalic, no masses, lesions, tenderness or abnormalities Eyes: Anicteric sclera. Pupils are equally round. Extraocular movements are intact. Ears: not examined Nose/Sinuses: Nares normal. No drainage or sinus tenderness. Oropharynx: Lips, mucosa, and tongue normal, teeth and gums not examined. Neck: Supple, no adenopathy; no palpable thyroid enlargement. Well-healed thyroidectomy incision. Lungs: Breathing unlabored. Heart: RRR. No ectopy Abdomen: deferred Extremities: No deformities, edema, skin discoloration, clubbing or cyanosis. Good capillary refill. Musculoskeletal: Spine range of motion not tested. Muscular strength intact, No joint swelling, deformity, or tenderness Neuro: Gait normal. Sensation grossly intact. DEXA bone densitometry in 06/2019 showed T-scores as follows: lumbar -0.8 (up 5%), hip -1.1 (up 5%), femoral neck -1.8 (unchanged). DEXA bone densitometry in 07/2021 showed T-scores as follows: lumbar -0.6, hip -1.3, femoral neck -2.0. FRAX 1.8/20.3 IMPRESSION: Osteopenia - continue bisphosphonate until 06/2027, check DEXA Hypothyroidism - check TSH, free T4 on the current levothyroxine dose Vitamin D deficiency - continue supplement Hyperlipidemia - defers statin, wants lipid panel re-check PLAN: Check TSH, free T4, lipid panel Will call with results Continue alendronate 70 mg once weekly Check bone density RTO in [address] French for regular health care needs Ryan Barbosa MD, FACP I spent a total of 30 minutes on the date of service which included preparing to see the patient, [id number] patient care, completing clinical documentation, performing a medically appropriate examination, counseling and educating the patient/family/caregiver and ordering medications, tests, or procedures. documented in this encounter [facility] 11-30-2024 History of Present illness Narrative Devin Chapman 11/30/[birth year]24 69 y.o. Chief Complaint Patient presents with Annual Exam Annual exam No LMP recorded. Patient is postmenopausal. Primary Care Physician: Mauro Tomlinson DO The patient was seen and examined. She is here for her annual exam. Pap neg/neg 2021. Mg 05/20 wnl. Colonoscopy due 2027 polyps. dexa 2021 osteopenia. Fosamax through primary. Breast density c mri discussed. Will hold off for now. Elev bp asymptomatic Took meds Will fu with primary Poss fam ho skin cancer HPI : Devin Chapman is a 69 y.o. female ____ OB History Para Term AB Living 6 3 3 SAB IAB Ectopic Multiple Live Births 3 # Outcome Date GA Lbr Malcolm/2nd Weight Sex Type Anes PTL Lv 6 Term 5 Term 4 Term 3 CS-Unspec 2 CS-Unspec 1 CS-Unspec Past Medical History: Diagnosis Date Allergic rhinitis Breast cancer screening by mammogram 04/2024 [place] Cough secondary to angiotensin converting enzyme inhibitor (DEVON-I) 07/25/2023 H/O colonoscopy with polypectomy 11/2022- 2027 History of hyperparathyroidism 2002 s/p Rt sup parathyroidectomy History of mononucleosis Hypercholesterolemia 2021 Attempting diet and exercise Labile essential hypertension 2021 Medullary sponge kidney History of nephrocalcinosis/lithiasis Osteopenia Postoperative primary hypothyroidism 2003 [place] Statin intolerance Past Surgical History: Procedure Laterality Date SECTION (HISTORICAL) 3 pregnancies COLONOSCOPY 2016 2016 COLONOSCOPY W/ POLYPECTOMY 11/2022 Pj- due 2027 PARATHYROIDECTOMY Right 2002 Right sup lesion- [place] also TUBAL LIGATION Family History Problem Relation Name Age of Onset Dementia Mother 85 age 91 High Blood Pressure Mother Depression Father in 90s No Known Problems Sister No Known Problems Sister No Known Problems Brother Sleep apnea Brother Sleep apnea Brother No Known Problems Maternal Grandmother age 99 Alcohol abuse Maternal Grandfather in 60 No Known Problems Paternal Grandmother in 90s No Known Problems Paternal Grandfather Ovarian cancer Neg Hx Colon cancer Neg Hx Breast cancer Neg Hx Uterine cancer Neg Hx Social History Socioeconomic History Marital status: Spouse name: Not on file Number of children: Not on file Years of education: Not on file Highest education level: Not on file Occupational History Not on file Tobacco Use Smoking status: Never Passive exposure: Never Smokeless tobacco: Never Vaping Use Vaping status: Never Used Substance and Sexual Activity Alcohol use: No Alcohol/week: 0.0 standard drinks of alcohol Drug use: No Sexual activity: Not on file Other Topics Concern Not on file Social History Narrative to Ferdinand (Hx of CAD) NS or drinker, Has 3 dtrs, first GD Rosalba born in 01/2022. 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 Enjoys [employer] and [employer] Social Drivers of Health Financial Resource Strain: Low Risk (11/28/2024) Overall Financial Resource Strain (CARDIA) Difficulty of Paying Living Expenses: Not hard at all Food Insecurity: No Food Insecurity (11/28/2024) Hunger Vital Sign Worried About Running Out of Food in the Last Year: Never true Ran Out of Food in the Last Year: Never true Transportation Needs: No Transportation Needs (11/28/2024) PRAPARE - Transportation Lack of Transportation (Medical): No Lack of Transportation (Non-Medical): No Physical Activity: Sufficiently Active (11/28/2024) Exercise Vital Sign Days of Exercise per Week: 3 days Minutes of Exercise per Session: 60 min Stress: No Stress Concern Present (11/28/2024) [place] [place] [employer] - Occupational Stress Questionnaire Feeling of Stress : Not at all Social Connections: Unknown (11/28/2024) Social Connection and Isolation Panel [NHANES] Frequency of Communication with Friends and Family: More than three times a week Frequency of Social Gatherings with Friends and Family: Three times a week Attends Adventism Services: Patient declined Active Member of Clubs or Organizations: Yes Attends Club or Organization Meetings: More than 4 times per year Marital Status: Intimate Partner Violence: Not on file Housing Stability: Low Risk (11/28/2024) Housing Stability Vital Sign Unable to Pay for Housing in the Last Year: No Number of Times Moved in the Last Year: 0 Homeless in the Last Year: No MEDICATIONS: Current Outpatient Medications Medication Sig Dispense Refill alendronate (Fosamax) 70 MG tablet Take 70 mg by mouth once a week. cetirizine (ZyrTEC) 10 MG tablet Take 1 tablet (10 mg) by mouth daily. 90 tablet 3 cholecalciferol (Vitamin D-3) 25 MCG (1000 UT) capsule Take 5,000 Units by mouth in the morning. fluticasone (Flonase) 50 MCG/ACT nasal spray Administer 1 spray into each nostril daily. Shake gently. Before first use, prime pump. After use, clean tip and replace cap. 16 g 11 losartan (Cozaar) 25 MG tablet Take 1 tablet (25 mg) by mouth daily. 90 tablet 1 Synthroid 75 MCG tablet No current facility-administered medications for this visit. ALLERGIES: Allergies as of 11/30/2024 - Reviewed 11/30/2024 Allergen Reaction Noted Lisinopril Cough 07/25/2023 Pedi-pre tape spray [wound dressing adhesive] 11/10/2020 GynecologicHistory: Menstrual History: No LMP recorded. Patient is postmenopausal. ____ Review of Systems Constitutional: Negative for fatigue, fever and unexpected weight change. HENT: Negative for congestion and sore throat. Eyes: Negative for discharge and visual disturbance. Respiratory: Negative for cough and shortness of breath. Cardiovascular: Negative for chest pain and leg swelling. Gastrointestinal: Negative for abdominal pain, constipation, diarrhea, nausea and vomiting. Genitourinary: Negative for dysuria and pelvic pain. Musculoskeletal: Negative for arthralgias and back pain. Skin: Negative for rash. Neurological: Negative for weakness and headaches. Psychiatric/Behavioral: Negative for dysphoric mood. The patient is not nervous/anxious. PHYSICAL Exam: Constitutional: Vitals: 11/30/24 1012 11/30/24 1013 11/30/24 1044 BP: (!) 161/94 (!) 173/102 (!) 140/90 Pulse: 66 73 Weight: 163 lb (73.9 kg) Height: 5' 5 (1.651 m) Physical Exam Constitutional: General: She is not in acute distress. Appearance: Normal appearance. HENT: Head: Normocephalic and atraumatic. Right Ear: External ear normal. Left Ear: External ear normal. Nose: Nose normal. Eyes: Conjunctiva/sclera: Conjunctivae normal. Neck: Thyroid: No thyromegaly. Cardiovascular: Rate and Rhythm: Normal rate. Pulmonary: Effort: Pulmonary effort is normal. No respiratory distress. Chest: Breasts: Right: No mass, nipple discharge, skin change or tenderness. Left: No mass, nipple discharge, skin change or tenderness. Abdominal: General: There is no distension. Palpations: Abdomen is soft. Tenderness: There is no abdominal tenderness. Genitourinary: General: Normal vulva. Pubic Area: No rash. Labia: Right: No rash or lesion. Left: No rash or lesion. Vagina: No vaginal discharge or bleeding. Cervix: No cervical motion tenderness. Uterus: Not enlarged and not tender. Adnexa: Right: No mass or tenderness. Left: No mass or tenderness. Rectum: Normal. Musculoskeletal: General: No swelling. Normal range of motion. Cervical back: Normal range of motion. Right lower leg: No edema. Left lower leg: No edema. Skin: General: Skin is warm and dry. Neurological: Mental Status: She is alert and oriented to person, place, and time. Mental status is at baseline. Psychiatric: Mood and Affect: Mood normal. Behavior: Behavior normal. ASSESSMENT: 69 y.o. Annual Diagnosis Plan 1. Well woman exam with routine gynecological exam 2. Encounter for screening mammogram for malignant neoplasm of breast Bilateral screening mammogram with tomosynthesis Chief Complaint Patient presents with Annual Exam Annual exam Past Medical History: Diagnosis Date Allergic rhinitis Breast cancer screening by mammogram 04/2024 [place] Cough secondary to angiotensin converting enzyme inhibitor (DEVON-I) 07/25/2023 H/O colonoscopy with polypectomy 11/2022 Pj- due 2027 History of hyperparathyroidism 2002 s/p Rt sup parathyroidectomy History of mononucleosis Hypercholesterolemia 2021 Attempting diet and exercise Labile essential hypertension 2021 Medullary sponge kidney History of nephrocalcinosis/lithiasis Osteopenia Postoperative primary hypothyroidism 2003 Replaced By [facility] Statin intolerance Hereditary Breast, Ovarian, Colon and Uterine Cancer screening Done. Tobacco & Secondary smoke risks reviewed; instructed on cessation and avoidance PLAN: Follow up in about 1 year (around 11/30/2025) for annual. Repeat Annual every 1 year PAP guidelines reviewed with pt Mammograms annually if normal. Bone density and colonoscopy recommendations reviewed with patient. Routine health maintenance per patients PCP. Orders Placed This Encounter Procedures Bilateral screening mammogram with tomosynthesis Standing Status: Future Standing Expiration Date: 01/30/2026 Insurance Claim Auditor was offered to the patient for exam. Patient declined offer of junior financial analyst documented in this encounter [facility] 11-01-2024 Telephone encounter Note Prescription Refill Information The patient has been identified by name and date of : Yes Caregiver verified no other encounters exist for this prescription request: Yes Caregiver confirmed with patient/requestor that no other refills are due, in the near future, with this provider at this time: Yes The last office visit in the department: 01/19/2024 Does the patient have a future office visit with this provider/department: Yes. 01/19/2025 Requested Prescriptions Pending Prescriptions Disp Refills alendronate (FOSAMAX) 70 mg tablet [Pharmacy Med Name: alendronate 70 mg tablet] 12 tablet 3 Sig: TAKE 1 TABLET BY MOUTH ONCE A WEEK IN THE MORNING WITH CUP OF WATER ON AN EMPTY STOMACH. NOTHING ELSE BY MOUTH AND STAY UPRIGHT FOR 30 MINUTES Lora Mead MA November 01, 2024 9:38 AM [facility] 11-01-2024 Miscellaneous Notes Prescription Refill Information The patient has been identified by name and date of : Yes Caregiver verified no other encounters exist for this prescription request: Yes Caregiver confirmed with patient/requestor that no other refills are due, in the near future, with this provider at this time: Yes The last office visit in the department: 01/19/2024 Does the patient have a future office visit with this provider/department: Yes. 01/19/2025 Requested Prescriptions Pending Prescriptions Disp Refills alendronate (FOSAMAX) 70 mg tablet [Pharmacy Med Name: alendronate 70 mg tablet] 12 tablet 3 Sig: TAKE 1 TABLET BY MOUTH ONCE A WEEK IN THE MORNING WITH CUP OF WATER ON AN EMPTY STOMACH. NOTHING ELSE BY MOUTH AND STAY UPRIGHT FOR 30 MINUTES Lora Mead MA November 01, 2024 9:38 AM documented in this encounter [facility] 09-14-2024 Telephone encounter Note Medication name: losartan (Cozaar) 25 MG tablet Medication dosage: 25 mg (Miligrams Monthly quantity needed: 30 How many day supply requestin days Medication route: oral (PO) Medication administration time(s): daily If taking medication PRN, reason for taking medication: N/A If this is a controlled substance do you receive this or any other controlled medication from any other doctor or facility: No Ordering provider: Dr. Tomlinson Date of last office visit: 04/16/2024 Date of next office visit: 01/27/2025 Date of last refill: (see medication tab): 05/17/2024 Updated/Validated preferred pharmacy: Yes Patient instructed to contact the pharmacy prior to picking up the medication: No [facility] 09-14-2024 Miscellaneous Notes Medication name: losartan (Cozaar) 25 MG tablet Medication dosage: 25 mg (Miligrams Monthly quantity needed: 30 How many day supply requestin days Medication route: oral (PO) Medication administration time(s): daily If taking medication PRN, reason for taking medication: N/A If this is a controlled substance do you receive this or any other controlled medication from any other doctor or facility: No Ordering provider: Dr. Tomlinson Date of last office visit: 04/16/2024 Date of next office visit: 01/27/2025 Date of last refill: (see medication tab): 05/17/2024 Updated/Validated preferred pharmacy: Yes Patient instructed to contact the pharmacy prior to picking up the medication: No documented in this encounter [facility] 09-03-2024 Telephone encounter Note Rx loaded [facility] 09-03-2024 Miscellaneous Notes Rx loaded documented in this encounter [facility] 05-13-2024 History of Present illness Narrative The patient, Devin Chapman, identity was verified by name and . Supervising provider for clinic visit: Dr. Mauro Tomlinson Chief Complaint Patient presents with Blood Pressure Check Reason for visit: Elevated BP Reading at last visit - added new medication at last visit Devin Chapman has validated current medications Patient states compliant with medications as written: Yes BP medication taken prior to this visit? Yes Are you having any symptoms? No Current Blood Pressure: 144/85 Current Heart Rate: 66 Did Blood Pressure need rechecked: yes Second Blood Pressure Readin/88 Second Heart Rate: 72 Assessment/Plan: Devin was seen today for blood pressure check. Diagnoses and all orders for this visit: Essential hypertension elevated Future Appointments Date Time Provider Department Center 05/18/2024 1:00 PM [facility] BI EXAM ROOM 1 [facility] BREAST [facility] Imaging 11/30/2024 10:00 AM Yumi Colón MD [facility] Offi 01/27/2025 8:00 AM Mauro Tomlinson DO [facility] Cc'd provider blood pressure readings? Yes BP too high, I rec inc Losartan to 50 mg q day, new rx sent. Rech BP 4 wks, and to for coding documented in this encounter [facility] 05-13-2024 History of Present illness Narrative The patient, Devin Chapman, identity was verified by name and . Supervising provider for clinic visit: Dr. Mauro Tomlinson Chief Complaint Patient presents with Blood Pressure Check Reason for visit: Elevated BP Reading at last visit - added new medication at last visit Devin Chapman has validated current medications Patient states compliant with medications as written: Yes BP medication taken prior to this visit? Yes Are you having any symptoms? No Current Blood Pressure: 144/85 Current Heart Rate: 66 Did Blood Pressure need rechecked: yes Second Blood Pressure Readin/88 Second Heart Rate: 72 Assessment/Plan: Devin was seen today for blood pressure check. Diagnoses and all orders for this visit: Essential hypertension elevated Future Appointments Date Time Provider Department Center 05/18/2024 1:00 PM [facility] BI EXAM ROOM 1 [facility] BRE[facility] Imaging 11/30/2024 10:00 AM Yumi Colón MD [facility] OB Offi 01/27/2025 8:00 AM Mauro Tomlinson DO [facility] Cc'd provider blood pressure readings? Yes BP too high, I rec inc Losartan to 50 mg q day, new rx sent. Rech BP 4 wks, and to for coding Placed call to patient to discuss provider direction. Message left on voicemail to return call. Also, sent a Xumii message. documented in this encounter [facility] 05-13-2024 History of Present illness Narrative The patient, Devin Chapman, identity was verified by name and . Supervising provider for clinic visit: Dr. Mauro Tomlinson Chief Complaint Patient presents with Blood Pressure Check Reason for visit: Elevated BP Reading at last visit - added new medication at last visit Devin Chapman has validated current medications Patient states compliant with medications as written: Yes BP medication taken prior to this visit? Yes Are you having any symptoms? No Current Blood Pressure: 144/85 Current Heart Rate: 66 Did Blood Pressure need rechecked: yes Second Blood Pressure Readin/88 Second Heart Rate: 72 Assessment/Plan: Devin was seen today for blood pressure check. Diagnoses and all orders for this visit: Essential hypertension elevated Future Appointments Date Time Provider Department Center 05/18/2024 1:00 PM [facility] BI EXAM ROOM 1 [facility] BRE[facility] Imaging 11/30/2024 10:00 AM Yumi Colón MD [facility] OB Offi 01/27/2025 8:00 AM Mauro Tomlinson DO [facility] Cc'd provider blood pressure readings? Yes BP too high, I rec inc Losartan to 50 mg q day, new rx sent. Rech BP 4 wks, and to for coding Placed call to patient to discuss provider direction. Message left on voicemail to return call. Also, sent a Xumii message. Patient saw Xumii message. documented in this encounter [facility] 05-10-2024 History of Present illness Narrative Images from the original note were not included. [facility] [address] [place] [address] [place] [id number] Dept: [phone] Dept No chief complaint on file. Subjective History of Present Illness: Devin Chapman is a 68 y.o. right hand dominant female who presents today for evaluation of right shoulder pain. Location: anterior and posterior Onset: 3 weeks Injury: no Quality: aching Mechanical symptoms: no Radiation of symptoms: into the back of her shoulder Severity: 2/10 at rest and 9/10 at worst Exacerbating factor(s): repetitive use and reaching across Relieving factor(s): rest Timing: intermittently Imaging to date: X-ray March 2024 Treatment to date: PT/OT/HEP: 15-20 years ago Ice: no Heat: no Medications: Tylenol: no NSAIDs: no Oral steroids: no Muscle relaxants: no Nerve medications: no Targeted injections: none Assistive devices: none Prior surgery: no Occupation: Retired, Fall risk assessment: Completed today. Have you had 2 or more falls in the last year? No Have you had a fall with injury in the last year? No Do you feel unsteady or worried about falling? No Objective Visit Vitals BP 128/82 Physical Exam: General: Alert, well appearing, no acute distress. Respiratory: Breathing comfortably on room air. No respiratory distress. Skin: Warm, dry, intact. No visible rashes or erythema overlying area of focused exam. Physical Exam Musculoskeletal: Right shoulder: Deformity and tenderness (AC joint mild) present. No swelling. Normal range of motion. Normal strength. Normal pulse. Arms: Comments: Diffuse vague soft tissue enlargement compared to the left side as noted above in the cervical. Rotator cuff strength intact. No subluxation of SC or AC joint. External Notes No pertinent interval updates Labs No results found for: HGBA1C Lab Results Component Value Date CREATININE 0.77 07/25/2023 Imaging Images reviewed with patient today I have personally reviewed the images pertinent to the appointment today EMG/NCT No interval studies Procedure No procedures completed today Assessment Diagnosis Plan 1. Acute pain of right shoulder [facility] 2. Osteoarthritis of right shoulder, unspecified osteoarthritis type [facility] Plan -Discussed with the patient the nature of shoulder pathology. -Discussed shoulder imaging results with patient. -Discussed options for activity modification. -Discussed possible treatment modalities including observation, home exercise program, monitoring for any change in swelling symptomatology pain localization of her current symptoms.. -Questions answered. -Written patient information provided in the AVS. No follow-ups on file. Samy Teran MD 05/10/2024 10:26 AM Please note that portions of this note may have been completed with voice recognition software. Documentation reviewed prior to signing but minor errors in respite worker may have occurred. documented in this encounter [facility] 04-27-2024 Telephone encounter Note Referral to Dr Iverson pended for dx and doctor's signature [facility] 04-27-2024 Miscellaneous Notes Referral to Dr Iverson pended for dx and doctor's signature Images from the original note were not included. Pura Mackey MA 04/27/2024 9:50 AM EDT Back to Top Samina Jacoboedwin1 hour ago (7:59 AM) AJ Message released to patient as written. yes Patient's further questions if applicable: none Were all questions from office addressed or relayed to the patient from encounter: Yes- Pt would like the referral sent to Dr Iverson. Please advise. Pura Mackey MA 04/26/2024 4:41 PM EDT Placed call to patient. Unable to reach them by phone to discuss lab results. Left detailed message to return call to discuss results. Mauro Gil DO [facility] 04/25/2024 6:39 PM EDT Moderate arthritis of the acromioclavicular joint. Her actual shoulder joint looks clean of arthritis. If she desires and improvement with NSAIDs, I would recommend orthopedic consultation for possible injection. Post referral to Dr. Iverson if she agrees documented in this encounter [facility] 04-27-2024 Telephone encounter Note Images from the original note were not included. Pura Mackey MA 04/27/2024 9:50 AM EDT Back to Top Samina JainMary Chavez1 hour ago (7:59 AM) AJ Message released to patient as written. yes Patient's further questions if applicable: none Were all questions from office addressed or relayed to the patient from encounter: Yes- Pt would like the referral sent to Dr Iverson. Please advise. Pura Mackey MA 04/26/2024 4:41 PM EDT Placed call to patient. Unable to reach them by phone to discuss lab results. Left detailed message to return call to discuss results. Mauro Gil DO [facility] 04/25/2024 6:39 PM EDT Moderate arthritis of the acromioclavicular joint. Her actual shoulder joint looks clean of arthritis. If she desires and improvement with NSAIDs, I would recommend orthopedic consultation for possible injection. Post referral to Dr. Iverson if she agrees [facility] 04-16-2024 Telephone encounter Note Appointment rescheduled per patients request [facility] 04-16-2024 Miscellaneous Notes Appointment rescheduled per patients request Name of Caller: Devin Contact Reason for Appointment: Patient requesting to reschedule her 05/13 nurse visit. Patient requesting the same day but something after 1:00. Please advise. Office Name: [facility] Medication Refills need, if any: n/a Medication Name: n/a documented in this encounter [facility] 04-16-2024 Telephone encounter Note Name of Caller: Devin Contact Reason for Appointment: Patient requesting to reschedule her 05/13 nurse visit. Patient requesting the same day but something after 1:00. Please advise. Office Name: [facility] Medication Refills need, if any: n/a Medication Name: n/a [facility] 04-16-2024 History of Present illness Narrative Images from the original note were not included. [facility] [address] [facility] [id number] Visit type: Established Patient Reason for Visit: Referral (Sleep study) and Flu Vaccine (Patient has agreed to receive influenza vaccine in the office today. ) Assessment / Plan: Devin was seen today for referral and flu vaccine. Diagnoses and all orders for this visit: Essential hypertension (Primary) Comments: New onset, begin losartan, BP check 4 weeks Snoring Comments: Recurrent, await sleep study. Acute pain of right shoulder Comments: Recurrent, probably sternoclavicular arthritis, OTC NSAIDs and x-ray Orders: - XR shoulder 2+ views right; Future - XR clavicle right; Future Hypercholesterolemia Comments: Stable, deferring treatment. Low-fat meals recheck labs 6 months Other orders - Flu vaccine (FLUAD), trivalent, adjuvanted, preservative-free (ages 65+/high dose) - fluticasone (Flonase) 50 MCG/ACT nasal spray; Administer 1 spray into each nostril daily. Shake gently. Before first use, prime pump. After use, clean tip and replace cap. - losartan (Cozaar) 25 MG tablet; Take 1 tablet (25 mg) by mouth daily. 35 Minutes spent on reviewing pertinent history, patient interview, physical exam, discussion of diagnosis and treatment and work-up options. Will reach out to [facility] and obtain her recent studies. Low-fat meals, OTC NSAIDs for shoulder Subjective: Patient ID: Devin Chapman is a 68 y.o. female. HPI patient presents for the purpose of discussing apparently a sleep study and other exam including lab and MRI of the head that she acquired from [facility] consultation for brain health. Results are not available to review in [facility]. Has long-term snorer. She denies excessive daytime sedation or difficulty staying awake. History of hypertension but has deferred treatment. Blood pressure readings are well over normal. History of hyperlipidemia but she is deferred treatment. Some family history of dementia late in life and apnea in her brother's. Review of Systems no recent earache sore throat or cough. Denies sinus obstruction symptoms. Does take [id number] Zyrtec as needed and uses Flonase as needed. No purulent rhinorrhea. No chest pain or shortness of breath. No cough or wheezing. Few months of right shoulder pain. Does enjoy golf. No history of trauma. Pain along the proximal of the collarbone and goes to the lateral shoulder. No neck or radicular symptoms. Allergies Allergen Reactions Lisinopril Cough cough Pedi-Pre Tape [place] [Wound Dressing Adhesive] Current Outpatient Medications on File Prior to Visit Medication Sig Dispense Refill alendronate (Fosamax) 70 MG tablet Take 70 mg by mouth once a week. cetirizine (ZyrTEC) 10 MG tablet Take 1 tablet (10 mg) by mouth daily. 90 tablet 3 cholecalciferol (Vitamin D-3) 25 MCG (1000 UT) capsule Take 5,000 Units by mouth in the morning. Synthroid 75 MCG tablet [DISCONTINUED] fluticasone (Flonase) 50 MCG/ACT nasal spray Administer 1 spray into each nostril daily. Shake gently. Before first use, prime pump. After use, clean tip and replace cap. No current facility-administered medications on file prior to visit. Patient Active Problem List Diagnosis Hypercholesterolemia Medullary sponge kidney History of hyperparathyroidism Labile essential hypertension Postoperative primary hypothyroidism H/O colonoscopy with polypectomy Cough secondary to angiotensin converting enzyme inhibitor (DEVON-I) Osteopenia Allergic rhinitis Social History Tobacco Use Smoking status: Never Smokeless tobacco: Never Substance Use Topics Alcohol use: No Alcohol/week: 0.0 standard drinks of alcohol Past Surgical History: Procedure Laterality Date SECTION (HISTORICAL) 3 pregnancies COLONOSCOPY 2016 2016 COLONOSCOPY W/ POLYPECTOMY 11/2022 Pj- due 2027 PARATHYROIDECTOMY Right 2002 Right sup lesion- Hashimotos also TUBAL LIGATION Family History Problem Relation Name Age of Onset Dementia Mother 85 age 91 High Blood Pressure Mother Depression Father in 90s No Known Problems Sister No Known Problems Sister No Known Problems Brother Sleep apnea Brother Sleep apnea Brother No Known Problems Maternal Grandmother age 99 Alcohol abuse Maternal Grandfather in 60 No Known Problems Paternal Grandmother in 90s No Known Problems Paternal Grandfather Ovarian cancer Neg Hx Colon cancer Neg Hx Breast cancer Neg Hx Uterine cancer Neg Hx Objective: BP (!) 144/84 (BP Location: Left arm, Patient Position: Sitting, BP Cuff Size: Large adult) Pulse 64 Temp 36.1 C (97 F) (Temporal) Ht 5' 5 (1.651 m) Wt 163 lb (73.9 kg) SpO2 96% BMI 27.12 kg/m Physical Exam normal ENT exam. No nasal masses. Normal eardrums. Normal oropharynx. No neck masses adenopathy or JVD. No carotid bruits. Rate is regular without gallops or murmurs. Lungs are clear. Blood pressure reading is accurate. Abdomen not examined. Extremities are pink without edema pallor or cyanosis. Asymmetric enlargement of the right sternoclavicular joint. All rotator cuff exam normal. Negative drop arm and empty can sign. Biceps intact. She can push off her buttock and touch her mid thoracic spine. No crepitance. No redness or swelling. No motor or sensory loss of the arms or hands. Reflexes normal. documented in this encounter [facility] 04-16-2024 Instructions Mauro Tomlinson DO - 04/16/2024 7:30 AM EDT Blood pressure check with staff in 4 weeks documented in this encounter [facility] 03-14-2024 Note HNO ID: [id number] Author: LAURE BRIGGS, Research Coordinator Service: ? Author Type: Research Type: Progress Notes Filed: 03/14/2024 18:19 Note Text: DATE:March 14, 2024 PT. NAME: Devin Chapman [facility]#: [id number] IRB #: [id number]. PROTOCOL: [facility] Brain Study Cuff Maker: Myra Moses MD, , Chapin Becker MD, [facility] social contact worker for study related questions: Shaina Costa Subject continues to give consent for participation and for procedures related to study YES. Were there changes made to the informed consent since the last visit? YES. If yes, were changes reviewed and explained to subject? YES Was a new copy of the informed consent signed, placed in the chart, placed in the study file and was a copy given to the patient? YES Patient Identification was verified by asking the patient's Name and Date Of : YES Time: 15:18 Blood drawn with vacutainer and labs drawn per protocol. Butterfly removed after blood draw and secured with sterile gauze. Patient tolerated procedure well. Laure Briggs, Research Coordinator [facility] 03-14-2024 History of Present illness Narrative DATE:March 14, 2024 PT. NAME: Devin Chapman CC#: [id number] IRB #: [id number]. PROTOCOL: [facility] Brain Study Cuff Maker: Myra Moses MD, , Chapin Becker MD, [facility] social contact worker for study related questions: Shaina Costa Subject continues to give consent for participation and for procedures related to study YES. Were there changes made to the informed consent since the last visit? YES. If yes, were changes reviewed and explained to subject? YES Was a new copy of the informed consent signed, placed in the chart, placed in the study file and was a copy given to the patient? YES Patient Identification was verified by asking the patient's Name and Date Of : YES Time: 15:18 Blood drawn with vacutainer and labs drawn per protocol. Butterfly removed after blood draw and secured with sterile gauze. Patient tolerated procedure well. Laure Briggs, Research Coordinator documented in this encounter [facility] 03-14-2024 History of Present illness Narrative DATE: March 14, 2024 PT. NAME: Devin Chapman [facility]#: [id number] IRB #: [id number]. PROTOCOL: [facility] Brain Study Cuff Maker: Myra Moses MD, , Chapin Becker MD, [facility] social contact worker for study related questions: Shaina Costa Is today the participant's first study visit? Yes Were there changes made to the informed consent since the last visit? Not Applicable If yes, were changes reviewed and explained to subject? Not Applicable Was a new copy of the informed consent signed, placed in the chart, placed in the study file and was a copy given to the patient? Not Applicable Patient Identification was verified by asking the patients Name and Date Of : YES Subject continues to give consent for participation and for procedures related to study YES. Time: 1532 EKG/ECG was performed on patient. Patient tolerated procedure well. BP: 154 / 84 BP Site: left arm BP Position: sitting Cuff size: regular Pulse: 74 Resp: 16 SPO2: 99 Weight: 187 lbs Height: 5' 4 Result of Physical Exam Body System Eyes: Normal ,glasses Ears, Nose, Mouth and Throat: Normal Cardiovascular: Normal Respiratory: Normal Musculoskeletal: Normal Integumentary: Normal Handedness: Right hand Results of Mental Status Assessment Mental Assessments Attention: Abnormality Present: No Memory Working Memory: Abnormality Present: No Recent (Episodic) Memory: Abnormality Present: No Remote (Semantic) Memory: Abnormality Present: No Language Spontaneous Speech: Abnormality Present: No Comprehension: Abnormality Present: No Naming: Abnormality Present: No Repetition: Abnormality Present: No Reading: Abnormality Present: No Affect: Abnormality Present: No Craninal Nerve Assessment Visual Garcia: Normal EOM: Normal Nystagmus: Physiologic Pupils: Equal and reactive Ptosis: Absent Trigeminal: Normal CN VII: Normal CN VIII: Normal CN IX: Normal CN X: Normal CN XI: Normal CN XII: Normal Assessment of Motor and Bulk and Tones Motor Assessments Muscle bulk-global: Normal Muscle tone-global: Normal Motor Strength Assessment Shoulder flexion: Right 5 Left 5 Shoulder external rotation: Right 5 Left 5 Shoulder abduction: Right 5 Left 5 Shoulder adduction: Right 5 Left 5 Elbow flexion: Right 5 Left 5 Elbow extension: Right 5 Left 5 Wrist flexion: Right 5 Left 5 Wrist extension: Right 5 Left 5 Finger flexion/lock assembler: Right 4 Left 4 Flexor pollicis longus: Right 4 Left 4 Abductor pollicis brevis: Right 5 Left 5 Hip flexion: Right 5 Left 5 Hip extension: Right 5 Left 5 Hip abduction: Right 5 Left 5 Hip adduction: Right 5 Left 5 Knee flexion: Right 5 Left 5 Knee extension: Right 5 Left 5 Ankle eversion: Right 5 Left 5 Ankle inversion: Right 5 Left 5 Ankle plantar flexion: Right 5 Left 5 Ankle dorsiflexion: Right 5 Left 5 Extensor halluces longus: Right 5 Left 5 Flexor digitorum longus: Right 5 Left 5 Reflexes - MRC Grading Method Triceps: Right 2+ Left 2+ Biceps: Right 2+ Left 2+ Brachioradialis: Right 2+ Left 2+ Patellar: Right 2+ Left 2+ Achilles: Right 0 Left 0 Plantar: Right Downgoing Left Downgoing Weakness?: No Tremor: No Cerebellar/Coordination Assessment [id number]: Abnormality present: No, [id number]-wm-[id number]: Abnormality present: No, Finger Tapping - Abnormality present: No Fist Open/Close - Abnormality present: No Pronation/Supination of the Hand - Abnormality present: No Toe Tapping - Abnormality present: No Heel Tapping - Abnormality present: No Gait Gait-global assessment: Normal Toe Walk: Normal Heel Walk: Normal Tandem Walk: Normal Romberg: Negative (pass) Sensory/Sensation Sensory System-globlal assessment: Normal Morenita Kan APRN.CNP documented in this encounter [facility] 03-14-2024 Note HNO ID: [id number] Author: MORENITA KAN APRN.CNP Service: ? Author Type: Nurse Practitioner Type: Progress Notes Filed: 03/14/2024 16:28 Note Text: DATE: March 14, 2024 PT. NAME: Devin Chapman [facility]#: [id number] IRB #: [id number]. PROTOCOL: [facility] Brain Study Cuff Maker: Myra Moses MD, , Chapin Becker MD, [facility] social contact worker for study related questions: Shaina Costa Is today the participant's first study visit? Yes Were there changes made to the informed consent since the last visit? Not Applicable If yes, were changes reviewed and explained to subject? Not Applicable Was a new copy of the informed consent signed, placed in the chart, placed in the study file and was a copy given to the patient? Not Applicable Patient Identification was verified by asking the patients Name and Date Of : YES Subject continues to give consent for participation and for procedures related to study YES. Time: 1532 EKG/ECG was performed on patient. Patient tolerated procedure well. BP: 154 / 84 BP Site: left arm BP Position: sitting Cuff size: regular Pulse: 74 Resp: 16 SPO2: 99 Weight: 187 lbs Height: 5' 4 Result of Physical Exam Body System Eyes: Normal ,glasses Ears, Nose, Mouth and Throat: Normal Cardiovascular: Normal Respiratory: Normal Musculoskeletal: Normal Integumentary: Normal Handedness: Right hand Results of Mental Status Assessment Mental Assessments Attention: Abnormality Present: No Memory Working Memory: Abnormality Present: No Recent (Episodic) Memory: Abnormality Present: No Remote (Semantic) Memory: Abnormality Present: No Language Spontaneous Speech: Abnormality Present: No Comprehension: Abnormality Present: No Naming: Abnormality Present: No Repetition: Abnormality Present: No Reading: Abnormality Present: No Affect: Abnormality Present: No Craninal Nerve Assessment Visual Garcia: Normal EOM: Normal Nystagmus: Physiologic Pupils: Equal and reactive Ptosis: Absent Trigeminal: Normal CN VII: Normal CN VIII: Normal CN IX: Normal CN X: Normal CN XI: Normal CN XII: Normal Assessment of Motor and Bulk and Tones Motor Assessments Muscle bulk-global: Normal Muscle tone-global: Normal Motor Strength Assessment Shoulder flexion: Right 5 Left 5 Shoulder external rotation: Right 5 Left 5 Shoulder abduction: Right 5 Left 5 Shoulder adduction: Right 5 Left 5 Elbow flexion: Right 5 Left 5 Elbow extension: Right 5 Left 5 Wrist flexion: Right 5 Left 5 Wrist extension: Right 5 Left 5 Finger flexion/lock assembler: Right 4 Left 4 Flexor pollicis longus: Right 4 Left 4 Abductor pollicis brevis: Right 5 Left 5 Hip flexion: Right 5 Left 5 Hip extension: Right 5 Left 5 Hip abduction: Right 5 Left 5 Hip adduction: Right 5 Left 5 Knee flexion: Right 5 Left 5 Knee extension: Right 5 Left 5 Ankle eversion: Right 5 Left 5 Ankle inversion: Right 5 Left 5 Ankle plantar flexion: Right 5 Left 5 Ankle dorsiflexion: Right 5 Left 5 Extensor halluces longus: Right 5 Left 5 Flexor digitorum longus: Right 5 Left 5 Reflexes - MRC Grading Method Triceps: Right 2+ Left 2+ Biceps: Right 2+ Left 2+ Brachioradialis: Right 2+ Left 2+ Patellar: Right 2+ Left 2+ Achilles: Right 0 Left 0 Plantar: Right Downgoing Left Downgoing Weakness?: No Tremor: No Cerebellar/Coordination Assessment [id number]: Abnormality present: No, [id number]: Abnormality present: No, Finger Tapping - Abnormality present: No Fist Open/Close - Abnormality present: No Pronation/Supination of the Hand - Abnormality present: No Toe Tapping - Abnormality present: No Heel Tapping - Abnormality present: No Gait Gait-global assessment: Normal Toe Walk: Normal Heel Walk: Normal Tandem Walk: Normal Romberg: Negative (pass) Sensory/Sensation Sensory System-globlal assessment: Normal Morenita Kan APRN.CNP [facility] 02-24-2024 History of Present illness Narrative Images from the original note were not included. [address] [facility] [phone] @[email or web address]@ Patient arrived for nurse visit today. Two patient identifiers used to confirm correct patient yes Supervising provider for clinic visit Dr. Tomlinson is currently not taking any anti- hypertensive medications regular Shortness of breath no Medication compliance no Medication Reconciliation no BP Medication taken prior to visit NO at what time n/a B/P Reading taken Manual Home Monitoring no Patient advised if follow up is needed, outreach will occur in 48 hours BP:124/82 HR:77 BP ok, no rx changes nec documented in this encounter [facility] 01-27-2024 History of Present illness Narrative Images from the original note were not included. [facility] [address] [place] [address] [address] [facility] [phone] Visit type: Established Patient Reason for Visit: Follow-up (Med check) Assessment / Plan: Devin was seen today for follow-up. Diagnoses and all orders for this visit: Labile essential hypertension (Primary) Comments: Noted, patient defers meds. Recheck BP in 4 to 5 weeks Hypercholesterolemia Comments: Defers treatment. Continue low-fat meals and OTC red bruits use. Check lab 6 to 12 months Post-surgical hypothyroidism Subjective: Patient ID: Devin Chapman is a 68 y.o. female. HPI non-smoker presents for discussion on hyperlipidemia and labile hypertension. Recent LDL is markedly lower. Euthyroid on her endocrine workup. Overall she feels well. No family history of premature heart disease. Review of Systems feeling well. Continues not to smoke or drink excessively. Active with golfing and exercise. No exertional chest pain dyspnea palpitations. Of note labile hypertension for a while and had an DEVON inhibitor cough. No heartburn or dysphagia. No bowel changes. Question about timing of mammogram should be done every year or every other year. Colonoscopy up-to-date. Due in 4 more years Allergies Allergen Reactions Lisinopril Cough cough Pedi-Pre Tape [place] [Wound Dressing Adhesive] Current Outpatient Medications on File Prior to Visit Medication Sig Dispense Refill alendronate (Fosamax) 70 MG tablet Take 70 mg by mouth once a week. cetirizine (ZyrTEC) 10 MG tablet Take 1 tablet (10 mg) by mouth daily. 90 tablet 3 cholecalciferol (Vitamin D-3) 25 MCG (1000 UT) capsule Take 5,000 Units by mouth in the morning. Synthroid 75 MCG tablet [DISCONTINUED] fluticasone (Flonase) 50 MCG/ACT nasal spray Administer 2 sprays into each nostril 2 times daily. Shake gently. Before first use, prime pump. After use, clean tip and replace cap. (Patient not taking: Reported on 01/27/2024) 16 g 1 No current facility-administered medications on file prior to visit. Patient Active Problem List Diagnosis Hypercholesterolemia Medullary sponge kidney History of hyperparathyroidism Labile essential hypertension Post-surgical hypothyroidism H/O colonoscopy with polypectomy Cough secondary to angiotensin converting enzyme inhibitor (DEVON-I) Osteopenia Social History Tobacco Use Smoking status: Never Smokeless tobacco: Never Substance Use Topics Alcohol use: No Alcohol/week: 0.0 standard drinks of alcohol Past Surgical History: Procedure Laterality Date SECTION (HISTORICAL) 3 pregnancies COLONOSCOPY 2016 2016 COLONOSCOPY W/ POLYPECTOMY 11/2022 Pj- due 2027 PARATHYROIDECTOMY Right 2003 Right sup lesion TUBAL LIGATION Family History Problem Relation Name Age of Onset Dementia Mother 80 age 91 High Blood Pressure Mother Depression Father in 90s No Known Problems Sister No Known Problems Sister No Known Problems Brother No Known Problems Brother No Known Problems Brother No Known Problems Maternal Grandmother age 99 Alcohol abuse Maternal Grandfather in 60 No Known Problems Paternal Grandmother in 90s No Known Problems Paternal Grandfather Ovarian cancer Neg Hx Colon cancer Neg Hx Breast cancer Neg Hx Uterine cancer Neg Hx Objective: BP (!) 144/92 Pulse 72 Temp 36.1 C (97 F) (Temporal) Ht 5' 4 (1.626 m) Wt 161 lb (73 kg) SpO2 96% BMI 27.64 kg/m Physical Exam exam is unchanged. Blood pressure is too high. No JVD adenopathy or thyroid lesions. Reflexes normal. Heart is regular gallops murmurs or ectopy. Lungs are clear. Abdomen without pain hepatosplenomegaly masses bruits or ascites. Femoral and pedal pulses are good. No leg edema documented in this encounter [facility] 01-27-2024 Instructions Mauro Tomlinson DO - 01/27/2024 8:30 AM EDT Continue aggressive low-fat meals and exercise and weight loss. May try [id number] red-blue yeast at 1200 mg twice a day for lipid-lowering purposes. Recheck blood pressure as discussed documented in this encounter [facility] 01-23-2024 Telephone encounter Note Patient reviewed message on [facility]. Closed. [facility] 01-23-2024 Miscellaneous Notes Patient reviewed message on [facility]. Closed. Patient is active on [employer]- message sent. Advised to call or message in [employer] with any questions about changes Please tell her labs look good but cholesterol too high, she should start a statin (rosuvastatin 20 mg daily). Let me know if she is agreeable and I will prescribe. Thanks documented in this encounter [facility] 01-20-2024 Telephone encounter Note Patient is active on [employer]- message sent. Advised to call or message in [employer] with any questions about changes [facility] 01-20-2024 Telephone encounter Note Please tell her labs look good but cholesterol too high, she should start a statin (rosuvastatin 20 mg daily). Let me know if she is agreeable and I will prescribe. Thanks [facility] 01-19-2024 Instructions Ryan Barbosa MD - 01/19/2024 8:31 AM EDT Get labs done at [facility]. Will call with results. See me again in 12 months. documented in this encounter [facility] 01-19-2024 History of Present illness Narrative Follow-up 68 year-old retired female, patient of Dr. Mauro Tomlinson, with primary hypothyroidism, osteopenia, and hypertension. Takes levothyroxine six days a week. She has past history of primary hyperparathyroidism, s/p right superior parathyroidectomy in 05/30, medullary sponge kidney with history of nephrocalcinosis and nephrolithiasis. Medication list reviewed, reconciled. Patient reports feeling well. No height loss or fragility fractures noted this year. No history of hypertension. No neck swelling, dysphagia. Has family history of osteoporosis. Maximal adult height is 65. Had COVID vaccination and flu shot. No longer on lisinopril (cough). Current Outpatient Medications on File Prior to Visit Medication Sig alendronate (FOSAMAX) 70 mg tablet TAKE 1 TABLET BY MOUTH ONCE A WEEK IN THE MORNING WITH CUP OF WATER ON AN EMPTY STOMACH. NOTHING ELSE BY MOUTH AND STAY UPRIGHT FOR 30 MINUTES levothyroxine (SYNTHROID) 75 mcg tablet Take one pill daily, no pill on Sundays. cholecalciferol (VITAMIN D-3) 5,000 unit tab Take 1 tablet by mouth once daily. Review of patient's allergies indicates: No Known Allergies Review of systems: Patient notes no weight changes, fever, fatigue, weakness, change in balance or sensation, visual problems, hearing changes, dizziness, trouble swallowing, nasal difficulties, shortness of breath, chest pain, change in exertional tolerance, foot or leg problems, skin lesions, abdominal pain, diarrhea, constipation, urinary problems, incontinence, back pain, joint pains, anxiety, depression, insomnia, menstrual difficulties, breast lesions/pain/mass. Remainder of review of systems was unremarkable. BP 146/86 Pulse (!) 59 Ht 163.5 cm (5' 4.37) Wt 73.2 kg (161 lb 6 oz) SpO2 96% BMI 27.38 kg/m Weight unchanged since 06/2022. Height stable. General appearance: Well-appearing overweight (BMI > 25) female, alert, in no acute distress, well-hydrated, well nourished. BP elevated Repeat BP 123/79 Skin: Skin color, texture, turgor normal, no suspicious rashes or lesions Head: normocephalic, no masses, lesions, tenderness or abnormalities Eyes: Anicteric sclera. Pupils are equally round. Extraocular movements are intact. Ears: not examined Nose/Sinuses: Nares normal. No drainage or sinus tenderness. Oropharynx: Lips, mucosa, and tongue normal, teeth and gums not examined. Neck: Supple, no adenopathy; no palpable thyroid enlargement. Well-healed thyroidectomy incision. Lungs: Breathing unlabored. Heart: RRR. No ectopy Abdomen: deferred Extremities: No deformities, edema, skin discoloration, clubbing or cyanosis. Good capillary refill. Musculoskeletal: Spine range of motion not tested. Muscular strength intact, No joint swelling, deformity, or tenderness Neuro: Gait normal. Sensation grossly intact. DEXA bone densitometry in 06/2019 showed T-scores as follows: lumbar -0.8 (up 5%), hip -1.1 (up 5%), femoral neck -1.8 (unchanged). DEXA bone densitometry in 07/2021 showed T-scores as follows: lumbar -0.6, hip -1.3, femoral neck -2.0. FRAX 1.8/20.3 IMPRESSION: Osteopenia - height stable, but has increased FRAX risk score. Start bisphosphonate. Hypothyroidism - check TSH, free T4 on the current levothyroxine dose Vitamin D deficiency - check vitamin D status Medullary sponge kidney - check CMP Hyperlipidemia - check lipid panel PLAN: Check TSH, free T4, lipid panel, 25-hydroxyvitamin D level, and CMP Will call with results Continue alendronate 70 mg once weekly - take on empty stomach with large glass of water only. Take no other pills or food, no lying down for 30 minutes. RTO in [address] French for regular health care needs Ryan Barbosa MD, FACP I spent a total of 30 minutes on the date of service which included preparing to see the patient, [id number] patient care, completing clinical documentation, performing a medically appropriate examination, counseling and educating the patient/family/caregiver and ordering medications, tests, or procedures. documented in this encounter [facility] 12-01-2023 Telephone encounter Note 30 days sent until patient shows for January 18 appt. Patient has not been seen since 2021 [facility] 12-01-2023 Miscellaneous Notes 30 days sent until patient shows for January 18 appt. Patient has not been seen since 2021 documented in this encounter [facility] 11-25-2023 History of Present illness Narrative Devin Chapman 11/25/2023 68 y.o. Chief Complaint Patient presents with Annual Exam Annual exam No LMP recorded. Patient is postmenopausal. Primary Care Physician: Mauro Tomlinson DO The patient was seen and examined. She is here for her annual exam. Pap neg/neg 2021. Mg 12/17 wnl. Colonoscopy 2022 polyps rescheduled 2027. dexa 2021 osteopenia primary care. Fosamax through primary. HPI : Devin Chapman is a 68 y.o. female ____ OB History Para Term AB Living 6 3 3 SAB IAB Ectopic Multiple Live Births 3 # Outcome Date GA Lbr Malcolm/2nd Weight Sex Delivery Anes PTL Lv 6 Term 5 Term 4 Term 3 CS-Unspec 2 CS-Unspec 1 CS-Unspec Past Medical History: Diagnosis Date Breast cancer screening by mammogram 11/2022 [place] Cough secondary to angiotensin converting enzyme inhibitor (DEVON-I) 07/25/2023 H/O colonoscopy with polypectomy 11/2022- due 2027 History of hyperparathyroidism 2002 s/p Rt sup parathyroidectomy History of mononucleosis Hypercholesterolemia Medullary sponge kidney History of nephrocalcinosis/lithiasis Osteopenia Primary hypothyroidism 2003 [facility] Statin intolerance Past Surgical History: Procedure Laterality Date SECTION (HISTORICAL) 3 pregnancies COLONOSCOPY 2016 2016 COLONOSCOPY W/ POLYPECTOMY 11/2022- due 2027 PARATHYROIDECTOMY Right 2002 Right sup lesion TUBAL LIGATION Family History Problem Relation Name Age of Onset Dementia Mother 75 age 91 High Blood Pressure Mother Depression Father in 90s No Known Problems Sister No Known Problems Sister No Known Problems Brother No Known Problems Brother No Known Problems Brother No Known Problems Maternal Grandmother age 99 Alcohol abuse Maternal Grandfather in 60 No Known Problems Paternal Grandmother in 90s No Known Problems Paternal Grandfather Ovarian cancer Neg Hx Colon cancer Neg Hx Breast cancer Neg Hx Uterine cancer Neg Hx Social History Socioeconomic History Marital status: Spouse name: Not on file Number of children: Not on file Years of education: Not on file Highest education level: Not on file Occupational History Not on file Tobacco Use Smoking status: Never Smokeless tobacco: Never Vaping Use Vaping Use: Never used Substance and Sexual Activity Alcohol use: No Alcohol/week: 0.0 standard drinks of alcohol Drug use: No Sexual activity: Not on file Other Topics Concern Not on file Social History Narrative to Ferdinand (Hx of CAD) NS or drinker, Has 3 dtrs, first GD born in 01/2022. 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 Social Determinants of Health Financial Resource Strain: Not on file Food Insecurity: Not on file Transportation Needs: Not on file Physical Activity: Not on file Stress: Not on file Social Connections: Not on file Intimate Partner Violence: Not on file Housing Stability: Not on file MEDICATIONS: Current Outpatient Medications Medication Sig Dispense Refill alendronate (Fosamax) 70 MG tablet Take 70 mg by mouth once a week. cetirizine (ZyrTEC) 10 MG tablet Take 1 tablet (10 mg) by mouth daily. 90 tablet 3 cholecalciferol (Vitamin D-3) 25 MCG (1000 UT) capsule Take 5,000 Units by mouth in the morning. fluticasone (Flonase) 50 MCG/ACT nasal spray Administer 2 sprays into each nostril 2 times daily. Shake gently. Before first use, prime pump. After use, clean tip and replace cap. 16 g 1 Synthroid 75 MCG tablet No current facility-administered medications for this visit. ALLERGIES: Allergies as of 11/25/2023 - Reviewed 11/25/2023 Allergen Reaction Noted Lisinopril Cough 07/25/2023 Pedi-pre tape spray [wound dressing adhesive] 11/10/2020 GynecologicHistory: Menstrual History: No LMP recorded. Patient is postmenopausal. ____ Review of Systems Constitutional: Negative for fatigue, fever and unexpected weight change. HENT: Negative for congestion and sore throat. Eyes: Negative for discharge and visual disturbance. Respiratory: Negative for cough and shortness of breath. Cardiovascular: Negative for chest pain and leg swelling. Gastrointestinal: Negative for abdominal pain, constipation, diarrhea, nausea and vomiting. Genitourinary: Negative for dysuria and pelvic pain. Musculoskeletal: Negative for arthralgias and back pain. Skin: Negative for rash. Neurological: Negative for weakness and headaches. Psychiatric/Behavioral: Negative for dysphoric mood. The patient is not nervous/anxious. PHYSICAL Exam: Constitutional: Vitals: 11/25/23 0933 BP: 131/81 Pulse: 64 Weight: 165 lb (74.8 kg) Height: 5' 5 (1.651 m) Physical Exam Constitutional: General: She is not in acute distress. Appearance: Normal appearance. HENT: Head: Normocephalic and atraumatic. Right Ear: External ear normal. Left Ear: External ear normal. Nose: Nose normal. Eyes: Conjunctiva/sclera: Conjunctivae normal. Neck: Thyroid: No thyromegaly. Cardiovascular: Rate and Rhythm: Normal rate. Pulmonary: Effort: Pulmonary effort is normal. No respiratory distress. Chest: Breasts: Right: No mass, nipple discharge, skin change or tenderness. Left: No mass, nipple discharge, skin change or tenderness. Abdominal: General: There is no distension. Palpations: Abdomen is soft. Tenderness: There is no abdominal tenderness. Genitourinary: General: Normal vulva. Pubic Area: No rash. Labia: Right: No rash or lesion. Left: No rash or lesion. Vagina: No vaginal discharge or bleeding. Cervix: No cervical motion tenderness. Uterus: Not enlarged and not tender. Adnexa: Right: No mass or tenderness. Left: No mass or tenderness. Rectum: Normal. Musculoskeletal: General: No swelling. Normal range of motion. Cervical back: Normal range of motion. Right lower leg: No edema. Left lower leg: No edema. Skin: General: Skin is warm and dry. Neurological: Mental Status: She is alert and oriented to person, place, and time. Mental status is at baseline. Psychiatric: Mood and Affect: Mood normal. Behavior: Behavior normal. ASSESSMENT: 68 y.o. Annual Diagnosis Plan 1. Women's annual routine gynecological examination 2. Encounter for screening mammogram for malignant neoplasm of breast Bilateral screening mammogram with tomosynthesis Chief Complaint Patient presents with Annual Exam Annual exam Past Medical History: Diagnosis Date Breast cancer screening by mammogram 11/2022 [place] Cough secondary to angiotensin converting enzyme inhibitor (DEVON-I) 07/25/2023 H/O colonoscopy with polypectomy 11/2022 Pj- due 2027 History of hyperparathyroidism 2002 s/p Rt sup parathyroidectomy History of mononucleosis Hypercholesterolemia Medullary sponge kidney History of nephrocalcinosis/lithiasis Osteopenia Primary hypothyroidism 2003 Replaced By [facility] Statin intolerance Hereditary Breast, Ovarian, Colon and Uterine Cancer screening Done. Tobacco & Secondary smoke risks reviewed; instructed on cessation and avoidance PLAN: Follow up in about 1 year (around 11/24/2024) for annual. Repeat Annual every 1 year PAP guidelines reviewed with pt Mammograms annually if normal. Bone density and colonoscopy recommendations reviewed with patient. Routine health maintenance per patients PCP. Orders Placed This Encounter Procedures Bilateral screening mammogram with tomosynthesis Standing Status: Future Standing Expiration Date: 01/24/2025 documented in this encounter [facility] 07-29-2023 Telephone encounter Note Rx loaded [facility] 07-29-2023 Miscellaneous Notes Rx loaded documented in this encounter [facility] 07-25-2023 History of Present illness Narrative Images from the original note were not included. [facility] [address] [place] [address] [address] [facility] [id number] Visit type: Established Patient Reason for Visit: Follow-up (6 month med check) Assessment / Plan: Devin was seen today for follow-up. Diagnoses and all orders for this visit: Hypercholesterolemia (Primary) Comments: Uncontrolled, check lab. Better low-fat meals possible alternate statin therapy. Orders: - Cancel: Lipid panel; Future - Cancel: Lipid panel - Lipid panel; Future Cough secondary to angiotensin converting enzyme inhibitor (DEVON-I) Labile essential hypertension Comments: Improved, conservative measures Orders: - Cancel: CBC auto differential; Future - Cancel: Comprehensive metabolic panel; Future - Cancel: CBC auto differential - Cancel: Comprehensive metabolic panel - Comprehensive metabolic panel; Future - CBC auto differential; Future Primary hypothyroidism Comments: Stable, check labs and continue Levothyroid Orders: - Cancel: TSH; Future - Cancel: T4, free; Future - Cancel: TSH - Cancel: T4, free - T4, free; Future - TSH; Future Vitamin D deficiency - Cancel: Vitamin D Deficiency Screening (Vit D 25); Future - Cancel: Vitamin D Deficiency Screening (Vit D 25) - Vitamin D Deficiency Screening (Vit D 25); Future Osteopenia, unspecified location Comments: Stable, continue Fosamax, vitamin D and weightbearing exercise 35 Minutes spent on reviewing pertinent history, patient interview, physical exam, discussion of diagnosis and treatment and work-up options. Subjective: Patient ID: Devin Chapman is a 68 y.o. female. HPI patient with history of hypothyroidism, hyperparathyroidism with hyperlipidemia presents for first-time evaluation by myself. Past medical, surgical, family and social history reviewed and chart updated appropriately. Overall she is feeling well. Wishes to stay off lipid-lowering drugs if she can. Has been off lisinopril for which she got a cough a few months and blood pressure readings at home are high normal. Weight is stable. Will be seeing tag maker this coming summer. PROSTHETIC DENTIST with breast exam is up-to-date. Colonoscopy up-to-date and colonoscopy done this past November is not due for 5 more years Review of Systems denies night sweats fevers or chills. No chronic headaches or ill feeling. Cough resolved after stopping lisinopril. No exertional dyspnea chest pain or palpitations. No heartburn or dysphagia. No abdominal pain. Bowels are regular. No melena or blood. No post menopausal bleeding. Rare arthralgia. History of osteopenia and takes Fosamax and vitamin D. Tries to exercise routinely. Body aches with Lipitor. That is only statin she has been on. No strong family history of coronary disease. Allergies Allergen Reactions Lisinopril Cough cough Pedi-Pre Tape [place] [Wound Dressing Adhesive] Current Outpatient Medications on File Prior to Visit Medication Sig Dispense Refill alendronate (Fosamax) 70 MG tablet Take 70 mg by mouth once a week. cetirizine (ZyrTEC) 10 MG tablet Take 1 tablet (10 mg) by mouth daily. 60 tablet 0 cholecalciferol (Vitamin D-3) 25 MCG (1000 UT) capsule Take 5,000 Units by mouth in the morning. fluticasone (Flonase) 50 MCG/ACT nasal spray Administer 2 sprays into each nostril 2 times daily. Shake gently. Before first use, prime pump. After use, clean tip and replace cap. 16 g 1 Synthroid 75 MCG tablet [DISCONTINUED] lisinopril 5 MG tablet Take 1 tablet (5 mg) by mouth daily. (Patient not taking: Reported on 07/25/2023) 90 tablet 1 [DISCONTINUED] omega-3 (Fish Oil) 1000 MG capsule Take 3,000 mg by mouth. [DISCONTINUED] Red Yeast Rice Extract (RED YEAST RICE PO) Take 600 mg by mouth daily. No current facility-administered medications on file prior to visit. Patient Active Problem List Diagnosis Hypercholesterolemia Primary hypothyroidism Medullary sponge kidney History of hyperparathyroidism Labile essential hypertension Post-surgical hypothyroidism H/O colonoscopy with polypectomy Cough secondary to angiotensin converting enzyme inhibitor (DEVON-I) Osteopenia Social History Tobacco Use Smoking status: Never Smokeless tobacco: Never Substance Use Topics Alcohol use: No Alcohol/week: 0.0 standard drinks of alcohol Past Surgical History: Procedure Laterality Date SECTION (HISTORICAL) 3 pregnancies COLONOSCOPY 2016 2016 COLONOSCOPY W/ POLYPECTOMY 11/2022 Pj- due 2027 PARATHYROIDECTOMY Right 2003 Right sup lesion TUBAL LIGATION Family History Problem Relation Name Age of Onset Dementia Mother 75 age 91 High Blood Pressure Mother Depression Father in 90s No Known Problems Sister No Known Problems Sister No Known Problems Brother No Known Problems Brother No Known Problems Brother No Known Problems Maternal Grandmother age 99 Alcohol abuse Maternal Grandfather in 60 No Known Problems Paternal Grandmother in 90s No Known Problems Paternal Grandfather Ovarian cancer Neg Hx Colon cancer Neg Hx Breast cancer Neg Hx Uterine cancer Neg Hx Objective: BP 136/86 Pulse 68 Temp 36.3 C (97.3 F) (Temporal) Ht 5' 5 (1.651 m) Wt 165 lb (74.8 kg) SpO2 97% BMI 27.46 kg/m Physical Exam The physical exam is generally normal. Patient appears well, alert and oriented x 3, pleasant, cooperative. Vitals are as noted. No carotid bruits. Neck supple, no abnormal adenopathy, thyroid lesions or masses. Ears, nose and throat are normal without acute findings. Lungs are clear to auscultation. Heart is regular, without murmurs, gallops or ectopy. Abdomen is soft, non tender, without masses, hepatosplenomegaly, or bruits. Normal BS evident. Extremities are normal without edema. Peripheral pulses are fair. No worrisome skin lesions. Screening neurological exam is normal without focal deficits. documented in this encounter [facility] 04-29-2023 Telephone encounter Note Recent Visits Date Type Provider Dept 01/16/23 Office Visit LAURI Flaherty 11/13/22 Office Visit LAURI Flaherty 07/18/22 Office Visit Keshawn French DO [facility] 06/07/22 Office Visit Rich Santizo PA-[facility] Showing recent visits within past 365 days and meeting all other requirements Future Appointments Date Type Provider Dept 07/17/23 Appointment Mauro Tomlinson, [facility] Showing future appointments within next 90 days and meeting all other requirements Requested Prescriptions Pending Prescriptions Disp Refills fluticasone (Flonase) 50 MCG/ACT nasal spray 16 g 1 Sig: Administer 2 sprays into each nostril 2 times daily. Shake gently. Before first use, prime pump. After use, clean tip and replace cap. Verified pharmacy: yes Verified day(s) supplied: yes Verified refill(s) needed (previous prescription showing no refills in chart): Yes [facility] 04-29-2023 Miscellaneous Notes Recent Visits Date Type Provider Dept 01/16/23 Office Visit Rich Santizo PA-C [facility] 11/13/22 Office Visit [facility] 07/18/22 Office Visit Keshawn French, [facility] 06/07/22 Office Visit [facility] Showing recent visits within past 365 days and meeting all other requirements Future Appointments Date Type Provider Dept 07/17/23 Appointment Mauro Tomlinson DO [facility] Showing future appointments within next 90 days and meeting all other requirements Requested Prescriptions Pending Prescriptions Disp Refills fluticasone (Flonase) 50 MCG/ACT nasal spray 16 g 1 Sig: Administer 2 sprays into each nostril 2 times daily. Shake gently. Before first use, prime pump. After use, clean tip and replace cap. Verified pharmacy: yes Verified day(s) supplied: yes Verified refill(s) needed (previous prescription showing no refills in chart): Yes documented in this encounter [facility] 04-14-2023 Telephone encounter Note Last OV:01/16/23 Scheduled:07/17/23 [facility] 04-14-2023 Miscellaneous Notes Last OV:01/16/23 Scheduled:07/17/23 documented in this encounter [facility] 01-24-2023 Telephone encounter Note Rx loaded [facility] 01-24-2023 Miscellaneous Notes Rx loaded Ordering provider: Dr. Tomlinson Date of last office visit: 01/16/23 Date of next office visit: 07/17/23 Updated/Validated preferred pharmacy: Yes [facility] - [place], [place] - [address] [phone] Patient instructed to contact the pharmacy prior to picking up the medication: Yes (1) Medication name: cetirizine (ZyrTEC) 10 MG tablet Medication dosage: 10 mg (Miligrams Monthly quantity needed: 30 How many day supply requestin days Medication route: oral (PO) Medication administration time(s): daily If taking medication PRN, reason for taking medication: N/A If this is a controlled substance do you receive this or any other controlled medication from any other doctor or facility: N/A Date of last refill (see medication tab): 11/13/22 (2) Medication name: fluticasone (Flonase) 50 MCG/ACT nasal spray Medication dosage: 50 MCG?ACT spray Monthly quantity needed: 1 How many day supply requestin days Medication route: nasal (nose) Medication administration time(s): 2 times a day (BID) Administer 2 sprays into each nostril 2 times daily. Shake gently. Before first use, prime pump. After use, clean tip and replace cap. If taking medication PRN, reason for taking medication: N/A If this is a controlled substance do you receive this or any other controlled medication from any other doctor or facility: N/A Date of last refill (see medication tab): 11/13/22 documented in this encounter [facility] 01-24-2023 Telephone encounter Note Ordering provider: Dr. Tomlinson Date of last office visit: 01/16/23 Date of next office visit: 07/17/23 Updated/Validated preferred pharmacy: Yes [facility] - [place], [place] - [address] [phone] Patient instructed to contact the pharmacy prior to picking up the medication: Yes (1) Medication name: cetirizine (ZyrTEC) 10 MG tablet Medication dosage: 10 mg (Miligrams Monthly quantity needed: 30 How many day supply requestin days Medication route: oral (PO) Medication administration time(s): daily If taking medication PRN, reason for taking medication: N/A If this is a controlled substance do you receive this or any other controlled medication from any other doctor or facility: N/A Date of last refill (see medication tab): 11/13/22 (2) Medication name: fluticasone (Flonase) 50 MCG/ACT nasal spray Medication dosage: 50 MCG?ACT spray Monthly quantity needed: 1 How many day supply requestin days Medication route: nasal (nose) Medication administration time(s): 2 times a day (BID) Administer 2 sprays into each nostril 2 times daily. Shake gently. Before first use, prime pump. After use, clean tip and replace cap. If taking medication PRN, reason for taking medication: N/A If this is a controlled substance do you receive this or any other controlled medication from any other doctor or facility: N/A Date of last refill (see medication tab): 11/13/22 [facility] 01-16-2023 Evaluation + Plan note Associated Problem(s): Hypercholesterolemia - History of hyperlipidemia with elevated total cholesterol and LDL levels. HDL levels were previously at 58. - Patient was previously intolerant to statin medication so she is continue to try red yeast rice would prefer to continue on this currently only taking 600 mg daily we will consider higher doses based on current lipid levels. [facility] 01-16-2023 Miscellaneous Notes Associated Problem(s): Hypercholesterolemia - History of hyperlipidemia with elevated total cholesterol and LDL levels. HDL levels were previously at 58. - Patient was previously intolerant to statin medication so she is continue to try red yeast rice would prefer to continue on this currently only taking 600 mg daily we will consider higher doses based on current lipid levels. Associated Problem(s): Essential hypertension - History of hypertension well-controlled on low-dose lisinopril 5 mg daily. Patient has had a persistent cough since the onset of starting the lisinopril. - Patient is requesting to stop the medication and see how her blood pressure remains off the medications and if the cough clears, agreeable to this approach patient will continue to monitor blood pressures in the morning and report them back to the office. documented in this encounter [facility] 01-16-2023 Evaluation + Plan note Associated Problem(s): Essential hypertension - History of hypertension well-controlled on low-dose lisinopril 5 mg daily. Patient has had a persistent cough since the onset of starting the lisinopril. - Patient is requesting to stop the medication and see how her blood pressure remains off the medications and if the cough clears, agreeable to this approach patient will continue to monitor blood pressures in the morning and report them back to the office. [facility] 01-16-2023 History of Present illness Narrative Images from the original note were not included. [facility] [address] [facility] [address] Dept: [phone] Dept Loc: [phone] Visit type: Established Patient Reason for Visit: Follow-up (6 month) Assessment and Plan 1. Essential hypertension Assessment & Plan: - History of hypertension well-controlled on low-dose lisinopril 5 mg daily. Patient has had a persistent cough since the onset of starting the lisinopril. - Patient is requesting to stop the medication and see how her blood pressure remains off the medications and if the cough clears, agreeable to this approach patient will continue to monitor blood pressures in the morning and report them back to the office. Orders: - Comprehensive metabolic panel 2. Hypercholesterolemia Assessment & Plan: - History of hyperlipidemia with elevated total cholesterol and LDL levels. HDL levels were previously at 58. - Patient was previously intolerant to statin medication so she is continue to try red yeast rice would prefer to continue on this currently only taking 600 mg daily we will consider higher doses based on current lipid levels. 3. Screening for diabetes mellitus - Comprehensive metabolic panel 4. Chest pressure - ECG 12 lead 5. Statin intolerance 6. Polyp of ascending colon, unspecified type Comments: Benign colon polyps removed 12/18/2022 recommend 5-year follow-up. Patient reports occasional and periodic chest pressure could be possibly related to GERD as she does eat some hot and spicy foods from time to time. However she is concerned because her had a recent cardiac event in May to make sure that she is healthy. We did do an ASCVD risk factor for her given her current scenario based on previous numbers 6 months ago her risk factors at 7.8% we did talk about restratification some modifications. Patient was comfortable with this. Because of the intermittent chest pressure we did discuss getting a calcium score as well as doing an EKG in the office today to make sure there is no signs of acute electrical abnormalities patient was comfortable with this approach as well. Follow up in about 6 months (around 07/18/2023). Subjective HPI this is a 67-year-old female with underlying history of hypothyroidism, HLD, medullary sponge kidney who who allegedly tested positive for COVID approximately 2 weeks ago contacted the office for advisement and she was advised that she would need an appointment she never scheduled at that point time. She was seen previously several months ago for ongoing sinus congestion. She comes in today for 6-month follow-up. Patient had some baseline labs ordered back in July has yet to have them completed we will encourage her to get those done today. Patient otherwise states she is doing good she is primary concern she does states some days she feels a little lightheaded little woozy from time to time was not sure if it is secondary to her medications or something worse was going on. She also think she is got her supple more anxious that she is more cognizant of heart disease as her had a cardiac event in May. She is going to make sure that she has no cardiac issues she does states she gets some chest pressure from time to time but is very short-lived but also recognizes that it could be related to acid reflux. She does state ever since she started lisinopril about a year ago it is only 5 mg which she feels like she has had an persistent dry cough since then she is requesting to come off the medication and see how her blood pressure maintains. She states life is changed she is currently retired when she started the medication she was currently working and under more stress so she feels that that plays a factor in this. She also had a recent colonoscopy done a month and a half ago which did show 2 benign polyps which were removed recommending a 5-year follow-up. She continues to follow-up with endocrinology TSH levels were done in June at 0.955. Currently she is eating and drinking appropriately. She denies any leg pain calf pain swelling or shortness of breath no current chest pain or palpitations no fever no chills no other acute concerns. Review of Systems Constitutional: Negative for chills and fever. HENT: Negative for congestion and sore throat. Respiratory: Negative for cough and shortness of breath. Cardiovascular: Negative for chest pain (Occasional chest pressure but nothing currently.). Gastrointestinal: Negative for abdominal pain, diarrhea, nausea and vomiting. Genitourinary: Negative for difficulty urinating, dysuria, frequency and urgency. Musculoskeletal: Negative for back pain. Neurological: Positive for light-headedness (Described more as an occasional woozy feeling). Negative for dizziness. All other systems reviewed and are negative. Allergies Allergen Reactions Pedi-Pre Tape [place] [Wound Dressing Adhesive] Outpatient Medications Prior to Visit Medication Sig Dispense Refill alendronate (Fosamax) 70 MG tablet Take 70 mg by mouth once a week. cetirizine (ZyrTEC) 10 MG tablet Take 1 tablet (10 mg) by mouth daily. 30 tablet 1 cholecalciferol (Vitamin D-3) 25 MCG (1000 UT) capsule Take 5,000 Units by mouth in the morning. fluticasone (Flonase) 50 MCG/ACT nasal spray Administer 2 sprays into each nostril 2 times daily. Shake gently. Before first use, prime pump. After use, clean tip and replace cap. 16 g 1 lisinopril 5 MG tablet Take 1 tablet (5 mg) by mouth daily. 90 tablet 1 omega-3 (Fish Oil) 1000 MG capsule Take 3,000 mg by mouth. Red Yeast Rice Extract (RED YEAST RICE PO) Take 600 mg by mouth daily. Synthroid 75 MCG tablet No facility-administered medications prior to visit. Past Medical History: Diagnosis Date History of hyperparathyroidism History of mononucleosis Hypothyroidism Medullary sponge kidney Statin intolerance Pain Social History Tobacco Use Smoking status: Never Smokeless tobacco: Never Substance Use Topics Alcohol use: No Alcohol/week: 0.0 standard drinks of alcohol Past Surgical History: Procedure Laterality Date SECTION (HISTORICAL) 3 pregnancies COLONOSCOPY 2017 PARATHYROIDECTOMY 2004 TUBAL LIGATION Family History Problem Relation Name Age of Onset Ovarian cancer Neg Hx Dementia Mother 91 ECF/ [place] facility resident No Known Problems Brother Colon cancer Neg Hx No Known Problems Brother Depression Father Breast cancer Neg Hx High Blood Pressure Mother 91 No Known Problems Sister No Known Problems Brother Uterine cancer Neg Hx No Known Problems Sister No Known Problems Maternal Grandmother Objective BP 118/75 (BP Location: Left arm, Patient Position: Sitting, BP Cuff Size: Large adult) Pulse 67 Temp 36.5 C (97.7 F) (Temporal) Ht 5' 5 (1.651 m) Wt 165 lb (74.8 kg) SpO2 95% BMI 27.46 kg/m Physical Exam Vitals reviewed. Constitutional: General: She is not in acute distress. Appearance: Normal appearance. She is not ill-appearing or toxic-appearing. Eyes: General: No scleral icterus. Conjunctiva/sclera: Conjunctivae normal. Pupils: Pupils are equal, round, and reactive to light. Neck: Vascular: No carotid bruit. Cardiovascular: Rate and Rhythm: Normal rate and regular rhythm. Heart sounds: Normal heart sounds. No murmur heard. Pulmonary: Effort: Pulmonary effort is normal. No respiratory distress. Breath sounds: Normal breath sounds. No wheezing or rales. Abdominal: General: Bowel sounds are normal. There is no distension. Palpations: Abdomen is soft. There is no mass. Tenderness: There is no abdominal tenderness. There is no guarding. Musculoskeletal: Cervical back: Normal range of motion and neck supple. No rigidity or tenderness. Right lower leg: No edema. Left lower leg: No edema. Lymphadenopathy: Cervical: No cervical adenopathy. Skin: General: Skin is warm and dry. Coloration: Skin is not jaundiced or pale. Neurological: Mental Status: She is alert. Psychiatric: Mood and Affect: Mood normal. Data Reviewed and Summarized Labs: Imaging/Testing: EKG was done in the office showed a normal sinus rhythm at a rate of 63 bpm. WV interval was 176 QRS duration was [address] no signs of acute ST or T wave abnormalities. Questionable biphasic P wave in V1 and V2. But otherwise unremarkable normal EKG does show normal R wave progression. No signs of acute ectopy. Otherwise unremarkable normal EKG. Rich Santizo PA-C 01/16/2023 Please note that portions of this note may have been completed with voice recognition software. Documentation reviewed prior to signing but minor errors in respite worker may have occurred. documented in this encounter [facility] [employer] 12-30-2022 Telephone encounter Note Rx loaded [facility] 12-30-2022 Miscellaneous Notes Rx loaded documented in this encounter [facility] [employer] 11-29-2022 Miscellaneous Notes Requester: Patient Change of pharmacies. Last Visit in Endocrinology: Provider name: yRan Barbosa MD , Date 07/01/2022 Next Scheduled Appt in Endo: Visit date not found Last Refill: 07/01/22 Number of Refills given: 3 Requested Prescriptions Pending Prescriptions Disp Refills alendronate (FOSAMAX) 70 mg tablet 12 tablet 3 Sig: Take 1 tablet by mouth one time a week. In AM with cup of water on empty stomach. Nothing else by mouth and stay upright for 30 min. Please review and advise. Charity Quiroz RN documented in this encounter [facility] 11-18-2022 Telephone encounter Note Triage message reviewed with clinical staff. [facility] 11-18-2022 Miscellaneous Notes Triage message reviewed with clinical staff. S: Patient spoke with [facility] nurse regarding cough B: [facility] 11/13/22 A: Patient complaining new onset dry cough. Denies fever, earache, sore throat, chest pain, difficulty breathing, sinus congestion. Patient states sinus congestion has improved with Flonase. R: Home care advice given OTC options for cough. Patient understands care advice. No further needs at this time. Patient instructed to call back with new or worsening symptoms. Reason for Disposition Cough with no complications Protocols used: [id number] documented in this encounter [facility] 11-16-2022 Telephone encounter Note S: Patient spoke with [facility] nurse regarding cough B: [facility] 11/13/22 A: Patient complaining new onset dry cough. Denies fever, earache, sore throat, chest pain, difficulty breathing, sinus congestion. Patient states sinus congestion has improved with Flonase. R: Home care advice given OTC options for cough. Patient understands care advice. No further needs at this time. Patient instructed to call back with new or worsening symptoms. Reason for Disposition Cough with no complications Protocols used: [id number] [facility] 11-16-2022 Miscellaneous Notes S: Patient spoke with [facility] nurse regarding cough B: [facility] 11/13/22 A: Patient complaining new onset dry cough. Denies fever, earache, sore throat, chest pain, difficulty breathing, sinus congestion. Patient states sinus congestion has improved with Flonase. R: Home care advice given OTC options for cough. Patient understands care advice. No further needs at this time. Patient instructed to call back with new or worsening symptoms. Reason for Disposition Cough with no complications Protocols used: [id number] documented in this encounter [facility] 09-19-2022 Telephone encounter Note Faxed referral w/colonoscopy report and records for pt to be sched - Their office policy is for pt to call and sched. [facility] 09-19-2022 Miscellaneous Notes Faxed referral w/colonoscopy report and records for pt to be sched - Their office policy is for pt to call and sched. Name of caller: Devin Contact phone number: [phone] Relationship to Patient: patient Provider: [facility] Practice: [facility] Chief Complaint/Reason for Call: Pt called stating Dr. Oliva's office needs a copy of the last colonoscopy pt had in 2017, would like it faxed to [phone] Best time of day caller can be reached: any Patient advised that office/PCP has 24-48 business hours to return their call: No documented in this encounter [facility] 09-19-2022 Telephone encounter Note Name of caller: Devin Contact phone number: [phone] Relationship to Patient: patient Provider: [facility] Practice: [facility] Chief Complaint/Reason for Call: Pt called stating Dr. Oliva's office needs a copy of the last colonoscopy pt had in 2017, would like it faxed to [phone] Best time of day caller can be reached: any Patient advised that office/PCP has 24-48 business hours to return their call: No [facility] 09-09-2022 Telephone encounter Note Faxed referral w/records for pt to be sched - Their office policy is for pt to call and sched. (letter sent). [facility] 09-09-2022 Miscellaneous Notes Faxed referral w/records for pt to be sched - Their office policy is for pt to call and sched. (letter sent). Patient says that's correct that's the number and patient says she don't know what else to do. Referrals were faxed on 08/10/22 and 09/09/22 with info letters mailed both times. Please verify office number pt is calling. Dr Oliva's office is [phone] Name of caller: Devin Contact phone number: [phone] Relationship to Patient: patient Provider: Dr. Fernch Practice: [facility] Chief Complaint/Reason for Call: Patient stated she called Dr. Oliva office they stated they never received a fax from the office. Patient stated they need the Referral to be refax and they need copies of her old colonoscopies. Please advise fax number [phone]. Best time of day caller can be reached: any Patient advised that office/PCP has 24-48 business hours to return their call: N/A documented in this encounter [facility] [employer] 09-09-2022 Telephone encounter Note Patient says that's correct that's the number and patient says she don't know what else to do. [facility] 09-09-2022 Telephone encounter Note Referrals were faxed on 08/10/22 and 09/09/22 with info letters mailed both times. Please verify office number pt is calling. Dr Oliva's office is [phone] [facility] [employer] 09-06-2022 Telephone encounter Note Name of caller: Devin Contact phone number: [phone] Relationship to Patient: patient Provider: Dr. French Practice: [facility] Chief Complaint/Reason for Call: Patient stated she called Dr. Oliva office they stated they never received a fax from the office. Patient stated they need the Referral to be refax and they need copies of her old colonoscopies. Please advise fax number [phone]. Best time of day caller can be reached: any Patient advised that office/PCP has 24-48 business hours to return their call: N/A [facility] 07-01-2022 Instructions Ryan Barbosa MD - 07/01/2022 11:44 AM EST Start alendronate 70 mg weekly - Take on empty stomach with large glass of water only. Take no other pills or food, no lying down for 30 minutes. Get labs done at [facility]. Will call with results. See me again in 12 months. 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 Keshawn French, with primary hypothyroidism, osteopenia, and hypertension. Takes levothyroxine six days a week. She has past history of primary hyperparathyroidism, s/p right superior parathyroidectomy in 05/30, medullary sponge kidney with history of nephrocalcinosis and nephrolithiasis. Medication list reviewed, reconciled. Patient reports feeling well. No height loss or fragility fractures noted this year. No history of hypertension. No neck swelling, dysphagia. Has family history of osteoporosis. Maximal adult height is 65. Had COVID vaccination and flu shot. Current Outpatient Medications on File Prior to Visit Medication Sig lisinopril (ZESTRIL, PRINIVIL) 5 mg tablet Take 5 mg by mouth once daily. levothyroxine (SYNTHROID) 75 mcg tablet Take one pill daily, no pill on Sundays. cholecalciferol (VITAMIN D-3) 5,000 unit tab Take 1 tablet by mouth once daily. Review of patient's allergies indicates: No Known Allergies Answers submitted by the patient for this visit: Core Review of Systems (Submitted on 06/28/2022) Fever : No Night Sweats: No Recent Unintentional Weight Change: No Nasal Congestion: No Hearing Loss: Yes Vision Disturbance: No A Cough: No Difficulty Breathing?: No Chest Pain: No Irregular Heart Beat: No Leg Swelling: No Nausea: No Diarrhea: No Black Tarry Stools: No Difficulty Urinating?: No Awaken at Night More Than Once to Urinate?: No Joint Pain or Stiffness: No Muscle Aches: No Leg or Foot Discomfort at Night?: No A Rash: No Dizziness: No Headaches: No Memory Loss: No Seizures: No BP 139/81 Pulse 69 Resp 16 Ht 163.7 cm (5' 4.45) Wt 73.1 kg (161 lb 3.2 oz) SpO2 99% BMI 27.29 kg/m Weight up 2 pounds since 06/2021. Height stable. General appearance: Well-appearing overweight (BMI > 25) female, alert, in no acute distress, well-hydrated, well nourished. BP near normal. Skin: Skin color, texture, turgor normal, no suspicious rashes or lesions Head: normocephalic, no masses, lesions, tenderness or abnormalities Eyes: Anicteric sclera. Pupils are equally round. Extraocular movements are intact. Ears: not examined Nose/Sinuses: Nares normal. No drainage or sinus tenderness. Oropharynx: Lips, mucosa, and tongue normal, teeth and gums not examined. Neck: Supple, no adenopathy; no palpable thyroid enlargement. Well-healed thyroidectomy incision. Lungs: Breathing unlabored. Heart: RRR. No ectopy Abdomen: deferred Extremities: No deformities, edema, skin discoloration, clubbing or cyanosis. Good capillary refill. Musculoskeletal: Spine range of motion not tested. Muscular strength intact, No joint swelling, deformity, or tenderness Neuro: Gait normal. Sensation grossly intact. DEXA bone densitometry in 06/2019 showed T-scores as follows: lumbar -0.8 (up 5%), hip -1.1 (up 5%), femoral neck -1.8 (unchanged). DEXA bone densitometry in 07/2021 showed T-scores as follows: lumbar -0.6, hip -1.3, femoral neck -2.0. FRAX 1.8/20.3 IMPRESSION: Osteopenia - height and DEXA stable, but has increased FRAX risk score. Start bisphosphonate. Hypothyroidism - check TSH, free T4 on the current levothyroxine dose Vitamin D deficiency - check vitamin D status PLAN: Check TSH, free T4, 25-hydroxyvitamin D level Will call with results Start alendronate 70 mg once weekly - take on empty stomach with large glass of water only. Take no other pills or food, no lying down for 30 minutes. RTO in [address] French for regular health care needs Ryan Barbosa MD, FACP I spent a total of 30 minutes on the date of service which included preparing to see the patient, [id number] patient care, completing clinical documentation, performing a medically appropriate examination, counseling and educating the patient/family/caregiver and ordering medications, tests, or procedures. documented in this encounter [facility] 06-07-2022 Telephone encounter Note Talked to Brett and verified with him that Rich Santizo did hand write an Rx for controlled medication due to unable to do e-scribing until he is authorized to do this. Brett verbalized understanding. [facility] 06-07-2022 Miscellaneous Notes Talked to Brett and verified with him that Rich Santizo did hand write an Rx for controlled medication due to unable to do e-scribing until he is authorized to do this. Brett verbalized understanding. Name of caller: Brett Contact phone number: [phone] Relationship to Patient: [facility] Retail Pharmacy Provider: Dr. French Practice: [facility] Chief Complaint/Reason for Call: Caller stated they received pt Rx for HYDROcodone-acetaminophen ([place]) 5-325 MG tablet and stated they received a hand written order from Rich Santizo and wanted to verify this is ok. Please advise. Thank you. Best time of day caller can be reached: Any Patient advised that office/PCP has 24-48 business hours to return their call: Yes documented in this encounter [facility] 06-07-2022 Telephone encounter Note Name of caller: Brett Contact phone number: [phone] Relationship to Patient: [facility] Retail Pharmacy Provider: Dr. French Practice: [facility] Chief Complaint/Reason for Call: Caller stated they received pt Rx for HYDROcodone-acetaminophen ([place]) 5-325 MG tablet and stated they received a hand written order from Rich Santizo and wanted to verify this is ok. Please advise. Thank you. Best time of day caller can be reached: Any Patient advised that office/PCP has 24-48 business hours to return their call: Yes [facility] 03-05-2011 History of Past i llness Narrative Problem Noted Date Resolved Date Hyperparathyroidism, primary 03/05/201103/2011 Hyperparathyroidism 04/02/2003 03/05/2011 documented as of this encounter (statuses as of 07/03/2022) [facility] History of Past illness Narrative* Problem Noted Date Resolved Date Hyperparathyroidism, primary 03/05/201103/2011 Hyperparathyroidism 04/02/2003 03/05/2011 documented as of this encounter (statuses as of 11/29/2022) [facility] note* Diagnosis Pain of right thumb Pain in limb Digital mucinous cyst Ganglion, unspecified documented in this encounter [facility] Work Phone: Evaluation noteNo assessment information available [facility] Work Phone: Evaluation note* Diagnosis Postoperative hypothyroidism- Primary Postsurgical hypothyroidism Vitamin D deficiency Unspecified vitamin D deficiency Osteopenia, unspecified location documented in this encounter [facility] note* Diagnosis Osteopenia, unspecified location documented in this encounter [facility] note* Diagnosis Essential hypertension- Primary Unspecified essential hypertension Hypercholesterolemia Pure hypercholesterolemia Screening for diabetes mellitus Chest pressure Other chest pain Statin intolerance Polyp of ascending colon, unspecified type documented in this encounter [facility] note* Diagnosis Sinus congestion Other diseases of nasal cavity and sinuses documented in this encounter [facility] note* Diagnosis Sinus congestion Other diseases of nasal cavity and sinuses documented in this encounter [facility] note* Diagnosis Sinus congestion Other diseases of nasal cavity and sinuses documented in this encounter [facility] note* Diagnosis Hypercholesterolemia- Primary Pure hypercholesterolemia Cough secondary to angiotensin converting enzyme inhibitor (DEVON-I) Cough Labile essential hypertension Primary hypothyroidism Unspecified hypothyroidism Vitamin D deficiency Osteopenia, unspecified location documented in this encounter [facility] note* Diagnosis Sinus congestion Other diseases of nasal cavity and sinuses documented in this encounter [facility] note* Diagnosis Acute low back pain without sciatica, unspecified back pain laterality documented in this encounter [facility] note* Diagnosis Osteopenia, unspecified location documented in this encounter [facility] note* Diagnosis Osteopenia, unspecified location documented in this encounter [facility] note* Diagnosis Women's annual routine gynecological examination- Primary Encounter for screening mammogram for malignant neoplasm of breast [facility]* Diagnosis Postoperative hypothyroidism- Primary Postsurgical hypothyroidism Osteopenia, unspecified location Vitamin D deficiency Unspecified vitamin D deficiency Hypercholesterolemia Pure hypercholesterolemia Hypertension, unspecified type documented [facility] this [facility]* Diagnosis Labile essential hypertension- Primary Hypercholesterolemia Pure hypercholesterolemia Postoperative primary hypothyroidism documented [facility] this encounter [facility]* Diagnosis Labile essential hypertension documented in this encounter [facility] note* Diagnosis Research exam- Primary Examination of participant in clinical trial documented in this encounter [facility] note* Diagnosis Essential hypertension- Primary Unspecified essential hypertension Snoring Other dyspnea and respiratory abnormality Acute pain of right shoulder Hypercholesterolemia Pure hypercholesterolemia documented in this encounter [facility] note* Diagnosis Acute pain of right shoulder documented in this encounter [facility] note* Diagnosis Acute pain of right shoulder- Primary Osteoarthritis of right shoulder, unspecified osteoarthritis type documented in this encounter [facility] note* Diagnosis Acute pain of right shoulder Osteoarthritis of right shoulder, unspecified osteoarthritis type documented in this encounter [facility] note* Diagnosis Essential hypertension Unspecified essential hypertension documented in this encounter [facility] note* Diagnosis Essential hypertension Unspecified essential hypertension documented [facility] this encounter [facility]* Diagnosis Essential hypertension- Primary Unspecified essential hypertension Hypercholesterolemia Pure hypercholesterolemia Screening for diabetes mellitus Chest pressure Other chest pain Statin intolerance Polyp of ascending colon, unspecified type Essential hypertension Unspecified essential hypertension documented [facility] this encounter [facility]* Diagnosis Essential hypertension- Primary Unspecified essential hypertension Hypercholesterolemia Pure hypercholesterolemia Screening for diabetes mellitus Chest pressure Other chest pain Statin intolerance Polyp of ascending colon, unspecified type Encounter for screening mammogram for malignant neoplasm of breast documented [facility] this encounter [facility]* Diagnosis Essential hypertension- Primary Unspecified essential hypertension Hypercholesterolemia Pure hypercholesterolemia Screening for diabetes mellitus Chest pressure Other chest pain Statin intolerance Polyp of ascending colon, unspecified type Sinus congestion Other diseases of nasal cavity and sinuses documented [facility] this encounter [facility]* Diagnosis Osteopenia, unspecified location documented in this encounter [facility]* Diagnosis Essential hypertension- Primary Unspecified essential hypertension Hypercholesterolemia Pure hypercholesterolemia Screening for diabetes mellitus Chest pressure Other chest pain Statin intolerance Polyp of ascending colon, unspecified type Well woman exam with routine gynecological exam- Primary Routine gynecological examination Encounter for screening mammogram for malignant neoplasm of breast documented in this encounter [facility] note* Diagnosis Postoperative hypothyroidism- Primary Postsurgical hypothyroidism Hypercholesterolemia Pure hypercholesterolemia Hypertension, unspecified type Osteopenia, unspecified location Premature menopause documented in this encounter [facility] note* Diagnosis Osteopenia, unspecified location documented in this encounter [facility] note* Diagnosis Postoperative hypothyroidism Postsurgical hypothyroidism documented in this encounter [facility] note* Diagnosis Examination of participant in clinical trial- Primary documented in this encounter [facility] note* Diagnosis Premature menopause documented in this encounter [facility] for referral (narrative)* Consultation (Routine) - Pending Review Specialty Diagnoses / Procedures Referred By Shaye hernandez Referred To Contact Hand Surgery / Orthopedic Surgery Diagnoses Acute pain of right shoulder Osteoarthritis of right shoulder, unspecified osteoarthritis type Procedures [place] [facility] 60 MINUTES Mauro Tomlinson DO [address] [place] [address] Sonu Iverson MD [address] [place] [address] [place] [address] Referral ID Status Reason Start Date Expiration Date Visits Requested Visits Authorized [id number] Pending Review Specialty Services Required 04/27/2024 04/27/2025 1 1 [facility] for visit Narrative* Diagnostic Procedure Only (Routine) - Closed Specialty Diagnoses / Procedures Referred By Shaye hernandez Referred To Contact XR IMAGING Diagnoses Premature menopause Procedures DXA-AXIAL SKELETON DXA BONE DENSITY STUDY SITES AXIAL Ryan Whitley MD [address] [place] [address], [address] [place] [address] Phone: tel: fax: [place] [id number] Referral ID Status Reason Start Date Expiration Date V isits Requested Visits Authorized [id number] Closed Auto-Generate d Referral 01/19/2025 02/18/2026 1 1 [facility] Assessments Diagnosis Chronic pain of left ankle Advance Directives No Advanced Directives Records FoundDocuments on File Type Date Recorded Patient General Neurologist Expl anation ACP-Advance Directive ACP-Power of Project Administrative Assistant Latest Code Status on File Code Status Date Activated Date Inactivated Comments Full Code 03/03/2017 7:13 AM 03/03/2017 11:58 AM Documents on File Type Date Recorded Patient General Neurologist Expl anation Advance Directives and Living Will Power of Project Administrative Assistant Advance Directive Response Recorded Date/ Time Living Will Yes January 26, 2016 1 1:05am Power of Project Administrative Assistant Yes January 26, 2016 11:05am Summary Purpose Family History No Family History Records FoundNo Family History Records FoundNo Family History Records FoundNo Family History Records FoundNo Family History Records FoundNo Family History Records Found Chief Complaint and Reason for Visit Chief Complaint URINARY CALCULUS Chief Complaint CYST OF KIDNEY Additional Source Comments INFORMATION SOURCE (unrecogn ized section and content) DATE CREATED AUTHOR 11/15/2020 [facility] DATE CREATED AUTHOR AUTHOR'S ORGANIZ ATION 04/06/2021 [facility] DATE CREATED AUTHOR AUTHOR'S ORGANIZ ATION 03/07/2025 [facility] DATE CREATED AUTHOR AUTHOR'S ORGANIZ ATION 03/23/2025 [facility] DATE CREATED AUTHOR AUTHOR'S ORGANIZ ATION 05/11/2025 [facility] DATE CREATED AUTHOR AUTHOR'S ORGANIZ ATION 06/03/2025 [facility] Goals (unrecognized section and content) Goals may be documented in a n alternate sectionGoals may be documented in an alternate sectionGoals may be documented in an alternate section Source Comments (unrecognize d section and content) In the event this informatio n is protected by the Federal Confidentiality of Alcohol and Drug Abuse Patient Records regulations: The Federal rules restrict any use of the information to criminally investigate or prosecute any alcohol or drug abuse patient.[facility] the event this information is protected by the Federal Confidentiality of Alcohol and Drug Abuse Patient Records regulations: The Federal rules restrict any use of the information to criminally investigate or prosecute any alcohol or drug abuse patient.[facility] the event this information is protected by the Federal Confidentiality of Alcohol and Drug Abuse Patient Records regulations: The Federal rules restrict any use of the information to criminally investigate or prosecute any alcohol or drug abuse patient.[facility] the event this information is protected by the Federal Confidentiality of Alcohol and Drug Abuse Patient Records regulations: The Federal rules restrict any use of the information to criminally investigate or prosecute any alcohol or drug abuse patient.[facility] the event this information is protected by the Federal Confidentiality of Alcohol and Drug Abuse Patient Records regulations: The Federal rules restrict any use of the information to criminally investigate or prosecute any alcohol or drug abuse patient.[facility] the event this information is protected by the Federal Confidentiality of Alcohol and Drug Abuse Patient Records regulations: The Federal rules restrict any use of the information to criminally investigate or prosecute any alcohol or drug abuse patient.[facility] Center[facility] the event this information is protected by the Federal Confidentiality of Alcohol and Drug Abuse Patient Records regulations: The Federal rules restrict any use of the information to criminally investigate or prosecute any alcohol or drug abuse patient.[facility] Center[facility] the event this information is protected by the Federal Confidentiality of Alcohol and Drug Abuse Patient Records regulations: The Federal rules restrict any use of the information to criminally investigate or prosecute any alcohol or drug abuse patient.[facility] Center[facility] the event this information is protected by the Federal Confidentiality of Alcohol and Drug Abuse Patient Records regulations: The Federal rules restrict any use of the information to criminally investigate or prosecute any alcohol or drug abuse patient.[facility] Center[facility] the event this information is protected by the Federal Confidentiality of Alcohol and Drug Abuse Patient Records regulations: The Federal rules restrict any use of the information to criminally investigate or prosecute any alcohol or drug abuse patient.[facility] Center[facility] the event this information is protected by the Federal Confidentiality of Alcohol and Drug Abuse Patient Records regulations: The Federal rules restrict any use of the information to criminally investigate or prosecute any alcohol or drug abuse patient.[facility] Center[facility] the event this information is protected by the Federal Confidentiality of Alcohol and Drug Abuse Patient Records regulations: The Federal rules restrict any use of the information to criminally investigate or prosecute any alcohol or drug abuse patient.[facility] CenterIn the event this information is protected by the Federal Confidentiality of Alcohol and Drug Abuse Patient Records regulations: The Federal rules restrict any use of the information to criminally investigate or prosecute any alcohol or drug abuse patient.[facility] CenterIn the event this information is protected by the Federal Confidentiality of Alcohol and Drug Abuse Patient Records regulations: The Federal rules restrict any use of the information to criminally investigate or prosecute any alcohol or drug abuse patient.[facility] CenterIn the event this information is protected by the Federal Confidentiality of Alcohol and Drug Abuse Patient Records regulations: The Federal rules restrict any use of the information to criminally investigate or prosecute any alcohol or drug abuse patient.[facility] CenterIn the event this information is protected by the Federal Confidentiality of Alcohol and Drug Abuse Patient Records regulations: The Federal rules restrict any use of the information to criminally investigate or prosecute any alcohol or drug abuse patient.[facility] CenterIn the event this information is protected by the Federal Confidentiality of Alcohol and Drug Abuse Patient Records regulations: The Federal rules restrict any use of the information to criminally investigate or prosecute any alcohol or drug abuse patient.[facility] Reason for Visit (unrecogniz ed section and content) Reason Comments Annual Thyroid visit Established Patient Reason Onset Date Comments Cough 11/16/2022 Reason Onset Date Comments Refill Request 11/29/2022 Reason Onset Date Comments Med Refill 12/30/2022 Reason Comments Follow-up 6 month Reason Onset Date Comments Med Refill 01/24/2023 Reason Onset Date Comments Med Refill 04/12/2023 Reason Onset Date Comments Med Refill 04/28/2023 Reason Comments Follow-up 6 month med check Reason Onset Date Comments Med Refill 07/29/2023 Reason Onset Date Comments Medication Problem 06/07/2022 HYDROcodone-a cetaminophen ([place]) 5-325 MG tablet Reason Onset Date Comments Refill Request 12/01/2023 Reason Comments Refill Request Reason Comments Annual Exam Annual exam Reason Comments Follow Up Reason Comments Results Reason Comments Follow-up Med check Reason Comments Blood Pressure Check Reason Comments Informed Consent [id number] Reason Comments Referral Sleep study Flu Vaccine Patient has agreed t o receive influenza vaccine in the office today. Reason Onset Date Comments Appointment 04/16/2024 Reschedule nurse visit Reason Onset Date Comments Referral 04/27/2024 Dr Iverson Reason Comments Shoulder Pain Specialty Diagnoses / Procedures Referred By Shaye hernandez Referred To Contact Hand Surgery / Orthopedic Surgery Diagnoses Acute pain of right shoulder Osteoarthritis of right shoulder, unspecified osteoarthritis type Procedures [place] [facility]PAT[facility]DM 60 MINUTES Mauro Tomlinson F, DO [address] [place] [address] Sonu Iverson MD [address] [place] [address] [place] [id number] Referral ID Status Reason Start Date Expiration Date Visits Requested Visits Authorized [id number] Pending Review Specialty Services Required 04/27/2024 04/27/2025 1 1 Reason Onset Date Comments Referral 09/06/2022 Reason Onset Date Comments notes for colonoscopy 09/19/2022 Reason Comments Med Refill Reason Onset Date Comments Med Refill 09/14/2024 Reason Comments Follow Up Reason Onset Date Comments Refill Request 02/03/2025 Reason Comments Research [id number] Care Teams (unrecognized sec tion and content) Composing Room Machinist Relationship Specialty Start Date End Date Keshawn French, DO [address] [place], [place] [id number] PCP - General 03/17/03 Composing Room Machinist Relationship Specialty Start Date End Date Keshawn French DO [address] [place] [address] PCP - General 02/01/15 Composing Room Machinist Relationship Specialty Start Date End Date Keshawn French DO [address] [place] [address] PCP - General 02/01/15 Composing Room Machinist Relationship Specialty Start Date End Date Keshawn French, DO [address] [place] [address] PCP - General 03/17/03 Composing Room Machinist Relationship Specialty Start Date End Date Keshawn French, DO [address] [place] [address] PCP - General 02/01/15 Composing Room Machinist Relationship Specialty Start Date End Date Mauro Tomlinson DO [address] [place] [address] PCP - General Family Medicine 01/16/23 Composing Room Machinist Relationship Specialty Start Date End Date Mauro Tomlinson DO [address] [place] [address] PCP - General Family Medicine 01/16/23 Composing Room Machinist Relationship Specialty Start Date End Date Mauro Tomlinson DO [address] [place] [address] PCP - General Family Medicine 01/16/23 Composing Room Machinist Relationship Specialty Start Date End Date Mauro Tomlinson, [address] [place] [address] PCP - General Family Medicine 01/16/23 Composing Room Machinist Relationship Specialty Start Date End Date Mauro Tomlinson, [address] [place] [phone] PCP - General Family Medicine 01/16/23 Composing Room Machinist Relationship Specialty Start Date End Date Mauro Tomlinson, [address] [place] [id number] PCP - General Family Medicine 01/16/23 Composing Room Machinist Relationship Specialty Start Date End Date Keshawn French DO [address] [place] [address] PCP - General 02/01/15 01/15/23 Mauro Tomlinson, [address] [place] [phone] PCP - General Family Medicine 01/16/23 Composing Room Machinist Relationship Specialty Start Date End Date Keshawn French DO [address] [place] [address] PCP - General 03/17/03 Com[employer] Room [employer]inist Relationship Specialty Start Date End Date Keshawn French DO [address] [place] [address] PCP - General 03/17/03 Composing Room Machinist Relationship Specialty Start Date End Date Mauro Tomlinson, DO [address] [place] [phone] PCP - General Family Medicine 01/19/24 Composing Room Machinist Relationship Specialty Start Date End Date Mauro Tomlinson, DO [address] [place] [phone] PCP - General Family Medicine 01/19/24 Composing Room Machinist Relationship Specialty Start Date End Date Mauro Tomlinson, DO [address] [place] [phone] PCP - General Family Medicine 01/16/23 Composing Room Machinist Relationship Specialty Start Date End Date Mauro Tomlinson, DO [address] [place] [phone] PCP - General Family Medicine 01/16/23 Composing Room Machinist Relationship Specialty Start Date End Date Mauro Tomlinson, DO [address] [place] [phone] PCP - General Family Medicine 01/19/24 Composing Room Machinist Relationship Specialty Start Date End Date Mauro Tomlinson, DO [address] [place] [phone] PCP - General Family Medicine 01/19/24 Composing Room Machinist Relationship Specialty Start Date End Date Mauro Tomlinson, DO [address] [place] [phone] PCP - General Family Medicine 01/16/23 Composing Room Machinist Relationship Specialty Start Date End Date Mauro Tomlinson, DO [address] [place] [phone] PCP - General Family Medicine 01/16/23 Composing Room Machinist Relationship Specialty Start Date End Date GeorgetteMauro pedroza, [address] [place] [phone] PCP - General Family Medicine 01/16/23 Composing Room Machinist Relationship Specialty Start Date End Date GeorgetteMauro pedroza, DO [address] [place] [phone] PCP - General Family Medicine 01/16/23 Composing Room Machinist Relationship Specialty Start Date End Date GeorgetteMauro pedroza, [address] [place] [address] PCP - General Family Medicine 01/16/23 Composing Room Machinist Relationship Specialty Start Date End Date GeorgetteMauro pedroza, DO [address] [place] [phone] PCP - General Family Medicine 01/16/23 Composing Room Machinist Relationship Specialty Start Date End Date DaviMauro, [address] [place] [address] PCP - General Family Medicine 01/16/23 Composing Room Machinist Relationship Specialty Start Date End Date DaviMauro, DO [address] [place] [address] PCP - General Family Medicine 01/16/23 Composing Room Machinist Relationship Specialty Start Date End Date Keshawn French, DO [address] [place] [phone] PCP - General 02/01/15 Composing Room Machinist Relationship Specialty Start Date End Date Keshawn French, DO [address] [place], [place] [phone] PCP - General 02/01/15 Composing Room Machinist Relationship Specialty Start Date End Date Mauro Tomlinson DO [address] [place] [phone] PCP - General Family Medicine 01/16/23 Composing Room Machinist Relationship Specialty Start Date End Date Mauro Tomlinson DO [address] [place] [phone] PCP - General Family Medicine 01/19/24 Composing Room Machinist Relationship Specialty Start Date End Date Mauro Tomlinson DO [address] [place] [phone] PCP - General Family Medicine 01/19/24 Composing Room Machinist Relationship Specialty Start Date End Date Mauro Tomlinson DO [address] [place] [address] PCP - General Family Medicine 01/19/24 Composing Room Machinist Relationship Specialty Start Date End Date Mauro Tomlinson DO [address] [place] [phone] PCP - General Family Medicine 01/19/24 Composing Room Machinist Relationship Specialty Start Date End Date Mauro Tomlinson DO [address] [place] [address] PCP - General Family Medicine 01/19/24 Composing Room Machinist Relationship Specialty Start Date End Date Mauro Tomlinson DO [address] [place] [address] PCP - General Family Medicine 01/19/24 Composing Room Machinist Relationship Specialty Start Date End Date Mauro Tomlinson DO [address] [place] [address] PCP - General Family Medicine 01/16/23 Composing Room Machinist Relationship Specialty Start Date End Date Mauro Tomlinson DO [address] [facility] [address] [place] [address] PCP - General Family Medicine 01/19/24 FOR RECORDS PERTAINING TO PATIENTS WHO ARE OR HAVE BEEN ENROLLED IN A CHEMICAL DEPENDENCY/SUBSTANCEABUSE PROGRAM, SOME INFORMATION MAY BE OMITTED. This clinical summary was aggregated from multiple sources. Caution should be exercised in using it in the provision of clinical care. This summary normalizes information from multiple sources, and as a consequence, information in this document may materially change the coding, format and clinical context of patient data. In addition, data may be omitted in some cases. CLINICAL DECISIONS SHOULD BE BASED ON THE PRIMARY CLINICAL RECORDS. [facility]. provides no warranty or guarantee of the accuracy or completeness of information in this document.
== END | disposition home or self-care (01) ==
LOC: OPBI 07:14
PROVIDERS: PCP Internal Medicine; Referring Provider Internal Medicine; Visit Provider Internal Medicine
DX: Z12.31 Encounter for screening mammogram for malignant neoplasm of breast (principal)
CPT/HCPCS: 77063; 77067

== ENCOUNTER → 2025-07-07 | Outpatient (CLI) | payer MEDICARE, OTHER, SELFPAY ==
--- NOTE | 2025-07-07 13:33 | MRI_ITS ---
PROCEDURE: BREAST BILATERAL W/O AND W 07/07/2025 REASON FOR EXAM: MAGNETIC RESONANCE IMAGING, BREAST, WITHOUT AND WITH CONTRAST MAT 70-year-old female with dense breast tissue presents for high-risk screening MRI. TECHNIQUE: Procedure Code: [id number] Modality: MR Procedure: BREAST BILATERAL W/O AND W CONTRAST: 15 mL of IV Clariscan COMPARISON: Mammogram 06/17/2025, 05/18/2024 FINDINGS: TISSUE DENSITY: The breasts are heterogeneously dense, which may obscure small masses. Background Parenchymal Enhancement: Mild RIGHT Breast: No suspicious mass or non-mass enhancement. LEFT Breast: No suspicious mass or non-mass enhancement. Other Findings: No suspicious axillary or internal mammary lymph nodes. Visualized portions of the thoracic and abdominal viscera are unremarkable. MRI/Breast Bilateral W/O and W IMPRESSION: There is no MR evidence of malignancy in either breast. OVERALL FINAL ASSESSMENT BI-RADS 1: NEGATIVE RECOMMENDATION: Routine annual follow-up in 1 Year Reading Location: [id number]
== END | disposition home or self-care (01) ==
LOC: OPMRI 13:16
PROVIDERS: PCP Internal Medicine; Referring Provider Internal Medicine; Visit Provider Internal Medicine
DX: R92.30 Dense breasts, unspecified (principal); R92.8 Other abnormal and inconclusive findings on diagnostic imaging of breast
CPT/HCPCS: 77049; A9575; A4216; C8908